=== PATIENT | male | born 1965 | race Caucasian/White ===

== ENCOUNTER 2016-07-07 14:28 | Emergency (ER) | payer OTHER ==
[~2016-07-07] VITALS: Ht 177.8 cm; Wt 70.3 kg
[~2016-07-07 14:28] MED LIST: ADVAIR 250-501 EACH INH; AMITRIPTYLINE H25 M2 PO; AMITRIPTYLINE H75 MG PO; AMITRIPTYLINE100 MG PO; BENTYL 10 MG CA10 MG PO; BENTYL10 M1 PO; CATAPRES 0.1MG0.1 MG PO; CIPRO 500MG (E500 MG PO; CIPRO500 M1 PO; DEPAKOTE ER500 MG PO; DEPAKOTE500 MG; DIVALPROEX SOD250 M2 PO; DIVALPROEX SOD250 M3 PO; DIVALPROEX SOD250 MG PO; DIVALPROEX SOD500 M2 PO; FENTANYL TR75 MCG/HR PO; FENTANYL TR75 MCG/HR TD; FLONASE120 SPRAY/ NASB; GABAPENTIN400 M2 PO; GABAPENTIN800 MG PO; KEPPRA750 M1 PO; LEVETIRACETAM500 MG PO; LEVSIN/SL0.125 MG PO; LEVSIN0.125 M1 PO; LOMOTIL 0.025 M1 TAB PO; MAGNESIUM OXID400 MG PO; MELATONIN3 M4 PO; METHOCARBAMOL750 MG PO; METRONIDAZOLE500 MG PO; MORPHINE SULFAT15 M4 PO; MORPHINE SULFAT15 MG PO; NAPROXEN500 MG PO; NICODERM C21 MG/24 H TOP; NICORETTE4 MG; OXYCODONE AND A1 TA2 PO; PANTOPRAZOLE SO40 M1 PO; PERCOCET 325 MG1 TA2 PO; POLYETHYLE17 GM/Dos2 PO; PRILOSEC20 MG PO; PROAIR HFA0.09 MG/Ac INH; RELISTOR 112 MG/0.6; RELISTOR12 MG/0.2 INJ; RELISTOR12 MG/0.6 SC; REMERON30 MG PO; TOPAMAX100 M1 PO; TYLENOL #31 TAB PO; UPCAL D 2500 MG1 POW PO; VITAMIN D31000 IU PO; ZITHROMAX250 MG PO; ZOFRAN 4 MG TABL4 MG PO; ZOFRAN ODT4 MG SL
--- NOTE | 2016-07-07 14:53 | ED PSYCHIATRIC COMPLAINT ---
History of Present Illness General Chief Complaint: ETOH/Drug Related Complaint Stated Complaint: PT HUNG OVER FROM DRINKING ALCOHOL LAST NIGHT Source: patient, old records, EMS Exam Limitations: no limitations Vital Signs & Intake/Output Vital Signs & Intake/Output Vital Signs Date Time Temp Pulse Resp B/P Pulse O2 O2 Flow FiO2 Ox Delivery Rate 07/07 1906 98.3 69 18 124/74 100 Room Air 07/07 1558 99 Room Air 07/07 1554 98.3 79 18 155/60 07/07 1518 99.0 90 20 155/78 96 Room Air ED Intake and Output 07/08 0000 07/07 1200 Intake Total 60 Output Total Balance 60 Intake, Oral 60 Patient 155 lb Weight Allergies Coded Allergies: Sulfa (Sulfonamide Antibiotics) (Intermediate, HIVES 12/10/15) acetaminophen (From VICODIN) (Intermediate, HIVES 12/10/15) hydrocodone (From VICODIN) (Intermediate, HIVES 12/10/15) tramadol (Intermediate, HIVES 12/10/15) aripiprazole (Intermediate, RASH PER PT. 12/10/15) Reconcile Medications Albuterol Sulfate (Ventolin Hfa) 90 MCG HFA.AER.AD 2 PUF INH Q4-6 PRN PRN COPD (Reported) Amitriptyline HCl 25 MG TABLET 1 TAB PO QPM psychiatric/sleep Divalproex Sodium 500 MG TABLET.DR 1 TAB PO TID SEIZURES (Reported) Divalproex Sodium (Divalproex Sodium ER) 250 MG TAB.ER.24H 1 TAB PO TID SEIZURES (Reported) Fluticasone/Salmeterol (Advair 250-50 Diskus) 1 EACH BLST.W.DEV 1 PUF INH BID ASTHMA (Reported) Gabapentin 400 MG CAPSULE 3 CAP PO TID SEIZURES (Reported) Levetiracetam (Keppra) 750 MG TABLET 1,500 MG PO BID SEIZURES (Reported) Melatonin 3 MG TABLET 2 TAB PO QHS SLEEP (Reported) Methylnaltrexone [place] (Relistor) 12 MG/0.6 ML VIAL 0.6 ML INJ AD PRN CONSTIPATION (Reported) Morphine Sulfate 15 MG TABLET 1 TAB PO BID PAIN (Reported) Pantoprazole Sodium 40 MG TABLET.DR 1 TAB PO DAILY GI (Reported) Tizanidine HCl 4 MG TABLET 1 TAB PO QPM MUSCLE RELAXER (Reported) Topiramate (Topamax) 100 MG TABLET 1 TAB PO BID SEIZURES (Reported) Varenicline Tartrate (Chantix) (Unknown Strength) TAB.DS.PK (Unknown Dose) PO AD SMOKING CESSATION (Reported) Triage Note: RECEIVED 50 YO MALE JOE FROM HOME WITH C/O HE DRANK ALOT OF ALCOHOL LAST NIGHT WITH A FRIEND AND TODAY HE FEELS LIKE HIS HEAD IS SPLITTING AND HE FEELS TERRIBLE. PT DENIES SI OR HI. PT REPORTS HE CAME TO ED BECAUSE HE FEELS VERY SICK SECONDARY TO DRINKING TO MUCH ALCOHOL LAST NIGHT. PT REPORTS HE DRANK SHOTS WITH A FRIEND. PT REPORTS POUNDING HEADACHE. Triage Nurses Notes Reviewed? yes Onset: Abrupt Duration: hour(s): (FEW) Timing: multiple episodes today Severity: mild Associated Symptoms: WORRIED HE MIGHT HAVE A SEIZURE HPI: 50 year old male with history of seizures on depakote and keppra who presents via EMS from home for chief complaint of feeling shaky with headache. Admits to drinking a lot of alcohol last night with his friend. Last drink at 9 pm. He does not drink on a daily basis. No substance abuse. He feels like he might have a seizure. He reports that he has been taking his medications as prescribed. Past History Travel History Traveled to [place] past 21 day No Medical History Any Pertinent Medical History? 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 No Review of Systems Review of Systems Constitutional: Denies: chills, fever. EENTM: Denies: blurred vision. Respiratory: Denies: short of breath. Cardiovascular: Denies: chest pain. GI: Denies: abdominal pain, nausea, vomiting. Genitourinary: Reports: no symptoms. Musculoskeletal: Denies: back pain. Skin: Reports: no symptoms. Neurological/Psychological: Reports: anxiety, tremors. Denies: confusion. Hematologic/Endocrine: Denies: bruising, bleeding, polyuria, polydipsia. Immunologic/Allergic: Denies: splenectomy. All Other Systems: Reviewed and Negative Physical Exam Physical Exam General Appearance: well developed/nourished, alert, awake, mild distress Head: atraumatic Eyes: Bilateral: PERRL, EOMI. Ears, Nose, Throat: normal pharynx, normal ENT inspection, hearing grossly normal Neck: normal inspection, supple Respiratory: normal breath sounds Cardiovascular: regular rate/rhythm Gastrointestinal: soft, non-tender Extremities: normal range of motion Neurological/Psychiatric: no motor/sensory deficits, awake, alert Appearance/Memory/Insight: disheveled Behavoir/Eye Contact/Speech: avoids eye contact, cooperative, normal speech Thoughts/Hallucinations: no apparent hallucination Skin: intact, normal color, warm/dry SAD PERSONS Done? patient not suicidal Progress Differential Diagnosis: ALCOHOL ABUSE, ALCOHOL WITHDRAWAL, SEIZURE DISORDER Plan of Care: Orders Procedure Date/time Status Regular Diet 07/07 D Active CIWA 07/07 1503 Active Add-on Test (ER Only) 07/07 1502 Active URINE DRUGS OF ABUSE 07/07 1454 Complete ETHANOL 07/07 1454 Complete COMPREHENSIVE METABOLIC PANEL 07/07 1454 Complete CBC WITHOUT DIFFERENTIAL 07/07 1454 Complete DEPAKOTE LEVEL 07/07 1452 Complete Laboratory Tests 07/07/16 1749: Urine Opiates Screen > 4000.00 H, Methadone Screen < 40, Barbiturate Screen < 60, Ur Phencyclidine Scrn < 6.00, Amphetamines Screen < 100, U Benzodiazepines Scrn < 85, Urine Cocaine Screen < 50, Urine Cannabis Screen < 5.00 07/07/16 1452: Anion Gap 11, Estimated GFR > 60, BUN/Creatinine Ratio 20.0, Glucose 81, Calcium 9.7, Total Bilirubin 0.5, AST 31, ALT 32, Alkaline Phosphatase 56, Total Protein 7.1, Albumin 3.9, Globulin 3.2, Albumin/Globulin Ratio 1.2, CBC w Diff NO MAN DIFF REQ, RBC 4.75, MCV 91.6, MCH 31.3 H, RDW 13.0, MPV 8.2, Gran % 65.2, Lymphocytes % 24.6, Monocytes % 9.7 H, Eosinophils % 0.2, Basophils % 0.3, Absolute Granulocytes 3.9, Absolute Lymphocytes 1.5, Absolute Monocytes 0.6, Absolute Eosinophils 0, Absolute Basophils 0, PUBS MCHC 34.2, Valproic Acid 47.4 L, Serum Alcohol < 10.0 LOW CIWA SCORE. PATIENT OBSERVED SEVERAL HOURS. NO EVIDENCE OF ACUTE WITHDRAWAL. FEELS BETTER AFTER EATING. (SRINIVAS CHAVEZ,ERIK) Departure Departure Time of Disposition: 1843 Disposition: HOME OR SELF CARE Condition: Stable Clinical Impression Primary Impression: Alcohol abuse Referrals: ERIC CASON APRN (PCP/Family) Additional Instructions: Take your regularly prescribed medications as directed. Please follow-up with doctor in the office. Avoid excessive alcohol intake. Departure Forms: Customer Survey General Discharge Information
[2016-07-07 15:03] LABS: ABSOLUTE BASOPHIL COUNT 0 /CUMM (0.0-0.2); ABSOLUTE EOSINOPHIL COUNT 0 /CUMM (0.0-0.7); ABSOLUTE GRANULOCYTE CT 3.9 /CUMM (1.4-6.5); ABSOLUTE LYMPH COUNT 1.5 /CUMM (1.2-3.4); ABSOLUTE MONOCYTE COUNT 0.6 /CUMM (0.10-0.60); BASOPHIL % 0.3 % (0.0-2.0); EOSINOPHIL % 0.2 % (0-5); HEMATOCRIT 43.6 % (42-52); MEAN CORPUSCULAR HGB 31.3 PG (27.0-31.0); MEAN CORPUSCULAR HGB CONC 34.2 G/DL (33.0-37.0); MEAN CORPUSCULAR VOLUME 91.6 FL (80.0-94.0); MEAN PLATELET VOLUME 8.2 FL (7.4-10.4); PLATELET COUNT 205 /CUMM (130-400); RED BLOOD CELL CT 4.75 /CUMM (4.70-6.10)
[2016-07-07 15:06] LABS: GRANULOCYTE % 65.2 % (42.2-75.2)
[2016-07-07] MEDS ORDERED: VENTOLIN HFA18 GM INH (15:27)
[2016-07-07] MEDS ORDERED: TIZANIDINE HCL4 M1 PO (15:33)
[2016-07-07] MEDS ORDERED: CHANTIX1 EACH PO (15:33)
[2016-07-07 19:06] VITALS: BP 124/74
== END 2016-07-07 19:23 ==
LOC: ERH 14:28
PROVIDERS: Emergency Medicine
DX: F10.10 Alcohol abuse, uncomplicated (principal)
CPT/HCPCS: 80307; G0480

== ENCOUNTER 2016-08-24 12:51 | Emergency (ER) | payer OTHER ==
[~2016-08-24] VITALS: Ht 182.9 cm; Wt 68.9 kg
[~2016-08-24 12:51] MED LIST changes: +CHANTIX1 EACH PO; +TIZANIDINE HCL4 M1 PO; +VENTOLIN HFA18 GM INH
[2016-08-24 13:17] LABS: ABSOLUTE BASOPHIL COUNT 0 /CUMM (0.0-0.2); ABSOLUTE EOSINOPHIL COUNT 0 /CUMM (0.0-0.7); ABSOLUTE GRANULOCYTE CT 3.3 /CUMM (1.4-6.5); ABSOLUTE LYMPH COUNT 2.8 /CUMM (1.2-3.4); ABSOLUTE MONOCYTE COUNT 0.6 /CUMM (0.10-0.60); BASOPHIL % 0.6 % (0.0-2.0); EOSINOPHIL % 0.7 % (0-5); GRANULOCYTE % 48.5 % (42.2-75.2); MEAN CORPUSCULAR HGB 30.4 PG (27.0-31.0); MEAN CORPUSCULAR HGB CONC 33.8 G/DL (33.0-37.0); MEAN CORPUSCULAR VOLUME 89.7 FL (80.0-94.0); MEAN PLATELET VOLUME 7.6 FL (7.4-10.4); PLATELET COUNT 148 /CUMM (130-400); RBC DISTRIBUTION WIDTH 12.9 % (11.5-14.5); RED BLOOD CELL CT 4.56 /CUMM (4.70-6.10); WHITE BLOOD CELL COUNT 6.8 /CUMM (4.8-10.8)
--- NOTE | 2016-08-24 13:34 | ED GENERAL ADULT ---
History of Present Illness General Chief Complaint: General Adult Stated Complaint: WEAKNESS,VOMITING,MULTI COMPLAINTS Source: patient, old records Exam Limitations: poor historian Vital Signs & Intake/Output Vital Signs & Intake/Output Vital Signs Date Time Temp Pulse Resp B/P B/P Pulse O2 O2 Flow FiO2 Mean Ox Delivery Rate 08/24 1435 98.0 70 16 118/70 100 Room Air 08/24 1315 97.8 66 18 110/90 94 Room Air 08/24 1258 97.1 56 18 109/73 94 Room Air Allergies Coded Allergies: Sulfa (Sulfonamide Antibiotics) (Intermediate, HIVES 12/10/15) acetaminophen (From VICODIN) (Intermediate, HIVES 12/10/15) hydrocodone (From VICODIN) (Intermediate, HIVES 12/10/15) tramadol (Intermediate, HIVES 12/10/15) aripiprazole (Intermediate, RASH PER PT. 12/10/15) Reconcile Medications Amitriptyline HCl 25 MG TABLET 1 TAB PO QPM psychiatric/sleep Divalproex Sodium 500 MG TABLET.DR 1 TAB PO TID SEIZURES (Reported) Divalproex Sodium (Divalproex Sodium ER) 250 MG TAB.ER.24H 1 TAB PO TID SEIZURES (Reported) Gabapentin 400 MG CAPSULE 3 CAP PO TID SEIZURES (Reported) Levetiracetam (Keppra) 750 MG TABLET 1,500 MG PO BID SEIZURES (Reported) Magnesium Oxide 400 MG TABLET 1 TAB PO BID SUPPLEMENT (Reported) Melatonin 3 MG TABLET 2 TAB PO QHS SLEEP (Reported) Morphine Sulfate 15 MG TABLET 1 TAB PO BID PAIN (Reported) Ondansetron (Zofran Odt) 4 MG TAB.RAPDIS 1 TAB SL TID PRN nausea Ondansetron (Zofran Odt) 4 MG TAB.RAPDIS 1 TAB SL TID PRN nausea Pantoprazole Sodium 40 MG TABLET.DR 1 TAB PO DAILY GI (Reported) Tizanidine HCl 4 MG TABLET 1 TAB PO QPM MUSCLE RELAXER (Reported) Topiramate (Topamax) 100 MG TABLET 1 TAB PO DAILY SEIZURES (Reported) Topiramate (Topamax) 100 MG TABLET 1.5 TAB PO QPM SEIZURES (Reported) Triage Note: PT COMPLAINS OF N/V/D SINCE WEDNESDAY. UNABLE TO KEEP ANYTHING DOWN Triage Nurses Notes Reviewed? yes HPI: Patient is a 50-year-old male presents with multiple complaints. Patient reports that he has been having 1 episode of vomiting for the past 2-3 days. For the past 4-5 days patient has been having decreased appetite and feels that food and beverages had a lack of taste. Patient also reports increased tremors in his upper extremities. Reports that these tremors up in chronic since childhood but have been worsening over the past couple of weeks. One week of midline back pain in an area that is different than his chronic back pain. Pain is an aching sensation. Patient reports that he is having difficulty standing up straight at home and it may be due to his chronic back pain. Patient called his primary doctor today and was referred to the emergency department for further evaluation. Patient denies fevers, chills, diarrhea, difficulty with urination, recent trauma, headache. (SON MICHELE) Past History Travel History Traveled to [place] past 21 day No Medical History Any Pertinent Medical History? 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 No (SON MICHELE) Review of Systems Review of Systems Constitutional: Reports: malaise, weakness. Denies: chills, fever. EENTM: Reports: no symptoms. Respiratory: Denies: cough, short of breath. Cardiovascular: Denies: chest pain, peripheral edema. GI: Reports: nausea, vomiting. Denies: abdominal pain, diarrhea. Genitourinary: Reports: no symptoms. Musculoskeletal: Reports: back pain. Skin: Reports: no symptoms. Neurological/Psychological: Reports: weakness, other (UPPER EXTREMITY TREMORS). Denies: headache, numbness, paresthesia. Hematologic/Endocrine: Denies: bruising, bleeding. Immunologic/Allergic: Denies: splenectomy. (NICK MICHELE Physical Exam Physical Exam General Appearance: alert, awake Head: atraumatic, normal appearance Eyes: Bilateral: normal appearance, PERRL, EOMI. Ears, Nose, Throat: hearing grossly normal Neck: normal inspection, supple, full range of motion, no midline tenderness Respiratory: normal breath sounds, chest non-tender, no respiratory distress, lungs clear Cardiovascular: regular rate/rhythm Gastrointestinal: normal bowel sounds, soft, non-tender Back: normal inspection, normal range of motion, no vertebral tenderness, NO PARASPINAL TENDERNESS Extremities: normal inspection, normal capillary refill, normal range of motion Neurologic/Psych: awake, alert, oriented x 3, normal gait, sketch artist II-XII nml as tested, flat affect. tremors bilatral upper extremities that appear to be more pronounced when patient is focusing on the tremors Skin: intact, normal color, warm/dry Lymphatic: no anterior cervical jones Core Measures ACS in differential dx? No CVA/TIA Diagnosis: No Severe Sepsis Present: No Septic Shock Present: No (SON MICHELE) Progress Differential Diagnoses I considered the following diagnoses in my evaluation of the patient: medication reaction, chronic pain, opiate withdrawal, electrolyte abnormality, uti Plan of Care: Orders Procedure Date/time Status Add-on Test (ER Only) 08/24 1334 Active Add-on Test (ER Only) 08/24 1332 Active URINE DRUG SCREEN FOR ER ONLY 08/24 1331 Complete MAGNESIUM 08/24 1310 Complete ETHANOL 08/24 1310 Complete DEPAKOTE LEVEL 08/24 1310 Complete URINALYSIS 08/24 1300 Complete COMPREHENSIVE METABOLIC PANEL 08/24 1300 Complete CBC WITHOUT DIFFERENTIAL 08/24 1300 Complete Laboratory Tests 08/24/16 1431: Urine Opiates Screen > 4000.00 H, Methadone Screen 62, Barbiturate Screen 71, Ur Phencyclidine Scrn < 6.00, Amphetamines Screen < 100, U Benzodiazepines Scrn < 85, Urine Cocaine Screen < 50, Urine Cannabis Screen < 5.00, Urine Color JAMES , Urine Clarity CLEAR, Urine pH 6.0, Ur Specific [place] 1.025, Urine Protein 30 H, Urine Ketones NEG, Urine Nitrite NEG, Urine Bilirubin NEG@ICTO, Urine Urobilinogen 2.0 H, Ur Leukocyte Esterase NEG, Ur Microscopic SEDIMENT EXAMINED , Urine RBC 5-10 H, Urine WBC 1-3 H, Ur Epithelial Cells FEW, Urine Mucus FEW, Urine Hemoglobin NEG, Urine Glucose NEG 08/24/16 1310: Anion Gap 9, Estimated GFR > 60, BUN/Creatinine Ratio 18.9, Glucose 87, Calcium 9.2, Magnesium 1.8, Total Bilirubin 0.7, AST 19, ALT 25, Alkaline Phosphatase 55 , Total Protein 7.1, Albumin 3.6, Globulin 3.5, Albumin/Globulin Ratio 1.0 L, CBC w Diff NO MAN DIFF REQ, RBC 4.56 L, MCV 89.7, MCH 30.4, RDW 12.9, MPV 7.6, Gran % 48.5, Lymphocytes % 40.7, Monocytes % 9.5 H, Eosinophils % 0.7, Basophils % 0.6, Absolute Granulocytes 3.3, Absolute Lymphocytes 2.8, Absolute Monocytes 0.6, Absolute Eosinophils 0, Absolute Basophils 0, PUBS MCHC 33.8, Valproic Acid 138.3 H, Serum Alcohol < 10.0 1530: Results of labs and x-ray discussed with patient. Patient appears stable for discharge with close outpatient follow-up. (BERNADINE AVILA,SON) Diagnostic Imaging: Viewed by Me: Radiology Read. Discussed w/RAD: Radiology Read. Radiology Impression: PATIENT: KARLA PATTON PRESENT AGE: 50 PATIENT ACCOUNT NO: [id number] : 67 LOCATION: [facility] ORDERING PHYSICIAN: SON AVILA SERVICE DATE: 08/24/16 EXAM TYPE: RAD - XRY-LUMBOSACRAL SPINE 4 VIEWS EXAMINATION: XR LUMBOSACRAL SPINE CLINICAL INFORMATION: Midline lumbar pain. Rule out compression fracture. COMPARISON: Portions of abdomen and pelvic CT of 11/15/2015. TECHNIQUE: LUMBAR SPINE 4 VIEWS: AP and lateral views of the lumbar spine and coned-down AP and lateral views of L5-S1 are acquired. FINDINGS: There are 5 lumbar-type nondependent vertebrae. There is minimal left convex curvature of the spine. The vertebral body heights and alignment are maintained. Posterior fusion hardware at L5-S1 is unchanged in configuration. Intervertebral disc spaces are well preserved. Minimal anterior endplate hypertrophic spurring is noted. Sacroiliac joints and visualized hip joints are unremarkable. A neurostimulator device is again noted the stimulator wire entering the spinal canal at approximately at the T12-L1 level and coursing more superiorly. Surgical clips are noted projecting over the right pelvis. IMPRESSION: No evidence of compression fracture in the lumbar spine. No significant interval change is noted compared to the previous CT of 11/15/2015. DICTATED BY: COTY VINCENT MD DATE/TIME DICTATED:08/24/161434 COUNTERINTELLIGENCE AGENT:ARIELLE DATE/TIME TRANSCRIBED:1434 CONFIDENTIAL, DO NOT COPY WITHOUT APPROPRIATE AUTHORIZATION. < Electronically signed in Other Vendor System> SIGNED BY: COTY VINCENT MD 12/03 1456 Initial ED EKG: none (SON MICHELE) Departure Departure Time of Disposition: 1527 Disposition: HOME OR SELF CARE Condition: Stable Clinical Impression Primary Impression: Exacerbation of chronic back pain Secondary Impressions: Has a tremor, Nausea Referrals: MARGARET CHAVEZ,ANA MARÍA Additional Instructions: Your Depakote level was mildly elevated. Do not take your night time dose then resume as previously directed. Call your doctor in the morning for repeat testing later this week and for appointment for further evaluation. Also follow up with your psychiatrist for further evaluation. Call this afternoon for appointment. Return to the ER if worsening of symptoms. Departure Forms: Customer Survey General Discharge Information Prescriptions: Current Visit Scripts Ondansetron (Zofran Odt) 1 TAB SL TID PRN nausea #10 TAB Ondansetron (Zofran Odt) 1 TAB SL TID PRN nausea #10 TAB (SON MICHELE) PA/LEHR TENDER Co-Sign Statement Statement: ED Attending supervision documentation- [] I saw and evaluated the patient. I have also reviewed all the pertinent lab results and diagnostic results. I agree with the findings and the plan of care as documented in the PA's/LEHR TENDER's documentation. [X] I have reviewed the ED Record and agree with the PA's/LEHR TENDER's documentation. [] Additions or exceptions (if any) to the PAs/LEHR TENDER's note and plan are summarized below: [] (SRINIVAS CHAVEZ,ERIK) Critical Care Note Critical Care Note Critical Care Time: non-applicable (SON MICHELE)
[2016-08-24 14:35] VITALS: BP 118/70
[2016-08-24] MEDS ORDERED: MAGNESIUM OXID400 M1 PO (14:52)
[2016-08-24] MEDS ORDERED: TOPAMAX100 M1 PO (14:53)
--- NOTE | 2016-08-24 14:56 | RADIOLOGY REPORT ---
EXAMINATION: XR LUMBOSACRAL SPINE CLINICAL INFORMATION: Midline lumbar pain. Rule out compression fracture. COMPARISON: Portions of abdomen and pelvic CT of 11/15/2015. TECHNIQUE: LUMBAR SPINE 4 VIEWS: AP and lateral views of the lumbar spine and coned-down AP and lateral views of L5-S1 are acquired. FINDINGS: There are 5 lumbar-type nondependent vertebrae. There is minimal left convex curvature of the spine. The vertebral body heights and alignment are maintained. Posterior fusion hardware at L5-S1 is unchanged in configuration. Intervertebral disc spaces are well preserved. Minimal anterior endplate hypertrophic spurring is noted. Sacroiliac joints and visualized hip joints are unremarkable. A neurostimulator device is again noted the stimulator wire entering the spinal canal at approximately at the T12-L1 level and coursing more superiorly. Surgical clips are noted projecting over the right pelvis. IMPRESSION: No evidence of compression fracture in the lumbar spine. No significant interval change is noted compared to the previous CT of 11/15/2015.
[2016-08-24] MEDS ORDERED: ZOFRAN ODT4 M1 SL ×2 (15:28→15:31)
== END 2016-08-24 15:38 ==
LOC: ERH 12:51
PROVIDERS: Emergency Medicine
DX: M54.9 Dorsalgia, unspecified (principal); R25.1 Tremor, unspecified; R11.2 Nausea with vomiting, unspecified
CPT/HCPCS: 72110; 80307; 81001; 96374; 96375; G0480; J1885; J2405

== ENCOUNTER 2016-09-11 14:58 | Observation (INO) | payer OTHER ==
[~2016-09-11] VITALS: Ht 182.9 cm; Wt 59.0 kg
[~2016-09-11 14:58] MED LIST changes: +MAGNESIUM OXID400 M1 PO; +ZOFRAN ODT4 M1 SL
--- NOTE | 2016-09-11 15:05 | NUR ---
51 Y/O MALE BIBA TO TRIAGE C/O DIFFUSE ABDOMINAL PAIN AND N/V/D X 1 WEEK; SYMPTOMS BEGAN WITH PT STARTING PRESCRIPTION OF HALDOL - CONCERNED SYMPTOMS ARE SIDE EFFECT OF MED.
--- NOTE | 2016-09-11 16:49 | ED GI/GU/ABDOMINAL COMPLAINT ---
History of Present Illness General Chief Complaint: Abdominal Pain/Flank Pain Stated Complaint: "PER EMS ABD PAIN, N+V+D FOR OAST WEEK" Source: patient Exam Limitations: no limitations Vital Signs & Intake/Output Vital Signs & Intake/Output Vital Signs Date Time Temp Pulse Resp B/P B/P Pulse O2 O2 Flow FiO2 Mean Ox Delivery Rate 09/12 1737 97.5 58 20 90/60 97 09/12 1200 54 106/68 09/12 0800 97.9 56 20 100/70 98 Room Air 09/12 0033 96.6 36 20 130/80 99 Room Air 09/11 2301 97.2 47 16 116/64 100 Room Air 09/11 2111 97.0 44 15 118/62 100 Room Air Room Air 09/11 2031 97.9 39 15 110/60 100 Room Air Room Air ED Intake and Output 09/12 0000 09/11 1200 Intake Total 1000 Output Total Balance 1000 Intake, IV 1000 Intake, Oral 0 Patient 130 lb Weight Weight Reported by Patient Measurement Method Allergies Coded Allergies: Sulfa (Sulfonamide Antibiotics) (Intermediate, HIVES 12/10/15) acetaminophen (From VICODIN) (Intermediate, HIVES 12/10/15) hydrocodone (From VICODIN) (Intermediate, HIVES 12/10/15) tramadol (Intermediate, HIVES 12/10/15) aripiprazole (Intermediate, RASH PER PT. 12/10/15) Triage Note: 51 Y/O MALE BIBA TO TRIAGE C/O DIFFUSE ABDOMINAL PAIN AND N/V/D X 1 WEEK; SYMPTOMS BEGAN WITH PT STARTING PRESCRIPTION OF HALDOL - CONCERNED SYMPTOMS ARE SIDE EFFECT OF MED. Triage Nurses Notes Reviewed? yes Onset: Gradual Duration: constant Timing: recent history Severity Numbers: 6 Location: generalized abdomen Radiation: no radiation Activities at Onset: none HPI: Patient is a 51-year-old male who presents emergency room brought in by ambulance for concerns of a one-week history of nausea vomiting diarrhea and generalized moderate nonradiating abdominal pain. Patient is stating that he recently went on Haldol prior to the onset of symptoms and is stating that the medication is making him have the symptoms. It is noted through old records the patient has presented the emergency room on multiple occasions to [place] emergency room for similar complaints as stated above. Patient states that 3 days ago he did have an episode of vomiting however this is after ingesting potato chips in which she states that he believes that the potato chips "got stuck" in his throat. Patient also has been complaining of multiple last dose of loose watery diarrhea production with no melena no bright red blood noted. Patient denies any recent antibiotic use. Denies any fever chills chest pain shortness of breath cough back pain. Patient does state that today he did eat a sandwich with no change in symptoms and was able tolerate. (SHON AVILA,PERCY) Reconcile Medications Amitriptyline HCl 25 MG TABLET 1 TAB PO QPM psychiatric/sleep Dicyclomine Hydrochloride (Bentyl) 10 MG CAPSULE 1 CAP PO TID ABDOMINAL DISCOMFORT Divalproex Sodium (Divalproex Sodium ER) 250 MG TAB.ER.24H 1 TAB PO TID SEIZURES (Reported) Gabapentin 400 MG CAPSULE 3 CAP PO TID SEIZURES (Reported) Haloperidol (Unknown Strength) TABLET (Unknown Dose) UNKNOWN (Reported) Levetiracetam (Keppra) 750 MG TABLET 1,500 MG PO BID SEIZURES (Reported) Loperamide HCl (Imodium A-D) 2 MG CAPSULE 1 TAB PO BID PRN DIARRHEA Magnesium Oxide 400 MG TABLET 1 TAB PO BID SUPPLEMENT (Reported) Melatonin 3 MG TABLET 2 TAB PO QHS SLEEP (Reported) Morphine Sulfate 15 MG TABLET 1 TAB PO BID PRN PAIN (Reported) Pantoprazole Sodium 40 MG TABLET.DR 1 TAB PO DAILY GI (Reported) Tizanidine HCl 4 MG TABLET 1 TAB PO QPM MUSCLE RELAXER (Reported) Topiramate (Topamax) 100 MG TABLET 0.5 TAB PO QPM SEIZURES (Reported) Topiramate (Topamax) 100 MG TABLET 2 TAB PO QPM SEIZURES (Reported) (LAKSHMI CHAVEZ,ALEXX Bill) Past History Travel History Traveled to [place] past 21 day No Medical History Any Pertinent Medical History? 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 No (PERCY LARSON) Review of Systems Review of Systems Constitutional: Reports: no symptoms. EENTM: Reports: no symptoms. Respiratory: Reports: no symptoms. Cardiovascular: Reports: no symptoms. GI: Reports: see HPI, abdominal pain, nausea, vomiting. Genitourinary: Reports: no symptoms. Musculoskeletal: Reports: no symptoms. Skin: Reports: no symptoms. Neurological/Psychological: Reports: no symptoms. Hematologic/Endocrine: Reports: no symptoms. Immunologic/Allergic: Reports: no symptoms. All Other Systems: Reviewed and Negative (PERCY LARSON) Physical Exam Physical Exam General Appearance: cachetic Gastrointestinal: normal bowel sounds, soft, MILD GENERALIZED POINT TENDERNESS NOTED Comments: HEENT: Normal EENT exam, Neck: Supple, no lymphadenopathy, normal range of motion without pain or tenderness Back: Nontender, no CVA tenderness. Cardiovascular: Regular rate and rhythms no murmurs rubs or gallops, normal JVP Respiratory: Chest nontender. No respiratory distress.breath sounds clear to auscultation bilaterally Extremity: No edema, no calf tenderness to palpation, normal and equal pulses. Neuro: Alert oriented x3, motor sensory normal, Skin: No appreciable rash on exposed skin, skin is warm and dry. Psych: Mood and affect is normal, memory and judgment is normal. Core Measures ACS in differential dx? No Severe Sepsis Present: No Septic Shock Present: No (PERCY LARSON) Progress Differential Diagnosis: AAA, AMI, appendicitis, biliary colic, bowel obstruction , colon cancer, cholecystitis, diverticulitis, epididymitis, esophageal varices, gastritis, hepatitis, hernia, hemorrhoids, ischemic bowel, inflamm bowel dis, Shani-Kelsi tear, orchitis, pancreatitis, prostatitis, peptic ulcer, PUD/GERD, perforated viscous, pyelonephritis, SBO, testicular torsion, ureterolithiasis, urinary retention, urethritis, UTI/pyelo Plan of Care: Orders Procedure Date/time Status Regular Diet 09/12 B Active TROPONIN LEVEL 09/12 30 Complete EKG 09/12 30 Active Vital Signs 09/12 24 Active Teach/Educate 09/12 24 Active Pain Treatment and Response 09/12 24 Active Nutritional Intake, Monitor 09/12 24 Active Isolation 09/12 24 Active Intake & Output 05/27 0025 Active Patient Care Conference 09/12 0025 Active Activity/Ambulation 09/12 0025 Active Pathway - chart 09/12 0022 Active OVA AND PARASITE ANTIGENS 09/12 0011 Active PT Evaluate & Treat 09/12 UNK Active Lab Add-on Test 09/12 UNK Active Precautions 09/12 UNK Complete Precautions 09/12 UNK Active Hemoccult 09/12 UNK Active Heat/Cold Therapy 09/12 UNK Active Seizure Precautions 09/11 2332 Active Pathway - chart 09/11 2251 Active House Staff 09/11 2251 Active Saline Lock 09/[address] in observation 09/11 2222 Active Misc Message 09/11 2222 Active ED Holding Orders 09/11 2222 Active Vital Signs 09/11 2222 Complete Code Status 09/11 2222 Active Patient Data 09/11 2218 Active Add-on Test (ER Only) 09/12 2103 Active Add-on Test (ER Only) 09/11 203 Active Intake & Output 09/11 1743 Complete THYROID STIMULATING HORMONE 09/11 1705 Complete THYROXINE 09/11 1705 Complete LYME TITRE 09/11 1705 Active Lab Add-on Test 09/11 UNK Active VTE Mechanical Prophylaxis 09/11 UNK Active Vital Signs 09/11 UNK Active Intake & Output 09/11 UNK Active Current Medications Sig/Onur Start time Last Medication Dose Stop Time Status Admin Topiramate 50 MG QPM 09/12 2200 AC (Topamax) Dicyclomine HCl 10 MG TID 09/12 1000 AC 09/12 (Bentyl) 1652 Gabapentin 1,200 MG TID 09/12 1000 AC 09/12 (Neurontin) 1652 Levetiracetam 1,500 MG BID 09/12 1000 AC 09/12 (Keppra) 1029 Heparin Sodium 5,000 UNIT Q8 09/12 0045 AC 09/12 (Porcine) 1419 Lidocaine 1 PAT Q24H PRN 09/12 0030 AC 09/12 (Lidoderm) 1056 Morphine Sulfate 0.5 MG Q4-6 PRN PRN 09/12 0030 AC (Morphine) Morphine Sulfate 7.5 MG DAILY PRN 09/12 0030 AC 09/12 (Ms Contin) 1754 Magnesium Oxide 400 MG BID 09/11 235 AC 09/12 (Mag-Ox) 1029 Omeprazole 40 MG DAILY AC 09/11 2358 09/12 (Prilosec) 0625 Topiramate 200 MG BID 09/11 2358 09/12 (Topamax) 1029 Divalproex Sodium 250 MG TID 09/11 2349 09/12 (Depakote) 1652 Laboratory Tests 09/12/16 0910: Ref Lab Test Result Pending, Levetiracetam Pending 09/12/16 0105: Troponin I < 0.01 Microbiology 09/12 001 STOOL: Cryptosporidium Antigen - COLB 09/12 001 STOOL: Giardia Antigen (PAYAL) - COLB Patient currently is resting comfortably at bedside no apparent distress afebrile nontoxic appearing It is noted that my suspicion of that Haldol induced symptoms presented today by patient is low in which there is no significant concern from pharmacy reconciliation that HALDOL has significant concerns of GI issues Prior to discharge patient was noted to have s concerns of bradycardia in the 30s where EKG did confirm. Patient has been on ekg monitor noted to be 30s to 40s beats per minute bradycardia. Patient is resting comfortably in no apparent distress. There is concern of opiate use in which patient was recently prescribed medications of narcotics and patient's urine drug screen does prove of significant opiate use. Patient was evaluated upon ambulation and noted to be normal gait denies any symptoms of lightheaded dizziness and was asymptomatic upon ambulation. Bradycardia still persists Narcan will be administereD Patient had no change of bradycardia after Narcan was administered. Discussed admission with Dr. Higgins who advised patient to be admitted to telemetry observation patient will require further evaluation, medication reconciliation for possible causation of patient's bradycardia, echocardiogram, telemetry monitoring and cardiology consultation (PERCY LARSON) Initial ED EKG: sINUS RHYTHM 32 BPM (PERCY LARSON) Departure Departure Disposition: STILL A PATIENT Condition: Stable Clinical Impression Primary Impression: Bradycardia Secondary Impressions: Abdominal pain, Diarrhea, Nausea & vomiting, Opiate abuse , continuous Referrals: ANA MARÍA ROBLES MD (PCP/Family) Departure Forms: Customer Survey General Discharge Information Prescriptions: Current Visit Scripts Loperamide HCl (Imodium A-D) 1 TAB PO BID PRN DIARRHEA #6 TAB Dicyclomine Hydrochloride (Bentyl) 1 CAP PO TID #9 CAP Observation Note Spoke With: Roxann HIGGINS MD Physician Advisor Notified: CHEPE SANTOS MD Patient In: Non-ED OBS Care Area Rationale for Observation: My rational for observation is as follows [patient requires telemetry observation for concern of significant bradycardia persistently in the emergency room. Patient requires cardiology consultation, repeat labs, ekg monitor echocardiogram and medication reconciliation for possible causation of patient's etiology of bradycardia.]. (PERCY LARSON) PA/FEED BLENDER Co-Sign Statement Statement: ED Attending supervision documentation- [] I saw and evaluated the patient. I have also reviewed all the pertinent lab results and diagnostic results. I agree with the findings and the plan of care as documented in the PA's/FEED BLENDER's documentation. [x] I have reviewed the ED Record and agree with the PA's/FEED BLENDER's documentation. [] Additions or exceptions (if any) to the PAs/FEED BLENDER's note and plan are summarized below: [] (LAKSHMI CHAVEZ,ALEXX Bill) PA/FEED BLENDER Co-Sign Statement Statement: ED Attending supervision documentation- [] I saw and evaluated the patient. I have also reviewed all the pertinent lab results and diagnostic results. I agree with the findings and the plan of care as documented in the PA's/FEED BLENDER's documentation. [] I have reviewed the ED Record and agree with the PA's/FEED BLENDER's documentation. [] Additions or exceptions (if any) to the PAs/FEED BLENDER's note and plan are summarized below: [] (ASHLEY NARANJO DO) Observation Note Spoke With: Roxann HIGGINS MD Physician Advisor Notified: CHEPE SANTOS MD Patient In: Non-ED OBS Care Area Rationale for Observation: My rational for observation is as follows [patient requires telemetry observation for concern of significant bradycardia persistently in the emergency room. Patient requires cardiology consultation, repeat labs, ekg monitor echocardiogram and medication reconciliation for possible causation of patient's etiology of bradycardia.]. (PERCY LARSON) PA/FEED BLENDER Co-Sign Statement Statement: ED Attending supervision documentation- [] I saw and evaluated the patient. I have also reviewed all the pertinent lab results and diagnostic results. I agree with the findings and the plan of care as documented in the PA's/FEED BLENDER's documentation. [x] I have reviewed the ED Record and agree with the PA's/FEED BLENDER's documentation. [] Additions or exceptions (if any) to the PAs/FEED BLENDER's note and plan are summarized below: [] (LAKSHMI CHAVEZ,ALEXX Bill)
[2016-09-11 17:12] LABS: HEMATOCRIT 34.2 % (42-52); MEAN CORPUSCULAR HGB 30.8 PG (27.0-31.0); MEAN CORPUSCULAR HGB CONC 33.7 G/DL (33.0-37.0); MEAN CORPUSCULAR VOLUME 91.4 FL (80.0-94.0); MEAN PLATELET VOLUME 8.3 FL (7.4-10.4); PLATELET COUNT 139 /CUMM (130-400); RBC DISTRIBUTION WIDTH 13.6 % (11.5-14.5); WHITE BLOOD CELL COUNT 7.2 /CUMM (4.8-10.8)
[2016-09-11 17:25] LABS: RED BLOOD CELL CT 3.7 /CUMM (4.70-6.10)
--- NOTE | 2016-09-11 17:41 | NUR ---
PT MEDICATED WITH BENTYL AND TYLENOL. PT REPORTS HE IS ALLERGIC TO VICODIN, BUT HAS TAKEN ACETOMINEPHEN IN THE PAST WITHOUT COMPLICATIONS.
--- NOTE | 2016-09-11 17:47 | NUR ---
PT NOTED TO BE BRADYCARDIC, 33 ON NIGHT WAREHOUSE MANAGER. EKG DONE STAT AND SHOWN TO DR. ESPINO, PT IS ASYMPTOMATIC AND BP IS STABLE. NO SOB, O2 SAT 100% ON RA.
[2016-09-11] MEDS ORDERED: IMODIUM A-D2 M2 PO (17:49)
[2016-09-11] MEDS ORDERED: BENTYL10 M1 PO (17:49)
[2016-09-11] MEDS ORDERED: HALOPERIDOL0.5 M1 (17:50)
--- NOTE | 2016-09-11 18:14 | NUR ---
SECOND LITER OF NS BOLUS INFUSING NOW. PT GIVEN URINAL TO PROVIDE URINE SAMPLE.
--- NOTE | 2016-09-11 18:22 | NUR ---
URINE TRIO SENT TO LAB NOW.
--- NOTE | 2016-09-11 18:44 | NUR ---
REGULAR FOOD TRAY ORDERED FOR PT
--- NOTE | 2016-09-11 18:56 | NUR ---
PT CONTINUES TO BE BRADYCARDIC, 31-35. PT ASYMPTOMATIC, BLOOD PRESSURE STABLE, PT CONVERSING.
--- NOTE | 2016-09-11 19:45 | NUR ---
PT AMBULATED IN HALLWAY. PTs HEART RATE 42 ON PALPATION BEFORE AND DURRING AMBULATION.
--- NOTE | 2016-09-11 20:41 | NUR ---
PT MEDICATED WITH NARCAN PER EMAR.
--- NOTE | 2016-09-11 21:12 | NUR ---
PT CONTINUES TO BE ASYMPTOMATIC, BUT STILL BRADYCARDIC 30'S-40. BP STABLE. WILL CONTINUE TO MONITOR.
--- NOTE | 2016-09-11 21:55 | NUR ---
PT RESTING COMFORTABLY ON STRETCHER. OFFERS NO COMPLAINTS AT THIS TIME. SINUS GUILLERMO ON MONITOR.
--- NOTE | 2016-09-11 22:31 | NUR ---
HOUSE STAFF AT BEDSIDE
--- NOTE | 2016-09-11 22:44 | NUR ---
PT BED ASSIGNMENT [id number]
--- NOTE | 2016-09-11 22:50 | History & Physical ---
See Addendum AFSHIN CHAVEZ,AISHACourt 09/11/16 3009: General Information and HPI MD Statement: I have seen and personally examined KARLA PATTON and documented this H&P. The patient is a 51 year old M who presented with a patient stated chief complaint of [nausea, vomiting, diarrhea]. Source of Information: patient, old records Exam Limitations: unable to give history, poor historian History of Present Illness: This is a 51-year-old male with past medical history significant for Neurostimulator in lumbar spine, seizure disorder GERD, COPD comes in for chief complaint of nausea, vomiting, diarrhea for the past 1 week. Patient is a frequent user of emergency department services. Seen on 07/07/2016 for EtOH related complaint, 08/19 for nausea/ vomiting/ diarrhea. Prior to those visitis, in 2016 pt was often seen in ED post seizure or with abdominal pain/flank pain. Normally he is workup and discharged home. However, today, for the first time, patient was noted to have bradycardia in the 30s in addition to his nausea, vomiting and diarrhea. Patient is a poor historian but is alert and oriented 3. He states that, on average, for the past week he has been having 4-5 watery bowel movements a day. These have been happening since he was started on Haldol and he was concerned it was a side effect. Apparently, the medication was stopped today. It is currently unclear why he was started this medication. Denies any attempt of overdose, denies any new medications other than Haldol. He states that he infrequently drinks alcohol. Denies any IV drugs. Denies any recent travel or tick bite. States he is compliant with medication regimen. He lives alone at home. There is a nurse contact on his medication list; we attempted to call but no answer. Allergies/Medications Allergies: Coded Allergies: Sulfa (Sulfonamide Antibiotics) (Intermediate, HIVES 12/10/15) acetaminophen (From VICODIN) (Intermediate, HIVES 12/10/15) hydrocodone (From VICODIN) (Intermediate, HIVES 12/10/15) tramadol (Intermediate, HIVES 12/10/15) aripiprazole (Intermediate, RASH PER PT. 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 Ambulation: independent IADLs Independent: shopping, housework, finances, food prep, telephone, transportation , medication admin. Employment History Employment Disability Review of Systems Review of Systems Constitutional: Denies: chills, diaphoresis, fever, malaise, weakness. EENTM: Denies: blurred vision, double vision. Cardiovascular: Denies: chest pain, edema, palpitations, syncope. Respiratory: Denies: cough, hemoptysis, orthopnea, short of breath, sputum production. GI: Reports: abdominal pain, diarrhea, vomiting. Genitourinary: Reports: no symptoms. Musculoskeletal: Reports: back pain. Skin: Reports: no symptoms. Exam & Diagnostic Data Last 24 Hrs of Vital Signs/I&O Vital Signs Date Time Temp Pulse Resp B/P B/P Pulse O2 O2 Flow FiO2 Mean Ox Delivery Rate 09/12 0033 96.6 36 20 130/80 99 Room Air 09/11 2301 97.2 47 16 116/64 100 Room Air 09/11 2111 97.0 44 15 118/62 100 Room Air Room Air 09/11 2031 97.9 39 15 110/60 100 Room Air Room Air 09/11 1914 98.1 34 15 118/62 99 Room Air Room Air 09/11 1838 35 15 110/70 99 Room Air Room Air 09/11 1804 44 15 104/62 100 Room Air Room Air 09/11 1747 97.4 36 15 102/64 100 Room Air Room Air 09/11 1743 Room Air Room Air 09/11 1741 97.7 09/11 1504 97.7 54 18 97/57 100 Room Air Intake & Output 09/12 0800 09/12 0000 09/11 1600 Intake Total 1000 Output Total Balance 1000 Intake, IV 1000 Intake, Oral 0 Patient 58.967 kg 58.967 kg Weight Weight Reported by Patient Measurement Method Physical Exam General Appearance Oriented X3, Cooperative, No Acute Distress Skin No Significant Lesion HEENT Atraumatic, EOMI Neck Supple Cardiovascular bradycardia. No nurmurs, rubs or gallops Lungs Normal Air Movement Abdomen tenderness to palpation in lower quadrants. There is 2 cm incision under umbilicus. -ve [place] sign. No rebound, or rigidity. Neurological speech slow Extremities No Edema, Normal Pulses, patient has a scar in lower back for stimulator Last 24 Hrs of Labs/Michael: Laboratory Tests 09/12/16 0105: Troponin I Pending 09/11/16 1820: Urine Opiates Screen > 4000.00 H, Methadone Screen 43, Barbiturate Screen 66, Ur Phencyclidine Scrn < 6.00, Amphetamines Screen < 100, U Benzodiazepines Scrn < 85, Urine Cocaine Screen < 50, Urine Cannabis Screen < 5.00, Urine Color YEL, Urine Clarity CLEAR, Urine pH 6.0, Ur Specific [place] 1.020, Urine Protein NEG, Urine Ketones TRACE H, Urine Nitrite NEG, Urine Bilirubin NEG, Urine Urobilinogen 1.0, Ur Leukocyte Esterase NEG, Ur Microscopic EXAM NOT REQUIRED, Urine Hemoglobin NEG, Urine Glucose NEG 09/11/16 1705: Anion Gap 8, Estimated GFR > 60, BUN/Creatinine Ratio 24.3, Glucose 81, Calcium 8.7, Total Bilirubin 0.4, AST 18, ALT 27, Alkaline Phosphatase 54, Troponin I < 0.01, Total Protein 6.3, Albumin 3.1 L, Globulin 3.2, Albumin/Globulin Ratio 1.0 L, Amylase 104, Lipase 150, TSH 1.530, Thyroxine (T4) 6.1, CBC w Diff MAN DIFF ORDERED, RBC 3.7 L, MCV 91.4, MCH 30.8, RDW 13.6, MPV 8.3, Segmented Neutrophils 28 L, Band Neutrophils 1, Lymphocytes 63 H, Monocytes 4, Eosinophils 4, Platelet Estimate ADEQUATE, Normocytic RBCs VERIFIED, Normochromic RBCs VERIFIED, PUBS MCHC 33.7, Lyme Disease Antibody Pending, Valproic Acid 85.3 Microbiology 09/12 10 STOOL: Cryptosporidium Antigen - ORD 09/12 10 STOOL: Giardia Antigen (MICHAEL) - ORD Assessment/Plan Assessment: This is a 51-year-old male past medical history significant for COPD, GERD, seizure disorder, who comes in for chief complaint of nausea vomiting and diarrhea. He is found to have heart rate in the 30s. Given new evidence of bradycardia patient is coming in for observation in telemetry unit. ED workup shows: Vitals: 97.5, 54, 18, 97/57, 100. The next set of vitals showed 97.4, 36, 15, 102/64, 100. In ED was repeatedly in mid 30s to 40s for heart rate. UA with trace ketones. Greater than 4000 and urine opiate screen. CBC: White count 7.2, hemoglobin 11.5, hematocrit 34.2 BEP: Within normal limits Albumin 3.1 Negative amylase, negative lipase, normal TSH, normal T4. Therapeutic valproic acid level EKG: Normal sinus rhythm with rate of 37 PLAN Bradycardia: Etiology of bradycardia is currently unclear. Patient has never had heart rate in the 30s it is numerous ED visits. He was noted to be in the 40s and 50s however. At this time patient is entirely asymptomatic. No evidence of any heart block on EKG. Note the patient does take multiple medications for seizure prophylaxis, depression, and pain. He denies overdosing on meds but Tizandine and amitriptyline have potential side effects of bradycardia. The only new medication that patient is on is Haldol which was started about a week ago per patient. He also has significant prescription for opiates and his tox screen is accordintly positive. He received a dose of Narcan in ED with no change in HR. Haldol has anticholinergic effects which would be the opposite patient's current presentation of bradycardia. * Depakote level * Keppra level * TCA level * TFTs * Lyme titer * Temporary pacer at bedside with pacer pads on * Cardiology consult in a.m. * We will give atropine if necessary Diarrhea, vomiting, and abdominal pain: There is no evidence of vomiting in ED. Patient denies any nausea. He states that he has 4-5 watery bowel movements a day. None in ED. He does have some tenderness to palpation in his lower quadrants. * Ova and parasites * Monitor fluids, replete electrolytes * Regular diet * Bentyl 10 mg by mouth 3 times a day * PPI Seizure disorder: The medication list the patient provided is in conflict with the medication list we looked up in [place]. We will need to verify his current antiseizure regimen with the pharmacy in a.m. Patient denies any recent seizures. Currently we have started him on the following below. * Topamax 200 mg by mouth twice a day * Topamax 50 mg by mouth every afternoon * Keppra 1500 mg by mouth twice a day * Gabapentin 1200 mg by mouth 3 times a day * Depakote 250 mg by mouth 3 times a day * Con't seizure precautions Full code Chemical DVT prophylaxis Regular diet As Ranked By This Provider Problem List: 1. Abdominal pain 2. Seizure 3. Diarrhea 4. Bradycardia Core Measures/Miscellaneous Acute Coronary Syndrome ACS Diagnosis: No Cerebrovascular Accident CVA/TIA Diagnosis: No Congestive Heart Failure CHF Diagnosis: No Venous Thromboembolism VTE Risk Factors: Age > 40 [facility] prophylaxis d/t: No contraindications No VTE Pharm Prophylaxis d/t: No contraindications VTE Diagnosis: No VTE Type: NONE VTE Confirmed by (Test): NONE Severe Sepsis Severe Sepsis Present: No Septic Shock Septic Shock Present: No Miscellaneous Documentation Attending Case Discussed With: Roxann HIGGINS MD Primary Care Physician: ANA MARÍA ROBLES MD Patient sees these Specialists unknown Level of Patient Care: Telemetry Consults Needed: Consulting Specialty: Cardiology GARETH STYLES MD,ANGELA 09/11/16 2302: Resident Review Statement Resident Statement: examined this patient, discussed with internal medicine specialist, reviewed EMR data (avail) Other Findings: 51-year-old man with past medical history significant for epilepsy, cachexia, depression, chronic back pain, and smoking came to emergency department with chief complaint of a nausea vomiting, watery diarrhea and not feeling good for the last 1 week. According to him he had 4-5 watery bowel movements and his stomach was hurting. Vitals in emergency department, patient afebrile, bradycardia, systolic blood pressure 110-116 and diastolic 62-64, oxygen saturation of 100% on room air. On examination patient was sleeping and drowsy alert and oriented to time person and place. Mild abdominal tenderness on examination, audible bowel sounds, overall clear lungs, S1 and S2 audible without any murmurs, no bilateral lower extremity edema. Grossly intact neurological examination. Healed scar in the lower back. Significant labs include anemia, tox screen positive for opioids. She was admitted on telemetry so for the management of following problems Bradycardia Causes of bradycardia is unclear. Patient does not have any block on EKG. CT is 156 and sinus bradycardia on EKG. QTC of 377. Patient takes multiple medications for epilepsy and depression. 2 medications that can be possible culprits for bradycardia are tizanidine and amitriptyline. We will hold these 2 medications for now. We will also get Depakote, Keppra and TCA levels in order to check patient's complaints or overdose. Patient actively denies any suicidal or homicidal ideations for now. Patient is hemodynamically stable for now. Currently asymptomatic. We will rule out any acute cardiac event. We will also rule out the possibility of thyroid abnormalities or any infectious disease. If required will give 0.5 mg of atropine. Temporary pacemaker at bedside. Cardiology consult. Diarrhea Patient is afebrile and no evidence of recent fever. Patient did have some mild tenderness in the abdomen and complained of recent watery stools. Possibility of opioid withdrawl should be kept in mind. We will get stool ova and parasites to rule out infection. We will replete electrolytes and fluid as needed. Patient is on subcutaneous heparin for DVT prophylaxis Patient is full code Patient is on regular diet Patient is a pain pathway Patient is here as an observation RONALDO CHAVEZ,DWAINE Hess 09/12/16 1344: General Information and HPI Allergies/Medications Home Med list Amitriptyline HCl 25 MG TABLET 1 TAB PO QPM psychiatric/sleep Dicyclomine Hydrochloride (Bentyl) 10 MG CAPSULE 1 CAP PO TID ABDOMINAL DISCOMFORT Divalproex Sodium (Divalproex Sodium ER) 250 MG TAB.ER.24H 1 TAB PO TID SEIZURES (Reported) Gabapentin 400 MG CAPSULE 3 CAP PO TID SEIZURES (Reported) Levetiracetam (Keppra) 750 MG TABLET 1,500 MG PO BID SEIZURES (Reported) Loperamide HCl (Imodium A-D) 2 MG CAPSULE 1 TAB PO BID PRN DIARRHEA Magnesium Oxide 400 MG TABLET 1 TAB PO BID SUPPLEMENT (Reported) Melatonin 3 MG TABLET 2 TAB PO QHS SLEEP (Reported) Morphine Sulfate 15 MG TABLET 1 TAB PO BID PRN PAIN (Reported) Pantoprazole Sodium 40 MG TABLET.DR 1 TAB PO DAILY GI (Reported) Tizanidine HCl 4 MG TABLET 1 TAB PO QPM MUSCLE RELAXER (Reported) Topiramate (Topamax) 100 MG TABLET 0.5 TAB PO QPM SEIZURES (Reported) Topiramate (Topamax) 100 MG TABLET 2 TAB PO QPM SEIZURES (Reported) Attending MD Review Statement Attending Statement Attending MD Statement: examined this patient, discuss w/resident/PA/SANDWICH COUNTER ATTENDANT, agreed w/resident/PA/SANDWICH COUNTER ATTENDANT, discussed with family, reviewed EMR data (avail), discussed with nursing, discussed with case mgmt, reviewed images, amended to note Attending Assessment/Plan: Addendum: I have seen and examined this patient and agree with the plan as outlined above. Plan: - Keep on telemetry for now to monitor rate and rhythm - Await all blood work including Lyme titre - Echocardiogram pending. - Further plans after the above.
--- NOTE | 2016-09-11 23:06 | NUR ---
REPORT GIVEN TO SHANTELL MCGRATH
[2016-09-12 00:33] VITALS: BP 130/80
--- NOTE | 2016-09-12 05:21 | PN- Housestaff ---
Subjective Follow-up For: Bradycardia Complaints: no complaints Tele-Events Since Last Visit: Sinus Bradycardia HR 28-50, Asymptomatic Subjective: Patient hd no complains over night and slept well. Review of Systems Constitutional: Denies: chills, fever. EENTM: Denies: visual changes. Cardiovascular: Denies: chest pain, palpitations. Respiratory: Denies: cough, short of breath. Gastrointestinal: Denies: abdominal pain, nausea, vomiting. Genitourinary: Denies: dysuria. Musculoskeletal: Denies: back pain. Objective Last 24 Hrs of Vital Signs/I&O Vital Signs Date Time Temp Pulse Resp B/P B/P Pulse O2 O2 Flow FiO2 Mean Ox Delivery Rate 09/12 0033 96.6 36 20 130/80 99 Room Air 09/11 2301 97.2 47 16 116/64 100 Room Air 09/11 2111 97.0 44 15 118/62 100 Room Air Room Air 09/11 2031 97.9 39 15 110/60 100 Room Air Room Air 09/11 1914 98.1 34 15 118/62 99 Room Air Room Air 09/11 1838 35 15 110/70 99 Room Air Room Air 09/11 1804 44 15 104/62 100 Room Air Room Air 09/11 1747 97.4 36 15 102/64 100 Room Air Room Air 09/11 1743 Room Air Room Air 09/11 1741 97.7 09/11 1504 97.7 54 18 97/57 100 Room Air Intake & Output 09/12 0800 09/12 0000 09/11 1600 Intake Total 1000 Output Total Balance 1000 Intake, IV 1000 Intake, Oral 0 Patient 130 lb 130 lb Weight Weight Reported by Patient Measurement Method Physical Exam General Appearance: Alert, Oriented X3, Cooperative, No Acute Distress HEENT: Atraumatic Neck: No JVD Cardiovascular: Regular Rate, Normal S1, Normal S2 Lungs: Clear to Auscultation Abdomen: Normal Bowel Sounds, Soft Neurological: Normal Speech, Normal Tone Extremities: No Edema Current Medications: Current Medications Sig/Onur Start time Last Medication Dose Route Stop Time Status Admin Acetaminophen 0 .STK-MED ONE 09/11 1741 DC PO Acetaminophen 650 MG ONCE ONE 09/11 1714 DC 09/11 PO 09/12 1715 174 Dicyclomine HCl 10 MG TID 09/12 1000 AC PO Dicyclomine HCl 20 MG ONCE ONE 09/11 1715 DC 09/11 PO 09/11 1716 1741 Divalproex Sodium 250 MG TID 09/11 235 09/12 PO 0051 Gabapentin 1,200 MG TID 09/12 1000 AC PO Heparin Sodium 5,000 UNIT Q8 09/12 0045 09/12 (Porcine) SC 0051 Levetiracetam 1,500 MG BID 09/12 1000 AC PO Lidocaine 1 PAT Q24H PRN 09/12 0030 AC EXT Magnesium Oxide 400 MG BID 09/11 2358 09/12 PO 0051 Morphine Sulfate 0.5 MG Q4-6 PRN PRN 09/12 0030 AC IV Morphine Sulfate 7.5 MG DAILY PRN 09/12 0030 AC PO Naloxone HCl 0.4 MG ONCE ONE 09/11 2044 DC 09/11 IV 09/11 Naloxone HCl 0 .STK-MED ONE 09/12 2043 DC .ROUTE Omeprazole 40 MG DAILY AC 09/11 2358 09/12 PO 0051 Sodium Chloride 1,000 ML BOLUS ONE 09/11 1830 IA 09/11 IV 09/11 1929 1829 Sodium Chloride 1,000 ML BOLUS ONE 09/11 1700 IA 09/11 IV 09/11 1759 1722 Topiramate 50 MG QPM 09/12 2200 AC PO Topiramate 200 MG BID 09/11 2358 09/12 PO 0051 Last 24 Hrs of Lab/Michael Results Last 24 Hrs of Labs/Mics: Laboratory Tests 09/12/16 0105: Troponin I < 0.01 09/11/16 1820: Urine Opiates Screen > 4000.00 H, Methadone Screen 43, Barbiturate Screen 66, Ur Phencyclidine Scrn < 6.00, Amphetamines Screen < 100, U Benzodiazepines Scrn < 85, Urine Cocaine Screen < 50, Urine Cannabis Screen < 5.00, Urine Color YEL, Urine Clarity CLEAR, Urine pH 6.0, Ur Specific [place] 1.020, Urine Protein NEG, Urine Ketones TRACE H, Urine Nitrite NEG, Urine Bilirubin NEG, Urine Urobilinogen 1.0, Ur Leukocyte Esterase NEG, Ur Microscopic EXAM NOT REQUIRED, Urine Hemoglobin NEG, Urine Glucose NEG 09/11/16 1705: Anion Gap 8, Estimated GFR > 60, BUN/Creatinine Ratio 24.3, Glucose 81, Calcium 8.7, Total Bilirubin 0.4, AST 18, ALT 27, Alkaline Phosphatase 54, Troponin I < 0.01, Total Protein 6.3, Albumin 3.1 L, Globulin 3.2, Albumin/Globulin Ratio 1.0 L, Amylase 104, Lipase 150, TSH 1.530, Thyroxine (T4) 6.1, CBC w Diff MAN DIFF ORDERED, RBC 3.7 L, MCV 91.4, MCH 30.8, RDW 13.6, MPV 8.3, Segmented Neutrophils 28 L, Band Neutrophils 1, Lymphocytes 63 H, Monocytes 4, Eosinophils 4, Platelet Estimate ADEQUATE, Normocytic RBCs VERIFIED, Normochromic RBCs VERIFIED, PUBS MCHC 33.7, Lyme Disease Antibody Pending, Valproic Acid 85.3 Microbiology 09/12 10 STOOL: Cryptosporidium Antigen - COLB 09/12 10 STOOL: Giardia Antigen (MICHAEL) - COLB Lines/Diet/Fluids Fluids/Infusions: none Lines: peripheral lines Restraints: none Assessment/Plan Assessment: 51-year-old man with past medical history significant for epilepsy, cachexia, depression, chronic back pain, and smoking came to emergency department with chief complaint of a nausea vomiting, watery diarrhea and not feeling good for the last 1 week. According to him he had 4-5 watery bowel movements and his stomach was hurting. Bradycardia Causes of bradycardia is unclear Patient takes multiple medications for epilepsy and depression. 2 medications that can be possible culprits for bradycardia are tizanidine and amitriptyline. We will hold these 2 medications for now. Currently asymptomatic. Ruled out any acute cardiac event Temporary pacemaker at bedside Cardiology consult. Seizure/Epilepsy We will also get Depakote, Keppra and TCA levels in order to check patient's complaints or overdose. Patient actively denies any suicidal or homicidal ideations for now. Confirm medications as dosage on patiet's list might not be updated and there is a different strength on recently reconciled medications. Diarrhea Patient is afebrile and no evidence of recent fever Patient did have some mild tenderness in the abdomen and complained of recent watery stools Possibility of opioid withdrawl should be kept in mind We will get stool ova and parasites to rule out infection Patient is on subcutaneous heparin for DVT prophylaxis Patient is full code Patient is on regular diet Patient is a pain pathway Patient is here as an observation Problem List: 1. Seizure 2. Bradycardia Pain Ratin Pain Location: legs Pain Goal: Pain 4 or less Pain Plan: Pain management Tomorrow's Labs & Rationales: None DVT/Prophylaxis: pharmacological Consulting Request: Consulting Specialty: Cardiology
[2016-09-12 08:00] VITALS: BP 100/70
--- NOTE | 2016-09-12 09:41 | NUR ---
Physical therapy: Per nursing staff, patient is independently ambulating without device. No skilled PT needs at this time. PT will not be following patient. Please re-consult if mobility status declines. Thank you.
[2016-09-12 12:00] VITALS: BP 106/68
[2016-09-12 17:37] VITALS: BP 90/60
[2016-09-13 01:05] VITALS: BP 96/72
[2016-09-13 08:05] VITALS: BP 106/67
--- NOTE | 2016-09-13 09:26 | PN- Housestaff ---
YASH CHAVEZ,DANIAL 09/13/16 0926: Subjective Follow-up For: Bradycardia Tele-Events Since Last Visit: NSR Subjective: Patient seen and examined. Resting comfortably in bed with no complaints. Denies any headache, chest discomfort, palpitations, dypsnea, lightheadedness, dizziness, abdominal pain, n/v/c/d.No events reported overnight. Review of Systems Constitutional: Reports: see HPI. Objective Last 24 Hrs of Vital Signs/I&O Vital Signs Date Time Temp Pulse Resp B/P B/P Pulse O2 O2 Flow FiO2 Mean Ox Delivery Rate 09/13 0805 99.0 48 16 106/67 98 Room Air 09/13 0105 97.9 58 20 96/72 98 Room Air 09/12 1737 97.5 58 20 90/60 97 Physical Exam General Appearance: Alert, Oriented X3, Cooperative, No Acute Distress Current Medications: Current Medications Sig/Onur Start time Last Medication Dose Route Stop Time Status Admin Dicyclomine HCl 10 MG TID 09/12 1000 AC 09/13 PO 0940 Divalproex Sodium 250 MG TID 09/11 2350 AC 09/13 PO 0939 Gabapentin 1,200 MG TID 09/12 1000 AC 09/13 PO 0941 Heparin Sodium 5,000 UNIT Q8 09/12 0045 09/13 (Porcine) SC 0631 Levetiracetam 1,500 MG BID 09/12 1000 AC 09/13 PO 0943 Lidocaine 1 PAT Q24H PRN 09/12 0030 AC 09/12 EXT 1056 Magnesium Oxide 400 MG BID 09/11 2359 AC 09/13 PO 0942 Morphine Sulfate 0.5 MG Q4-6 PRN PRN 09/12 0030 AC IV Morphine Sulfate 7.5 MG DAILY PRN 09/12 0030 AC 09/12 PO 1754 Omeprazole 40 MG DAILY AC 09/11 2359 AC 09/13 PO 0630 Topiramate 50 MG QPM 09/12 2200 AC PO Topiramate 200 MG BID 09/11 2359 AC 09/13 PO 0942 Last 24 Hrs of Lab/Michael Results Last 24 Hrs of Labs/Mics: Laboratory Tests 09/13/16 1213: Lyme Disease Antibody Pending Assessment/Plan Assessment: 51-year-old man with past medical history significant for epilepsy, cachexia, depression, chronic back pain, and smoking came to emergency department with chief complaint of a nausea vomiting, watery diarrhea and not feeling good for the last 1 week. According to him he had 4-5 watery bowel movements and his stomach was hurting. Bradycardia Causes of bradycardia is unclear. Patient takes multiple medications for epilepsy and depression. 2 medications that can be possible culprits for bradycardia are tizanidine and amitriptyline. We will hold these 2 medications for now. Of note, per the home nurse, patient has recently started taking Haldol which had to be discontinued due to adverse reactions including delirium. Patient is currently asymptomatic with HR normalized to an acceptable range. * Echocardiogram - to be followed outpatient * Temporary pacemaker at bedside * Appreciate cardio recs * Patient may be discharged after echo per Dr. Higgins * Follow Lyme titers outpatient Seizure/Epilepsy Patient actively denies any suicidal or homicidal ideations for now. * Cont home meds Diarrhea Patient is afebrile and no evidence of recent fever Patient did have some mild tenderness in the abdomen and complained of recent watery stools Possibility of opioid withdrawl should be kept in mind * Follow stool ova and parasites to rule out infection Patient is on subcutaneous heparin for DVT prophylaxis Patient is full code Patient is on regular diet Patient is a pain pathway Patient is here as an observation Problem List: 1. Bradycardia Pain Ratin Pain Location: 0 Pain Goal: Remain pain free Pain Plan: Mild pathway Tomorrow's Labs & Rationales: None Consulting Request: Consulting Specialty: Cardiology DWAINE HIGGINS MD 09/13/16 1332: Attending MD Review Statement Attending Statement Attending MD Statement: examined this patient, discuss w/resident/PA/BLOCK PILER, agreed w/resident/PA/BLOCK PILER, discussed with family, reviewed EMR data (avail), discussed with nursing, discussed with case mgmt, reviewed images, amended to note Attending Assessment/Plan: Attending addendum: -The patient was seen and examined by me. I agree with the plan as outlined above. The patient has remained entirely syndromatic since admission. In addition, over the last 24 hours, the sinus bradycardia has returned to baseline. At the present time the patient remains in sinus rhythm with a heart rate of 55-65/m. I suspect, at the present time, that these episodes of bradycardia were somehow related to the patient's medications, pain medications, Haldol, etc. The plan at the present time is to obtain an echo cardiac gram today. If the echo cardiac exam is normal, the patient will be discharged home on his current medications. The patient also has a Lyme titer pending. This will be reviewed and the patient will follow-up with me as an outpatient. At some point, the patient will have a 24-hour Holter monitor performed as an outpatient as well to rule out the possibility of intermittent bradycardia arrhythmias.
--- NOTE | 2016-09-13 12:06 | Patient Discharge Instructions ---
Discharge Instructions General Discharge Information You were seen/treated for: Bradycardia Special Instructions: Please follow up with rib matcher and fitter Dr. Espinosa within 1 week of discharge. You may be able to review echocardiogram and lab results at that time. Diet Continue normal diet: Yes Activity Full Activity/No Limits: Yes (as tolerated) Acute Coronary Syndrome Inclusion Criteria At DC or during hospital stay patient has or had the following: ACS DIAGNOSIS No Discharge Core Measures Meds if any: Prescribed or Continued at Discharge Meds if any: NOT Prescribed or Continued at Discharge Congestive Heart Failure Inclusion Criteria At DC or during hospital stay patient has or had the following: CHF DIAGNOSIS No Discharge Core Measures Meds if any: Prescribed or Continued at Discharge Meds if any: NOT Prescribed or Continued at Discharge Cerebrovascular accident Inclusion Criteria At DC or during hospital stay patient has or had the following: CVA/TIA Diagnosis No Discharge Core Measures Meds if any: Prescribed or Continued at Discharge Meds if any: NOT Prescribed or Continued at Discharge Venous thromboembolism Inclusion Criteria VTE Diagnosis No VTE Type NONE VTE Confirmed by (Test) NONE Discharge Core Measures - Per Current guidelines, there needs to be overlap - treatment for the first 5 days of Warfarin therapy. - If discharged on Warfarin prior to 5 days of - overlap therapy, the patient will need to be - assessed for post discharge needs including - *Post discharge parental anticoagulation - *Warfarin and/or parental anticoagulation education - *Follow up date to check INR post discharge At least 5 days overlap therapy as Inpatient No Meds if any: Prescribed or Continued at Discharge Note: Overlap Therapy is Warfarin and Anticoagulant Meds if any: NOT Prescribed or Continued at Discharge
[2016-09-13 15:48] VITALS: BP 108/70
--- NOTE | 2016-09-13 16:04 | NUR ---
PT DISCHARGE ORDER IN PLACE. THIS RN NOTICED RESULTS FOR LYME TITRE AND ECHOCARDIOGRAM ARE STILL PENDING AND QUESTIONED WHITE SHOE EXAMINER DANIAL BERRIOS. WHITE SHOE EXAMINER YASH INFORMED THIS RN THAT DR HIGGINS VERBALLY TOLD HIM THAT THE PATIENT CAN BE DISCHARGED AT THIS TIME.
--- NOTE | 2016-09-13 17:01 | ECHOCARDIOGRAM REPORT ---
KARLA PATTON Age: 51 : 1965 Gender: M Exam Date: 09/13/2016 13:23 Exam Location: [place] Ht (in): 72 Wt (lb): 130 BSA: 1.71 BP: 106 / 67 Ordering Physician: ALPA DE LA ROSA MD Referring Physician: Tal Espinosa MD Technologist: Yadira Carrillo [facility] Room Number: 172 Indications: ARRHYTHMIAS Rhythm: Sinus Technical Quality: Good FINDINGS Left Ventricle Normal global left ventricular size, wall thickness, systolic function with no obvious regional wall motion abnormalities. Normal left ventricular ejection fraction estimated at 55-60%. Right Ventricle Normal right ventricular size and function. Right Atrium Normal right atrial size. Left Atrium Normal left atrial size. Mitral Valve Structurally normal mitral valve. Trace mitral regurgitation. Aortic Valve Trileaflet aortic valve. Focal thickening of the aortic valve cusps. No aortic stenosis. No aortic regurgitation. Tricuspid Valve Tricuspid valve not well visualized, grossly normal. Trace tricuspid regurgitation. Pulmonic Valve Pulmonic valve not well visualized, grossly normal. Pericardium No pericardial effusion. Great Vessels Normal size aortic root and proximal ascending aorta. CONCLUSIONS 1. Minimal aortic sclerosis is present with no valvular stenosis or insufficiency. 2. The mitral valve is anatomically normal. Minimal mitral insufficiency is present. 3. There is no pericardial fluid present. 4. The left ventricular chamber size and systolic function appear normal with no resting wall motion abnormalities. 5. Minimal tricuspid insufficiency is present with no evidence of pulmonary hypertension. Tal Espinosa M.D. (Electronically Signed) Final Date: 13 Sep 2016 17:00 MEASUREMENTS (Male / Female) Normal Values 2D ECHO LV Diastolic Diameter PLAX 4.0 cm 4.2 - 5.9 / 3.9 - 5.3 cm LV Systolic Diameter PLAX 2.5 cm 2.1 - 4.0 cm LV Fractional Shortening PLAX 37.5 % 25 - 46 % LV Ejection Fraction 2D Teich 68.1 % IVS Diastolic Thickness 0.9 cm LVPW Diastolic Thickness 0.9 cm LV Relative Wall Thickness 0.5 RV Internal Dim ED PLAX 3.1 cm 1.9 - 3.8 cm LVOT Diameter 2.2 cm Aortic Root Diameter 3.4 cm LA Systolic Diameter LX 2.8 cm 3.0 - 4.0 / 2.7 - 3.8 cm LA Volume 25.0 cm 18 - 58 / 22 - 52 cm DOPPLER AV Peak Velocity 92.3 cm/s AV Peak Gradient 3.4 mmHg AV Mean Velocity 64.6 cm/s AV Mean Gradient 2.0 mmHg AV Velocity Time Integral 15.3 cm LVOT Peak Velocity 76.8 cm/s LVOT Peak Gradient 2.4 mmHg LVOT Mean Velocity 50.4 cm/s LVOT Mean Gradient 1.0 mmHg LVOT Velocity Time Integral 15.3 cm LVOT Stroke Volume 58.2 cm AV Area Cont Eq vti 3.8 cm AV Area Cont Eq pk 3.2 cm MV Peak Velocity 57.4 cm/s MV Peak Gradient 1.3 mmHg MV Mean Velocity 38.8 cm/s MV Mean Gradient 1.0 mmHg Mitral E Point Velocity 44.2 cm/s Mitral A Point Velocity 45.2 cm/s Mitral E to A Ratio 1.0 MV PHT Velocity 57.4 cm/s MV Deceleration [place] 235.0 cm/s MV Pressure Half Time 73.3 ms MV Area PHT 3.0 cm MV Deceleration Time 412.0 ms TR Peak Velocity 185.0 cm/s TR Peak Gradient 13.7 mmHg Right Atrial Pressure 5.0 mmHg Pulmonary Artery Systolic Pressu 18.7 mmHg Right Ventricular Systolic Press 18.7 mmHg PV Peak Velocity 96.5 cm/s PV Peak Gradient 3.7 mmHg PV Mean Velocity 62.9 cm/s PV Mean Gradient 2.0 mmHg PV Velocity Time Integral 16.5 cm LV E' Lateral Velocity 5.6 cm/s Mitral E to LV E' Lateral Ratio 7.9 LV E' Septal Velocity 5.3 cm/s Mitral E to LV E' Septal Ratio 8.4
--- NOTE | 2016-09-13 17:09 | NUR ---
UPON DISCHARGE PT EDUCATED ON NECESSITY OF DRINKING WATER IN LEIU OF DRINKING SOLELY CLAUDIA DONUTS COFFEE AND COKE OR PEPSI THROUGHOUT THE DAY TO EASE SOME OF HIS ABDOMINAL PAIN.
== END 2016-09-13 18:25 ==
LOC: ERH 14:58 → ERHI 22:23 → ENRESERV 22:37 → 1NO 09-12 00:09 → ENPENDDIS 09-13 14:55 → 1NO 09-13 18:25
PROVIDERS: Physician Assistant; ADMIT Specialist
DX: R00.1 Bradycardia, unspecified (principal); R19.7 Diarrhea, unspecified; F17.200 Nicotine dependence, unspecified, uncomplicated; K21.9 Gastro-esophageal reflux disease without esophagitis; F41.9 Anxiety disorder, unspecified; G40.909 Epilepsy, unspecified, not intractable, without status epilepticus; R10.9 Unspecified abdominal pain; F32.9 Major depressive disorder, single episode, unspecified; M54.9 Dorsalgia, unspecified
CPT/HCPCS: 80152; 80160; 80166; 80174; 80182; 80324; 86618; 80307; 80338; 81003; 87328; 87329; 93005; 93010; 93306; 96361; 96372; 96374; G0378; G0480; J0461; J1644; J2310; J3490

== ENCOUNTER 2017-06-09 15:00 | Inpatient (IN) | payer OTHER ==
[~2017-06-09] VITALS: Ht 172.7 cm; Wt 64.0 kg
[~2017-06-09 15:00] MED LIST changes: +HALOPERIDOL0.5 M1; +IMODIUM A-D2 M2 PO
--- NOTE | 2017-06-09 15:09 | ED CARDIAC/CP/PALPITATIONS ---
History of Present Illness General Chief Complaint: Chest Pain Stated Complaint: BIBA CP Source: patient, EMS Exam Limitations: clinical condition Vital Signs & Intake/Output Vital Signs & Intake/Output Vital Signs Date Time Temp Pulse Resp B/P B/P Pulse O2 O2 Flow FiO2 Mean Ox Delivery Rate 06/13 1447 98.0 54 16 100/66 98 Room Air 06/13 0800 Room Air 06/13 0643 98.2 42 12 110/64 96 Room Air 06/12 2147 97.6 41 16 110/70 98 ED Intake and Output 06/13 0000 06/12 1200 Intake Total 1320 220 Output Total 1825 750 Balance -505 -530 Intake, IV 240 220 Intake, Oral 1080 Number 3 2 Bowel Movements Output, Urine 1825 750 Allergies Coded Allergies: Sulfa (Sulfonamide Antibiotics) (Intermediate, HIVES 06/09/17) acetaminophen (From VICODIN) (Intermediate, HIVES 06/09/17) hydrocodone (From VICODIN) (Intermediate, HIVES 06/09/17) tramadol (Intermediate, HIVES 06/09/17) aripiprazole (Intermediate, RASH PER PT. 06/09/17) Triage Nurses Notes Reviewed? yes Onset: Abrupt Duration: day(s): (1), constant Timing: recent history Quality/Severity: moderate, severe Location: [facility] Radiation: no radiation Activities at Onset: none Prior Chest Pain/Card Workup: no prior chest pain Associated Symptoms: DENIES HPI: 51 Year old male past medical history significant for Neurostimulator in lumbar spine, seizure disorder GERD, COPD presents brought in by ambulance after he states he woke from a nap just prior to arrival complaining of left upper quadrant abdominal pain. On arrival patient is febrile. He denies nausea vomiting. EMS reports patient complained of left-sided chest wall pain which she denies to myself. No headache cough congestion. He is not taken anything for his symptoms. He states he was in his normal state of health this morning. He is been compliant with taking all his medications including Depakote for seizures (Reece Diaz) Reconcile Medications Amitriptyline HCl 25 MG TABLET 1 TAB PO QPM psychiatric/sleep Divalproex Sodium (Divalproex Sodium ER) 250 MG TAB.ER.24H 3 TAB PO TID seizures (Reported) Gabapentin 400 MG CAPSULE 3 CAP PO TID SEIZURES (Reported) Levetiracetam (Keppra) 750 MG TABLET 1,500 MG PO BID SEIZURES (Reported) Magnesium Oxide 400 MG TABLET 1 TAB PO BID SUPPLEMENT (Reported) Melatonin 3 MG TABLET 2 TAB PO QHS SLEEP (Reported) Morphine Sulfate 15 MG TABLET 1 TAB PO BID PRN PAIN (Reported) Pantoprazole Sodium 40 MG TABLET.DR 1 TAB PO DAILY GI (Reported) Topiramate (Topamax) 50 MG TABLET 2 TAB PO QAM seizure (Reported) Topiramate (Topamax) 50 MG TABLET 3 TAB PO QPM seizure (Reported) (John CHAVEZ,Levy White) Past History Travel History Traveled to [place] past 21 day No Medical History Any Pertinent Medical History? see below for history Neurological: seizure EENT: NONE Cardiovascular: NONE Respiratory: COPD Gastrointestinal: GERD, PANCREATIT, HERNIA Hepatic: NONE Renal: NONE Musculoskeletal: chronic back pain, osteoarthritis, BACK PAIN STIMULATOR Psychiatric: anxiety, depression Endocrine: NONE Blood Disorders: NONE Cancer(s): NONE CUSTOMER RELATIONS CONSULTANT/Reproductive: NONE History of MRSA: No History of VRE: No History of CDIFF: No Surgical History Surgical History: hernia repair-inguinal (2013) Psychosocial History Who do you live with Patient/Self What is your primary language Singaporean Tobacco Use: Current Daily Use Daily Tobacco Use Amount/Type: => 5 Cigarettes daily ETOH Use: denies use Illicit Drug Use: denies illicit drug use Family History Hx Contributory? No (Reece Diaz) Review of Systems Review of Systems Constitutional: Reports: see HPI. Comments ros limited unable to assess secnodary to pt condition (Reece Diaz) Physical Exam Physical Exam General Appearance: lethargic Cardiovascular: tachycardic Comments: Well-developed well-nourished person in no acute distress HEENT: Normal EENT exam; PERRL, EOMI. HEAD is atraumatic. moist mucous membranes. Neck: Supple, no nuchal rigidity normal range of motion Back:. Full range of motion Cardiovascular: Tachycardic, regular rhythm no murmurs rub Respiratory: Chest nontender.There were no bony deformities, no asymmetry. No respiratory distress. Patient speaking in full complete sentences. Breath sounds clear to auscultation bilaterally: NO W/R/R Abdomen: Soft, nontender nondistended, no appreciable organomegaly. Normal bowel sounds. No rebound/guarding, No ascites. Extremity: No edema, full range of motion of extremities, normal and equal pulses bilaterally, 5 out of 5 strength noted to bilateral upper and lower extremities Neuro: LETHARGIC, AROUSABLE, oriented x3, motor sensory normal, cranial nerves II through XII grossly intact. There were no obvious focal neurologic abnormalities. Skin: No appreciable rash on exposed skin, skin is warm and dry. Psych: Mood and affect is normal, memory and judgment is normal. Core Measures ACS in differential dx? Yes CVA/TIA Diagnosis No Sepsis Present: Yes Sepsis Focused Exam Completed? Yes (Sudhakar AVILA,Reece) Progress Differential Diagnosis: AMI, aortic dissection, atrial fibrillation, CHF/pulm edema, intracranial hemorrhage, myocarditis, pancreatitis, pericarditis, pneumonia, sepsis, unstable angina, V-fib/V-Tach, meningitis, dt.s etoh withdrawal, intoxicatino, encephalitis Plan of Care: Orders Procedure Date/time Status MAGNESIUM 06/14 0600 Active CBC WITHOUT DIFFERENTIAL 06/14 0600 Active BASIC ELECTROLYTES PLUS BUN&CR 06/14 0600 Active C.DIFFICILE 06/13 1147 Active Turn and Reposition 06/13 1026 Active Skin Integrity Protocol 06/13 1026 Active MISSING MEDICATION FORM 06/13 UNK Active Current Medications Sig/Onur Start time Last Medication Dose Stop Time Status Admin Potassium Chloride 40 MEQ ONCE ONE 06/13 2000 UNVr (K-Dur) 06/13 2000 Potassium Chloride 40 MEQ ONCE ONE 06/13 1145 CAN (Klor) 06/13 1146 Chlorhexidine 15 ML DAILY 06/12 1400 AC 06/13 Gluconate 0854 (Peridex 0.12% Oral Rinse) Vitamin A/Vitamin D 1 SARWAT BID 06/12 1356 AC 06/13 (A+D Original) 0900 Zinc Oxide 1 SARWAT BID 06/12 1356 AC 06/13 (Desitin) 0906 Divalproex Sodium 750 MG BID 06/11 1000 AC 06/13 (Depakote ER) 0851 Topiramate 100 MG QAM 06/11 1000 AC 06/13 (Topamax) 0852 Levetiracetam 1,500 MG BID 06/10 2200 AC 06/13 (Keppra) 0852 Topiramate 150 MG QPM 06/10 2200 AC 06/12 (Topamax) 2126 Gabapentin 800 MG TID 06/10 1600 AC 06/13 (Neurontin) 1608 Guaifenesin 10 ML Q6P PRN 06/095 AC 06/13 (Robitussin) 0852 Pantoprazole Sodium 40 MG DAILY 06/09 1933 AC 06/13 (Protonix) 0852 Acetaminophen 650 MG Q6P PRN 06/09 1929 AC 06/12 (Tylenol) 2130 Acetaminophen 1,000 MG Q6P PRN 06/09 1929 AC 06/13 (Ofirmev) 172 Nicotine 21 MG DAILY 06/09 1929 AC 06/13 (Nicoderm) 0853 Laboratory Tests 06/13/17 0638: Anion Gap 12, Estimated GFR > 60, BUN/Creatinine Ratio 15.0, Phosphorus 3.5, Magnesium 1.7, CBC w Diff NO MAN DIFF REQ, RBC 4.23 L, MCV 90.1, MCH 30.5, MCHC 33.8, RDW 13.8, MPV 8.6, Gran % 58.9, Lymphocytes % 30.7, Monocytes % 9.2, Eosinophils % 0.9, Basophils % 0.3, Absolute Granulocytes 5.4, Absolute Lymphocytes 2.8, Absolute Monocytes 0.9 H, Absolute Eosinophils 0.1, Absolute Basophils 0 Microbiology 06/13 1500 STOOL: Clostridium difficile Toxin A & B - RECD Patient is lethargic, arousable to verbal stimuli Dr. Lopez at bedside Ativan 2 mg IV ordered CAT scans ordered Valdez catheter placed as patient became more lethargic after being medicated with Ativan. 0 patient given Narcan became more arousable, we will hold on the lumbar puncture as patient is more awake altered mental status secondary most likely to opiate intoxication Rocephin and azithromycin ordered for CAT scan findings of pneumonia fluids running Dr. Lopez is aware and agrees with plan- Diagnostic Imaging: Viewed by Me: Radiology Read, CT Scan. Discussed w/RAD: Radiology Read, CT Scan. Radiology Impression: PATIENT: KARLA PATTON PRESENT AGE: 51 PATIENT ACCOUNT NO: [id number] : 67 LOCATION: [facility] ORDERING PHYSICIAN: Reece AVILA SERVICE DATE: 06/09/176798 EXAM TYPE: CAT - CT HEAD WO IV CONTRAST EXAMINATION: CT HEAD WITHOUT CONTRAST CLINICAL INFORMATION: Altered mental status. COMPARISON: CT head 08/27/2016 TECHNIQUE: Contiguous axial imaging was performed from the skull base to vertex without intravenous administration of contrast. DLP: 691.68 mGy-cm FINDINGS: There is no evidence of acute intracranial hemorrhage or territorial infarction. No abnormal mass effect or midline shift is seen. Coon to white matter differentiation is well preserved. No extra-axial fluid collections are identified. The ventricles are normal in size. There is no abnormal attenuation within the brain parenchyma. The osseous structures and soft tissues are normal. The mastoid air cells and visualized portions of the paranasal sinuses are well aerated. IMPRESSION: No acute intracranial pathology. DICTATED BY: Jon Villarreal MD DATE/ TIME DICTATED:06/09/171620 LEAD MEDICAL TECHNOLOGIST:ARIELLE DATE/TIME TRANSCRIBED: 06/09/171620 CONFIDENTIAL, DO NOT COPY WITHOUT APPROPRIATE AUTHORIZATION. < Electronically signed in Other Vendor System> SIGNED BY: Jon Villarreal MD [id number], PATIENT: KARLA PATTON PRESENT AGE: 51 PATIENT ACCOUNT NO: [id number] : 67 LOCATION: [facility] ORDERING PHYSICIAN: Reece AVILA SERVICE DATE: 06/09/17 EXAM TYPE: CAT - CT ABD & PELVIS W/O IV CONTRAS; CT CHEST WO IV CONTRAST EXAMINATION: CT CHEST, ABDOMEN AND PELVIS WITHOUT CONTRAST CLINICAL INFORMATION: Left upper quadrant abdominal pain. Fever. Altered mental status. COMPARISON: CT abdomen pelvis 11/15/2015. Chest x-ray 02/03/2010. TECHNIQUE: Multidetector volumetric CT imaging of the chest, abdomen and pelvis was obtained without intravenous or oral contrast. Coronal and sagittal reformatted images are performed at the CT scanner. DLP: 459.35 mGy-cm. FINDINGS: Patient was imaged with arms at the side and hands crossed over the upper abdomen. This causes artifact. CT CHEST: Lungs: There is a small patchy airspace opacity at the dependent right lung. There is a larger infiltrate at the left lower lobe involving the anterior segment of left lower lobe. Mediastinum: The mediastinum is normal. Pleura: There is no pleural effusion. No pleural mass or thickening. Axilla: No lymphadenopathy. CT ABDOMEN AND PELVIS: Liver, Gallbladder, and Biliary Tree: Focal rounded hypodensity in the right lobe of liver segment 8 measuring 2 cm, axial image 51 (2). This was a hemangioma on the CAT scan of 11/15/2015 and is unchanged. The low-attenuating lesion in the left lobe of liver seen on the prior CT scan not apparent on today 's study due to lack of IV contrast and the artifact. No new lesions. No intrahepatic bile duct dilatation. The gallbladder is unremarkable with no evidence of radiopaque gallstones, gallbladder wall thickening, or obvious pericholecystic inflammatory changes. Pancreas: No acute change of the pancreas. No mass. No pancreatic duct dilatation. Spleen: Spleen normal in size and contour. No focal lesion. Adrenal Glands: Adrenal glands are normal in size. No focal mass. Kidneys and Ureters: The kidneys are normal in size, shape, and attenuation. No hydronephrosis, hydroureter, or calculi seen. No perinephric stranding. Bladder: Unremarkable. Gastrointestinal Tract: Large volume of stool throughout the colon. No acute change of the bowel. No bowel obstruction. No bowel wall thickening or edema. The appendix is normal. The small bowel loops are normal. Mesentery: No focal inflammation. No free fluid. No free air. Abdominal Wall: No significant hernia is appreciated. Lymph Nodes: Normal. Vascular: Scattered atherosclerotic vascular wall calcifications of the aorta and iliac vessels. No aneurysm. Pelvic Viscera: Unremarkable. Osseous Structures : No acute abnormality. Degenerative spondylosis of the spine with endplate spurring and facet joint arthrosis, most pronounced at lower lumbar spine. Neural stimulator probe in the central spinal canal; the catheter at the lower thoracic spine. The generator is over the right hip posteriorly in the subcutaneous tissue. IMPRESSION: 1. Left lower lobe infiltrate. Small infiltrate /atelectasis at the dependent right lung. No pleural effusion. 2. No acute abnormality CT scan abdomen and pelvis. DICTATED BY: Jon Villarreal MD DATE/TIME DICTATED:06/09/171622 LEAD MEDICAL TECHNOLOGIST:ARIELLE DATE/TIME TRANSCRIBED:1622 CONFIDENTIAL, DO NOT COPY WITHOUT APPROPRIATE AUTHORIZATION. < Electronically signed in Other Vendor System> SIGNED BY: Jon Villarreal MD 1646 Initial ED EKG: limited secondary to artifact from stimulator, stach at 100, no acut st seg changes Rhythm Strip: normal sinus rhythm (Reece Diaz) Departure Departure Time of Disposition: 1734 Disposition: STILL A PATIENT Condition: Stable Clinical Impression Primary Impression: Pneumonia Qualifiers: Pneumonia type: due to unspecified organism Laterality: left Lung location: unspecified part of lung Qualified Code: J18.9 - Pneumonia, unspecified organism Secondary Impressions: Cannabis abuse, Opiate abuse, continuous Referrals: Jaron Salmeron MD (PCP/Family) Departure Forms: Customer Survey General Discharge Information Admission Note Spoke With: Rubi CHAVEZ,Dafne Documentation of Exam: Documentation of any treatments & extenuating circumstances including Concerns Regarding Discharge (functional status, medication knowledge or non-compliance, living conditions, etc.) that warrant an admission rather than observation: IV FLUIDS, IV ABX, TREND LABS, PREMATURE DISCHARGE WOUDL BE MEDICALLY HARMFU. (Reece Diaz) PA/FUR SEWER Co-Sign Statement Statement: ED Attending supervision documentation- [X] I saw and evaluated the patient. I have also reviewed all the pertinent lab results and diagnostic results. I agree with the findings and the plan of care as documented in the PA's/FUR SEWER's documentation. [X] I have reviewed the ED Record and agree with the PA's/FUR SEWER's documentation. [] Additions or exceptions (if any) to the PAs/FUR SEWER's note and plan are summarized below: [Patient to be admitted for aspiration pneumonia. Patient will require IV antibiotics. Patient came in acutely confused however he did wake up after IV Narcan. Patient used toxin is positive for opiates.] (Levy Lopez MD) Critical Care Note Critical Care Note Critical Care Time: 30-74 min (Reece Diaz) ED Sepsis Exam Date of Focused Sepsis Exam: 06/09/17 Time of Focused Sepsis Exam: 1730 Sepsis Cardiac Exam: Tachycardia Sepsis Resp Exam: CTA Sepsis Cap Refill Exam: <2 Sec Sepsis Peripheral Pulse Exam: Normal Sepsis Peripheral Pulse Location: Radial Sepsis Skin Color Exam: Normal for Ethnicity Skin Temp/Moisture Exam: Warm/Dry (Reece Diaz) [] Additions or exceptions (if any) to the PAs/FUR SEWER's note and plan are summarized below: [Patient to be admitted for aspiration pneumonia. Patient will require IV antibiotics. Patient came in acutely confused however he did wake up after IV Narcan. Patient used toxin is positive for opiates.] (Levy Lopez MD) Critical Care Note Critical Care Note Critical Care Time: 30-74 min (Reece Diaz) ED Sepsis Exam Date of Focused Sepsis Exam: 06/09/17 Time of Focused Sepsis Exam: 1730 Sepsis Cardiac Exam: Tachycardia Sepsis Resp Exam: CTA Sepsis Cap Refill Exam: <2 Sec Sepsis Peripheral Pulse Exam: Normal Sepsis Peripheral Pulse Location: Radial Sepsis Skin Color Exam: Normal for Ethnicity Skin Temp/Moisture Exam: Warm/Dry (Reece Diaz)
[2017-06-09 15:44] LABS: ABSOLUTE BASOPHIL COUNT 0 /CUMM (0.0-0.2); ABSOLUTE EOSINOPHIL COUNT 0.1 /CUMM (0.0-0.7); ABSOLUTE GRANULOCYTE CT 11.5 /CUMM (1.4-6.5); ABSOLUTE LYMPH COUNT 1.5 /CUMM (1.2-3.4); ABSOLUTE MONOCYTE COUNT 0.6 /CUMM (0.10-0.60); BASOPHIL % 0.1 % (0.0-2.0); EOSINOPHIL % 0.5 % (0-5); GRANULOCYTE % 84.3 % (42.2-75.2); HEMATOCRIT 42.2 % (42-52); MEAN CORPUSCULAR VOLUME 91.1 FL (80.0-94.0); MEAN PLATELET VOLUME 7.6 FL (7.4-10.4); PLATELET COUNT 176 /CUMM (130-400); RBC DISTRIBUTION WIDTH 13.6 % (11.5-14.5); RED BLOOD CELL CT 4.63 /CUMM (4.70-6.10); WHITE BLOOD CELL COUNT 13.6 /CUMM (4.8-10.8)
--- NOTE | 2017-06-09 16:26 | CT SCAN REPORT ---
EXAMINATION: CT HEAD WITHOUT CONTRAST CLINICAL INFORMATION: Altered mental status. COMPARISON: CT head 08/27/2016 TECHNIQUE: Contiguous axial imaging was performed from the skull base to vertex without intravenous administration of contrast. DLP: 691.68 mGy-cm FINDINGS: There is no evidence of acute intracranial hemorrhage or territorial infarction. No abnormal mass effect or midline shift is seen. Coon to white matter differentiation is well preserved. No extra-axial fluid collections are identified. The ventricles are normal in size. There is no abnormal attenuation within the brain parenchyma. The osseous structures and soft tissues are normal. The mastoid air cells and visualized portions of the paranasal sinuses are well aerated. IMPRESSION: No acute intracranial pathology.
--- NOTE | 2017-06-09 16:46 | CT SCAN REPORT ---
EXAMINATION: CT CHEST, ABDOMEN AND PELVIS WITHOUT CONTRAST CLINICAL INFORMATION: Left upper quadrant abdominal pain. Fever. Altered mental status. COMPARISON: CT abdomen pelvis 11/15/2015. Chest x-ray 02/03/2010. TECHNIQUE: Multidetector volumetric CT imaging of the chest, abdomen and pelvis was obtained without intravenous or oral contrast. Coronal and sagittal reformatted images are performed at the CT scanner. DLP: 459.35 mGy-cm. FINDINGS: Patient was imaged with arms at the side and hands crossed over the upper abdomen. This causes artifact. CT CHEST: Lungs: There is a small patchy airspace opacity at the dependent right lung. There is a larger infiltrate at the left lower lobe involving the anterior segment of left lower lobe. Mediastinum: The mediastinum is normal. Pleura: There is no pleural effusion. No pleural mass or thickening. Axilla: No lymphadenopathy. CT ABDOMEN AND PELVIS: Liver, Gallbladder, and Biliary Tree: Focal rounded hypodensity in the right lobe of liver segment 8 measuring 2 cm, axial image 51 (2). This was a hemangioma on the CAT scan of 11/15/2015 and is unchanged. The low-attenuating lesion in the left lobe of liver seen on the prior CT scan not apparent on today's study due to lack of IV contrast and the artifact. No new lesions. No intrahepatic bile duct dilatation. The gallbladder is unremarkable with no evidence of radiopaque gallstones, gallbladder wall thickening, or obvious pericholecystic inflammatory changes. Pancreas: No acute change of the pancreas. No mass. No pancreatic duct dilatation. Spleen: Spleen normal in size and contour. No focal lesion. Adrenal Glands: Adrenal glands are normal in size. No focal mass. Kidneys and Ureters: The kidneys are normal in size, shape, and attenuation. No hydronephrosis, hydroureter, or calculi seen. No perinephric stranding. Bladder: Unremarkable. Gastrointestinal Tract: Large volume of stool throughout the colon. No acute change of the bowel. No bowel obstruction. No bowel wall thickening or edema. The appendix is normal. The small bowel loops are normal. Mesentery: No focal inflammation. No free fluid. No free air. Abdominal Wall: No significant hernia is appreciated. Lymph Nodes: Normal. Vascular: Scattered atherosclerotic vascular wall calcifications of the aorta and iliac vessels. No aneurysm. Pelvic Viscera: Unremarkable. Osseous Structures: No acute abnormality. Degenerative spondylosis of the spine with endplate spurring and facet joint arthrosis, most pronounced at lower lumbar spine. Neural stimulator probe in the central spinal canal; the catheter at the lower thoracic spine. The generator is over the right hip posteriorly in the subcutaneous tissue. IMPRESSION: 1. Left lower lobe infiltrate. Small infiltrate/atelectasis at the dependent right lung. No pleural effusion. 2. No acute abnormality CT scan abdomen and pelvis.
--- NOTE | 2017-06-09 16:51 | RADIOLOGY REPORT ---
EXAMINATION: XR PORTABLE CHEST CLINICAL INFORMATION: Chest pain. COMPARISON: CT chest 06/09/2017. TECHNIQUE: Portable frontal view of the chest was obtained. FINDINGS: There are ill-defined opacities within the lower lobes, greater on the left. No pleural effusion or pneumothorax. The cardiac silhouette and upper mediastinal contours are normal. No acute osseous finding. Cardiac leads overlie the chest. IMPRESSION: There are ill-defined bibasilar opacities that may represent a manifestation of pneumonia in the appropriate clinical setting.
--- NOTE | 2017-06-09 17:49 | History & Physical ---
Olman Chandra MD,[facility] 06/09/17 1748: General Information and HPI MD Statement: I have seen and personally examined KARLA PATTON and documented this H&P. The patient is a 51 year old M who presented with a patient stated chief complaint of [chest pain and change in mental status]. Source of Information: old records, EMS Exam Limitations: unable to give history History of Present Illness: Patient is a 51-year-old male with PMH of Neurostimulator in lumbar spine, seizure disorder GERD, COPD was BIBA the ED for evaluation chest pain and change in mental status. Patient was not confused and not able to give history and ED records as well as older medical records were used for history taking. the contact number in chart record referred to [facility] and family were not present to provide hisotory. According to records patient woke up this morning with left sided chest pain with radiation to right side, associated with questionable shortness of breathing. Patient was BIBA to ED, in the ED was found to have tremor and fever, and due to history of seizure one dose of Ativan was administered after which he started to have severe change in mental status. Patient received narcon and mental status improved but still could not provide history. Allergies/Medications Allergies: Coded Allergies: Sulfa (Sulfonamide Antibiotics) (Intermediate, HIVES 06/09/17) acetaminophen (From VICODIN) (Intermediate, HIVES 06/09/17) hydrocodone (From VICODIN) (Intermediate, HIVES 06/09/17) tramadol ([facility], [facility] 06/09/17) aripiprazole (Intermediate, RASH PER PT. 06/09/17) Home Med list Amitriptyline HCl 25 MG TABLET 1 TAB PO QPM psychiatric/sleep Dicyclomine Hydrochloride (Bentyl) 10 MG CAPSULE 1 CAP PO TID ABDOMINAL DISCOMFORT Divalproex Sodium (Divalproex Sodium ER) 250 MG TAB.ER.24H 1 TAB PO TID SEIZURES (Reported) Gabapentin 400 MG CAPSULE 3 CAP PO TID SEIZURES (Reported) Levetiracetam (Keppra) 750 MG TABLET 1,500 MG PO BID SEIZURES (Reported) Loperamide HCl (Imodium A-D) 2 MG CAPSULE 1 TAB PO BID PRN DIARRHEA Magnesium Oxide 400 MG TABLET 1 TAB PO BID SUPPLEMENT (Reported) Melatonin 3 MG TABLET 2 TAB PO QHS SLEEP (Reported) Morphine Sulfate 15 MG TABLET 1 TAB PO BID PRN PAIN (Reported) Pantoprazole Sodium 40 MG TABLET.DR 1 TAB PO DAILY GI (Reported) Tizanidine HCl 4 MG TABLET 1 TAB PO QPM MUSCLE RELAXER (Reported) Topiramate (Topamax) 100 MG TABLET 0.5 TAB PO QPM SEIZURES (Reported) Topiramate (Topamax) 100 MG TABLET 2 TAB PO QPM SEIZURES (Reported) Past History Travel History Traveled to [place] past 21 day No Medical History Neurological: seizure EENT: NONE Cardiovascular: NONE Respiratory: COPD Gastrointestinal: GERD, PANCREATIT, HERNIA Hepatic: NONE Renal: NONE Musculoskeletal: chronic back pain, osteoarthritis, BACK PAIN STIMULATOR Psychiatric: anxiety, depression Endocrine: NONE Blood Disorders: NONE Cancer(s): NONE MARKETING SUPPORT MANAGER/Reproductive: NONE History of MRSA: No History of VRE: No History of CDIFF: No Surgical History Surgical History: hernia repair-inguinal (2013) Past Family/Social History Psychosocial History ETOH Use: denies use Illicit Drug Use: denies illicit drug use Functional Ability ADLs Independent: dressing, eating, toileting, bathing. Ambulation: independent IADLs Independent: shopping, housework, finances, food prep, telephone, transportation , medication admin. Review of Systems Review of Systems Constitutional: Reports: see HPI. Exam & Diagnostic Data Last 24 Hrs of Vital Signs/I&O Vital Signs Date Time Temp Pulse Resp B/P B/P Pulse O2 O2 Flow FiO2 Mean Ox Delivery Rate 06/09 1810 100.7 76 18 113/66 99 Room Air Room Air 06/09 1627 102.2 06/09 1617 102.2 85 15 103/62 97 Room Air Room Air 06/09 1600 97 Room Air Room Air 06/09 1530 100.5 06/09 1504 100.5 103 20 144/62 97 Room Air Room Air Intake & Output 06/09 1600 06/09 0800 06/09 0000 Intake Total Output Total Balance Patient 149 lb Weight Weight Reported by Patient Measurement Method Physical Exam General Appearance Cooperative, No Acute Distress, Confused, mumbles, opens eye in responce to verbal stimuli Skin No Significant Lesion Skin Temp/Moisture Exam: Warm/Dry Sepsis Skin Exam (color): Normal for Ethnicity HEENT Atraumatic, EOMI, Mucous Membr. moist/pink, Pupils mid dilated, repond to light Cardiovascular Regular Rate, Normal S1, Normal S2 Lungs Normal Air Movement, crackles and pleural rub Abdomen Soft, No Tenderness Neurological Complete evaluation not possbile due to patients mental status. Bilateral UE motor normal, bilateral distal LE m normal Extremities No Edema Last 24 Hrs of Labs/Michael: Laboratory Tests 06/09/17 1821: Lactic Acid Cancelled 06/09/17 1612: Urine Opiates Screen > 4000.00 H, Methadone Screen 54, Barbiturate Screen 79, Ur Phencyclidine Scrn < 6.00, Amphetamines Screen 115, U Benzodiazepines Scrn < 85, Urine Cocaine Screen < 50, Urine Cannabis Screen > 80.00 H, Urine Color YEL , Urine Clarity CLEAR, Urine pH 6.5, Ur Specific [place] 1.020, Urine Protein NEG, Urine Ketones TRACE H, Urine Nitrite NEG, Urine Bilirubin NEG, Urine Urobilinogen 1.0, Ur Leukocyte Esterase NEG, Ur Microscopic EXAM NOT REQUIRED, Urine Hemoglobin NEG, Urine Glucose NEG 06/09/17 1555: pH 7.43, pCO2 32 L, pO2 71 L, HCO3 21, ABG O2 Sat (Measured) 94.0 L, P-50 ( Temp Corrected) N, Carboxyhemoglobin 3.3, O2 Concentration % RA, Phlebotomy Draw Site RIGHT BRACHIAL 06/09/17 1527: Lactic Acid 1.8 06/09/17 1527: Anion Gap 12, Estimated GFR > 60, BUN/Creatinine Ratio 23.3, Glucose 81, Calcium 9.3, Total Bilirubin 0.6, AST 22, ALT 12 L, Alkaline Phosphatase 66, Troponin I < 0.01, Total Protein 7.4, Albumin 3.9, Globulin 3.5, Albumin/Globulin Ratio 1.1 , Lipase 46, CBC w Diff MAN DIFF ORDERED, RBC 4.63 L, MCV 91.1, MCH 30.0, MCHC 33.0, RDW 13.6, MPV 7.6, Gran % 84.3 H, Lymphocytes % 10.7 L, Monocytes % 4.4, Eosinophils % 0.5, Basophils % 0.1, Absolute Granulocytes 11.5 H, Segmented Neutrophils 71, Band Neutrophils 7 H, Absolute Lymphocytes 1.5, Lymphocytes 17 L, Monocytes 5, Absolute Monocytes 0.6, Absolute Eosinophils 0.1, Absolute Basophils 0, Platelet Estimate ADEQUATE, Normocytic RBCs VERIFIED, Normochromic RBCs VERIFIED, Valproic Acid 123.4 H, Serum Alcohol < 10.0 06/09/17 1520: Valproic Acid Cancelled Microbiology 06/09 1820 BLOOD: Blood Culture - RECD 06/09 1800 BLOOD: Blood Culture - RECD 06/09 1612 URINE ROUT: Urine Culture - RECD 06/09 1537 NASOPHARYN: Influenza Virus A & B Rapid Smear - COMP Assessment/Plan Assessment: Patient is a 51-year-old male presented with left side chest pain and AMS PMH: Neurostimulator in lumbar spine, seizure disorder, GERD, COPD VS at admission: MAXIMUM TEMPERATURE 100.5, BP 144/62, CT 103, RR 20 Labs at admission: WBC 15.6, Hgb 13.9, band 7, BEP significant, pH 7.4, PCO2 32, PO2 71, UA in significant, toxicology positive for opiates, valproic acid and cannabis Imaging at admission: CXR: There are ill-defined bibasilar opacities that may represent a manifestation of pneumonia in the appropriate clinical setting. Head CT: No acute intracranial pathology Chest,abd CT: 1. Left lower lobe infiltrate. Small infiltrate/atelectasis at the dependent right lung. No pleural effusion. 2. No acute abnormality CT scan abdomen and pelvis. Patient was admitted to general medicine floor for management of following conditions: Change in mental status, secondary to medication in setting of multiple medication use considering toxicology result - admit to GM floor - Neuro checks, VS - seziure/aspiration percautions - neuro consult - consider extra dose of narcon per examination - Npo for now Aspiration pneumonia/sepsis most likely related to AMS, patient meet criteria for sepsis - IV fluids - IV unasyn chronic medial conditions: Continue home medication in IC form - need to confirm CMR in AM - contact family/ care/Pharmacy NPO DVT PPx:alps and Lovenox FC, to confirm in AM As Ranked By This Provider Problem List: 1. Pneumonia Qualifiers Pneumonia type: due to unspecified organism Laterality: left Lung location: unspecified part of lung Qualified Code: J18.9 - Pneumonia, unspecified organism 2. Opiate withdrawal 3. Altered mental state Core Measures/Misc (01/03) Acute Coronary Syndrome ACS Diagnosis: No Congestive Heart Failure Congestive Heart Failure Diagnosis No Cerebrovascular Accident CVA/TIA Diagnosis: No VTE (View Protocol) VTE Risk Factors Age>40 No Mechanical VTE Prophylaxis d/t N/A MechProphylax Ordered No VTE Pharm Prophylaxis d/t NA PharmProphylax ordered Sepsis (View protocol) Sepsis Present: Mason Swift 06/09/17 2016: Resident Review Statement Resident Statement: examined this patient, discussed with sourcing intern, agreed with sourcing intern, discussed with family, reviewed EMR data (avail), discussed with nursing , discussed with case mgmt, reviewed images, amended to note Other Findings: This is a 51-year-old gentleman with past medical history significant for seizures, GERD, chronic back pain, insomnia, history of pancreatitis, osteoarthritis, neurostimulator in lumbar spine was brought in by ambulance for altered mental status. Patient was brought in by ambulance for evaluation of altered mental status. He states that he woke from a nap just prior to the arrival, complaining of left upper chest and left upper quadrant abdominal pain. He was found to be febrile in the emergency room when he arrived. No nausea, vomiting. According to the EMS patient complained left-sided chest wall pain. He denies any shortness of breath, racing of heart, productive cough. And he was in normal state of health this morning, followed up with psychiatrist at [facility]. Patient was very lethargic, arousable to verbal stimuli. He received Ativan 2 mg IV at bedside, became more lethargic after being medicated with Ativan. After that he received Narcan around 5:30pm and became more arousable. Urine toxicology was done which showed opiates. During our examination patient is lethargic, arousable to verbal/pain stimulus. Able to provide only minimal history. Review of systems positive for left-sided chest pain, fever. Denies any nausea, vomiting, abdominal pain, change in bladder or bowel habits, shortness of breath. Patient reports smoking. CTPMP was checked, he is getting morphine sulfate 15 mg every month from . No family members on chart to check about his baseline status. care/pharmacy was contacted to get medication list, however closed. ------ Vitals febrile MAXIMUM TEMPERATURE 102.2, heart rate 85, respiratory rate 15, blood pressure 103/62, saturating at 97 on room air. On exam S1-S2 normal, bilateral rhonchus, coarse breath sounds, abdomen soft nontender nondistended. Bilateral lower extremities no cyanosis no clubbing no edema. Pulses intact. Motor strength 5 out of 5. Able to follow commands. He is lethargic, arousable, oriented 3. Labs leukocytosis 13.6, bandemia 7, hemoglobin 13, hematocrit 42, platelet 1 sentences, BEP completely normal LFTs normal Lactic acid 1.8 Troponin normal Urine analysis wnl U tox positive for opiates, cannabis, divalproex ABG normal Chest x-ray There are ill-defined bibasilar opacities that may represent a manifestation of pneumonia in the appropriate clinical setting. Head CT normal ct chest abdomen pelvis- 1. Left lower lobe infiltrate. Small infiltrate/ atelectasis at the dependent right lung. No pleural effusion. 2. No acute abnormality CT scan abdomen and pelvis. ------- 1. Altered mentation secondary to opiate intoxication Patient was very lethargic, only arousable to verbal stimuli. He received Ativan 2 mg IV at bedside, became more lethargic after being medicated with Ativan. After that he received Narcan around 5:30pm and became more arousable. Urine toxicology was done which showed opiates. CTPMP was checked, he is getting morphine sulfate 15 mg every month from . * Altered mentation/unresponsiveness most likely from opiate intoxication. * Other possibility might be seizure episodes -given his history of seizures. * Aspiration precautions * Seizure precautions * Neurology consult * Follow-up EEG * He takes Keppra, topiramtae, divalproex at home for seizures * However given his nothing by mouth status will give him IV Keppra 1500 mg twice daily for now until we get CMR in the morning. 2. Aspiration pneumonia Patient was found to be altered, unresponsive, arousable with pain stimulus. He might have aspirated from seizures versus altered mentation. He is febrile MAXIMUM TEMPERATURE 102.2 with leukocytosis and bandemia. Chest x-ray and CAT scan chest findings suggestive of aspiration pneumonia. * Admit to general med * Aspiration pneumonia most likely from altered mentation * Monitor vitals every shift * Provide oxygen supplementation if necessary * Monitor for fever, leukocytosis * IV Tylenol for fever * Follow-up blood cultures, urine cultures, sputum cultures if any * Continue IV Unasyn for aspiration pneumonia * Continue aspiration precautions * Nothing by mouth * Swallow evaluation in a.m. * IV fluids gentle hydration * IV Protonix 3. History of seizures/psychiatry disorders/opiate dependence * He takes Keppra, topiramate, divalproex at home for seizures * However given his nothing by mouth status will give him IV Keppra 1500 mg twice daily for now until we get CMR in the morning. * Please get medication list in a.m. * Call care * Call family for further information * Neuro consult. * Follow-up EEG * Psych consult in the a.m. 4. Current smoker-nicotine patch 5. GERD on IV Protonix 6. Chronic back pain has lumbar spine neurostimulator-on morphine sulfate. Consider Narcan if he has any opiate withdrawal overnight. 7. History of insomnia-restart medications once he is completely alert and awake. Full code, double check CODE STATUS in a.m. when he is completely alert and awake Nothing by mouth, pending swallow evaluation and lethargy Subcutaneous Lovenox for DVT prophylaxis Tylenol for fever and pain Please follow-up troponin and EKG in a.m. Please get the medication list and reconcile meds Pollo CHAVEZ, [facility] 06/09/17 2152: Attending MD Review Statement Attending Statement Attending MD Statement: examined this patient, discuss w/resident/PA/PRACTICE PERFORMANCE MANAGER, agreed w/resident/PA/PRACTICE PERFORMANCE MANAGER, reviewed images, amended to note Attending Assessment/Plan: 51 yo M with h/o chronic back pain s/p neurostimulator and on opiate therapy ( Pain Mx Dr. Lambert), seizures, GERD, COPD, was brought in from home for left sided chest pain. He was in his usual state of health until this morning, and had his scheduled psych visit at [facility] [place]. History is as obtained from ER notes as patient was lethargic and difficult to arouse on my evaluation. He is also hard of hearing. Patient was awake on ER arrival at 3 pm and reported no SOB or distress. He started having tremors ?concerning for seizure and received IV ativan. He then became lethargic and responsive only to painful stimuli, unable to form words. He was given two doses of Narcan with some effect. On my evaluation, patient was arousable to verbal and painful stimuli, answered a few questions appropriately although his speech was garbled. He is a current everyday smoker. Vitals: Tmax 102.2, HR 80-100's, BP 103/65, sats 99% RA. Exam: lethargic, arousable to painful stimuli, was able to follow commands, pupils small but RTL, dry mucous membranes, Skin warm and dry, Neck supple, No obvious skin rash, Capillary refill ~2 secs, Chest b/l scattered rhonchi (L>R), no wheeze, Heart S1S2 regular, no murmurs, Abd soft, NT, LE: no edema, Neuro: moving all extremities, withdraws to painful stimuli. Neuro stimulator generator located on right hip. Labs: WBC 13.6, bands 7, BUN 21, creat 0.9, lactic acid 1.8, trop neg, lipase normal. UA normal. Urine tox positive for opiates (>4000), methadone, amphetamines, cannabis. Alcohol <10. Valproic acid 123.4. Initial AB.43/32/71/21 on RA. CXR: ill defined bibasilar opacities suggestive of pneumonia. Head CT: no acute pathology. CT CAP: left lower lobe infiltrate, small infiltrate/atelectasis at dependent right lung. Hemangioma right lobe of liver unchanged. Large volume of stool throughout colon. Degenerative spondylosis, neural stimulator probe central spinal canal, catheter at lower thoracic spine. EKG: baseline artifact being read as Afib, but appears sinus. Echo (2017): EF 55-60%. EEG (2017): abnormal due to left anterior to mid temporal sharp and slow wave discharges. Assessment and plan: 1. Sepsis, left lower lobe pneumonia aspiration vs community acquired 2. Altered mental status medication induced (opiate/benzos), although seizure with post-ictal state is possible. He reponded transiently to Narcan. Rule out meningitis/ encephalitis. 3. History of chronic back pain on narcotics 4. History of seizures - Admit to general medicine - Neurochecks - Seizure, fall and aspiration precautions - NPO, swallow eval in AM once patient more alert - Narcan as needed, watch for hypotension, hypoxia or worsening mentation - Panculture - IV Unasyn for aspiration pneumonia - Gentle IV hydration - Continue IV keppra BID, unable to give topamax and depakote (PO meds) - Obtain EEG and Neuro consult - Hold of morphine, gabapentin, amitriptyline and trazodone - Nicotine patch - Repeat EKG and troponin in AM - Low threshold for ICU transfer if worsening clinical condition or unable to maintain airway - GI ppx IV PPI DVT ppx Lovenox. Full code. Please confirm CMR in AM. Rapid response was called at 9 pm when nurse on the medical floor noted that patient is obtunded and not responsive to verbal or painful stimuli. He was afebrile, HR 80's, BP 90/50, accucheck 111, sats 95% RA. He was maintaining his airway. Narcan x 2 doses (1.4 mg) given with minimal response, patient was noted to have twitching movement of upper extremities. No nuchal rigiditiy. We then transferred him to ICU for closer monitoring. IV fluid bolus and IV keppra 1500 mg given enroute. EKG showed sinus rhythm, no acute changes. Resident spoke with patient's aunt Simi ([phone]) who was not able to provide much info. She spoke with patient earlier this morning and he was doing fine. She claims that patient does not do drugs. While in the ICU, patient was having fluctuating levels of responsiveness, was hypotensive to SBP 80's that responded to IV fluids. We consulted Dr. Patton and Dr. Churchill, concern for meningitis was raised and since we were unable to get a lumbar puncture overnight, empiric IV antibiotics and dexamethasone was given. We will get IR to do lumbar puncture in AM. Hold off heparin products in anticipation of LP. Narcan drip not initiated as patient not hypoxic and maintaining airway, also narcan should be used with caution in a seizure patient. Later he was bradycardic to 30-40's Dr. Espinosa notified patient is known to have bradycardia, outpatient work up negative. Previous lyme titer (2017) was negative. TTS > 55 mins
--- NOTE | 2017-06-09 21:31 | Event Note ---
Event Note Event Note: Rapid response was called Patient is a 51-year-old male with PMH of Neurostimulator in lumbar spine, seizure disorder GERD, COPD was BIBA the ED for evaluation chest pain and confusion. Patient was lying in his bed responding only to painful stimuli. Vitals-blood pressure 130/86, blood sugar 111, saturation 94, heart rate 86. 0.4 mg of Narcan was given. Patient still responding only to painful stimuli. Again decided to give 1 mg of IV Narcan. Patient was still lethargic, mumbling and responding only to sternal rub. In view of his repeated unresponsiveness following 1.8 mg of IV Narcan, it was decided to start him on IV drip and hence transferred to ICU. History is unclear at this time. Patient was transferred to ICU for the same. His aunt Simi was contacted over the phone and informed Regarding the transfer. She agrees with the plan.
--- NOTE | 2017-06-09 21:54 | Admission Certification ---
Admission Certification Certification Statement - As attending physician, I certify that at the time of - admission, based on clinical presentation, severity of - symptoms, need for further diagnostic testing and - therapeutic interventions, and risk of adverse outcomes - without in-hospital treatment, in my clinical assessment, - this patient requires an acute hospital stay for a minimum - of two nights or longer. I have also considered psychsocial - factors such as support system, advanced age, financial - issues, cognitive issues, and failed out-patient treatments, - past re-admission history, safety of patient, and lack of - compliance as applicable. Specific rationale supporting this admission is: Sepsis, altered mental status, aspiration pneumonia, opiate intoxication. Unclear if he had a seizure and is post-ictal.
[2017-06-09 22:00] VITALS: BP 90/58
--- NOTE | 2017-06-09 22:58 | Event Note ---
Event Note Event Note: Situation: 51-year-old gentleman admitted earlier this evening for altered mental status. In ED was given a one-time dose of IV 2mg Ativan and 0.4mg of Ativan Found to be increasingly obtunded and rapid response was called and he was transferred to ICU for close monitoring. Background: Past medical history significant for TBI, hearing impairment, Neurostimulator in lumbar spine, seizure disorder, h/o of bradycardia (unclear etiology), GERD, COPD and chronic pain on opioids During rapid response he was given at total of 1.2mg of Narcan and a total of 3L of NS fluids. Vitals: Tmax 102.2, blood pressure 103/65-->82/45, heart rate 57, saturating 98% on room air Labs significant for leukocytosis of 13.6, prolactin 6.3, troponin 0.01, ABG showing mild hypoxia On examination: Upon arrival to the ICU patient was responding to sternal rubbing was obeying simple commands like squeezing my hand and opening his eyes [facility]. He was able to tell me that he was at [facility] and was able to point which ear that he hears better from. HEENT: Pinpoint pupils, very dry mucous membranes, neck is supple, no JVD noted RS: Bilateral rhonchi CVS: S1-S2, murmurs heard Abdomen: Soft nontender no masses Musculoskeletal: No edema Skin: No signs of redness or swelling noted an area of the stimulator Imaging significant for Left lower lobe infiltrate Echo: 09/13/16 Normal left ventricular ejection fraction estimated at 55-60%. Assessment: Acute mental status secondary to possible sepsis secondary to aspiration pneumonia versus post ictal state secondary to seizure versus encephalitis/meningitis Plan: will admit to ICU, vitals per protocol, q1 hr neuro checks (glascow coma scale) elevate HOB Another 1 L fluid bolus, repeat ABG Intubate if airway is not protected/ GCS <8 LP not able to be done tonight, will need LP as soon as possible in am Will give one time dose of dexamethasone as adjuvant therapy given the possibility of meningitis. Intially the thought was to hold off emperically treating him, however as he continued to become hypotensive and decision was made to give one time dose of total 2g ceftriaxone, 1g vancomyin and and 650mg acyclovir was given after steriods administration. Stat ammonia and lactic acid f/up EEG Narcan PRn as needed if apneic, avoid narcan drip CRCU, neuro and ID consult in am Attending was aware of the above. signout given to night team. patient noted to have HR low 40s, His last admission to [place] was in 09/02 for bradycardia which was presumed to be secondary to pain medications, Haldol, tizanidine and amitriptyline. apparently lyme titre was neg He was seen by Dr. Espinosa and on discharge was to have a 24-hour Holter monitor performed as an outpatient. Pacer and atropine was placed at bedside.
[2017-06-10] VITALS: BP 100/70
--- NOTE | 2017-06-10 00:35 | Event Note ---
Event Note Event Note: Patient was bradycardic to the 40-50'son the monitor. Spoke with Dr. Espinosa. Apparently patient has had extensive work-up in the past doine for bradycardia including a holter monitor. His heart rate has always been in the 50's, and when he was last seen in the office he was sinus ayde to 52
[2017-06-10 06:13] LABS: ABSOLUTE BASOPHIL COUNT 0 /CUMM (0.0-0.2); ABSOLUTE EOSINOPHIL COUNT 0 /CUMM (0.0-0.7); ABSOLUTE GRANULOCYTE CT 15.3 /CUMM (1.4-6.5); ABSOLUTE LYMPH COUNT 1.1 /CUMM (1.2-3.4); ABSOLUTE MONOCYTE COUNT 0.9 /CUMM (0.10-0.60); BASOPHIL % 0 % (0.0-2.0); EOSINOPHIL % 0 % (0-5); MEAN CORPUSCULAR HGB 30.8 PG (27.0-31.0); MEAN CORPUSCULAR HGB CONC 33.6 G/DL (33.0-37.0); MEAN CORPUSCULAR VOLUME 91.8 FL (80.0-94.0); MEAN PLATELET VOLUME 8.4 FL (7.4-10.4); PLATELET COUNT 123 /CUMM (130-400); RBC DISTRIBUTION WIDTH 13.8 % (11.5-14.5); RED BLOOD CELL CT 4.05 /CUMM (4.70-6.10); WHITE BLOOD CELL COUNT 17.4 /CUMM (4.8-10.8)
[2017-06-10 06:19] LABS: HEMATOCRIT 37.1 % (42-52)
--- NOTE | 2017-06-10 07:31 | Cons- CRCU ---
Herber CHAVEZ,[facility] 06/10/17 0731: General Information and HPI Consulting Request Date of Consult: 06/10/17 Requested By: Source of Information: old records History of Present Illness: The patient is 51-year-old man with past medical history of GERD, seizures, chronic back pain status post neurostimulator and on chronic opiate therapy. Patient has a lifeline and called EMS for left-sided chest pain. He was in his usual state of health until this morning, and had his scheduled psych visit at [facility]. Patient was awake on ER arrival at 3 pm and reported no SOB or distress. He started having tremors; (concerning for seizure) and received IV ativan. He then became lethargic and responsive only to painful stimuli, unable to form words. After that he received Narcan around 5:30pm and became more arousable. Urine toxicology was done which showed opiates. -On evaluation by hospitalist, patient was arousable to verbal and painful stimuli, answered a few questions appropriately although his speech was garbled. He was admitted to general medicine for further treatment of systems sepsis secondary to left lower lobe pneumonia along with altered mental status probably medication induced -Rapid response was called at 9 pm when nurse on the medical floor noted that patient is obtunded and not responsive to verbal or painful stimuli. He was afebrile, HR 80's, BP 90/50, accucheck 111, sats 95% RA. EKG showed sinus rhythm, no acute changes. He was maintaining his airway. Narcan x 2 doses (1.4 mg) given with minimal response, patient was noted to have twitching movement of upper extremities. No nuchal rigiditiy. We then transferred him to ICU for closer monitoring. IV fluid bolus and IV keppra 1500 mg given enroute. -While in the ICU, patient was having fluctuating levels of responsiveness, was hypotensive to SBP 80's that responded to IV fluids. There was concern for meningitis. LP was not done overnight and pt was started pm empiric IV antibiotics and dexamethasone -Narcan drip was not initiated as patient was not hypoxic and was maintaining airway, especially with the history of seizures. -Later in the night patient became bradycardic to 30-40's. Dr. Espinosa was notified and patient is known to have bradycardia, outpatient work up so far has been negative -In the morning patient was resting comfortably no acute distress. Was easily arousable. Reports being tried 'because he had busy night'. He was alert oriented 3 overnight and in the morning as well. He told that his pharmacy is [facility], from where we can confirm the medication list. Tmax 102.2 in ED Heart rate 30s to 50s intially Tachy on admission Sinus rhythm to sinus bradycardia RR 15 to 20 Blood pressure borderline 100 to 80s/70s to 40s Oxygen saturation 98% on 2L NC Input from 3180 output [address] Patient received about 2000ml in IV boluses to maintain blood pressure He initially received ceftriaxone and azithromycin and later was started on Unasyn. He received vancomycin, acyclovir, second dose of ceftriaxone and Decadron for empirical coverage for meningitis Narcan drip was not started, received Keppra 1500 MG H/H , WBC count 17.4 trending up,bands 6 platelet count 123 downgoing concerning for sepsis Na 143, potassium 3.1, chloride 115, bicarbonate 18, ammonia 31 Utox positive for opiates and cannabis. As well as valproic acid ABGs 7.43/32/ BCX2 pending Urine culture pending Allergies/Medications Allergies: Coded Allergies: Sulfa (Sulfonamide Antibiotics) (Intermediate, HIVES 06/09/17) acetaminophen (From VICODIN) (Intermediate, HIVES 06/09/17) hydrocodone (From VICODIN) (Intermediate, HIVES 06/09/17) tramadol (Intermediate, HIVES 06/09/17) aripiprazole (Intermediate, RASH PER PT. 06/09/17) Home Med List: Amitriptyline HCl 25 MG TABLET 1 TAB PO QPM psychiatric/sleep Divalproex Sodium (Divalproex Sodium ER) 250 MG TAB.ER.24H 3 TAB PO TID seizures (Reported) Gabapentin 400 MG CAPSULE 3 CAP PO TID SEIZURES (Reported) Levetiracetam (Keppra) 750 MG TABLET 1,500 MG PO BID SEIZURES (Reported) Magnesium Oxide 400 MG TABLET 1 TAB PO BID SUPPLEMENT (Reported) Melatonin 3 MG TABLET 2 TAB PO QHS SLEEP (Reported) Morphine Sulfate 15 MG TABLET 1 TAB PO BID PRN PAIN (Reported) Pantoprazole Sodium 40 MG TABLET.DR 1 TAB PO DAILY GI (Reported) Topiramate (Topamax) 50 MG TABLET 2 TAB PO QAM seizure (Reported) Topiramate (Topamax) 50 MG TABLET 3 TAB PO QPM seizure (Reported) Review of Systems Review of Systems Constitutional: Reports: see HPI. 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 Ambulation: independent IADLs Independent: shopping, housework, finances, food prep, telephone, transportation , medication admin. Exam & Diagnostic Data Last 24 Hrs of Vital Signs/I&O Vital Signs Date Time Temp Pulse Resp B/P B/P Pulse O2 O2 Flow FiO2 Mean Ox Delivery Rate 06/10 0400 98 Nasal 1.0L Cannula 06/10 0000 96 Nasal 1.0L Cannula 06/10 0000 97.3 45 20 100/70 96 Nasal 1.0L Cannula 06/09 2336 93 Nasal 1.0L Cannula 06/09 2228 Nasal 1.0L Cannula 06/09 2200 99.2 59 17 90/58 98 Room Air 06/09 1957 99.5 78 16 103/65 96 Room Air 06/09 1810 100.7 76 18 113/66 99 Room Air Room Air 06/09 1627 102.2 06/09 1617 102.2 85 15 103/62 97 Room Air Room Air 06/09 1600 97 Room Air Room Air 06/09 1530 100.5 06/09 1504 100.5 103 20 144/62 97 Room Air Room Air Intake & Output 06/10 0800 06/10 0000 06/09 1600 Intake Total 3005 175 Output Total 670 800 Balance 2335 -625 Intake, IV 3005 175 Intake, Oral 0 Number 1 Bowel Movements Output, Urine 670 800 Patient 140 lb 149 lb Weight Weight Bed scale Reported by Patient Measurement Method Physical Exam General Appearance: alert, awake Other Physical Findings: Skin no rash. HEENT negative. Neck supple with no adenopathy. Lungs clear. Heart regular rhythm with no murmur. Abdomen is soft, mildly tender on palpation over the lower abdomen, with no guarding or rebound, with positive bowel sounds. Back no CVA tenderness. Extremities no cyanosis, clubbing or edema; right hip neurostimulator in place with no inflammation at the site. Neuro is without focality. Valdez catheter is in place. Last 48 Hrs of Labs/Michael: Laboratory Tests 06/10/17 0450: Anion Gap 10, Estimated GFR > 60, BUN/Creatinine Ratio 20.0, Magnesium 1.6, Troponin I < 0.01, CBC w Diff MAN DIFF ORDERED, RBC 4.05 L, MCV 91.8, MCH 30.8, MCHC 33.6, RDW 13.8, MPV 8.4, Gran % 88.0 H, Lymphocytes % 6.6 L, Monocytes % 5.4, Eosinophils % 0, Basophils % 0, Absolute Granulocytes 15.3 H, Segmented Neutrophils 82 H, Band Neutrophils 6 H, Absolute Lymphocytes 1.1 L, Lymphocytes 8 L, Monocytes 4, Absolute Monocytes 0.9 H, Absolute Eosinophils 0 , Absolute Basophils 0, Platelet Estimate ADEQUATE, Normochromic RBCs VERIFIED, Ovalocytes FEW, Fld Total RBCs Counted 100 06/10/17 0019: Lactic Acid 1.3, Ammonia 31 H 06/09/17 2109: Troponin I < 0.01, Prolactin 6.3 06/09/17 1821: Lactic Acid Cancelled 06/09/17 1612: Urine Opiates Screen > 4000.00 H, Methadone Screen 54, Barbiturate Screen 79, Ur Phencyclidine Scrn < 6.00, Amphetamines Screen 115, U Benzodiazepines Scrn < 85, Urine Cocaine Screen < 50, Urine Cannabis Screen > 80.00 H, Urine Color YEL , Urine Clarity CLEAR, Urine pH 6.5, Ur Specific [place] 1.020, Urine Protein NEG, Urine Ketones TRACE H, Urine Nitrite NEG, Urine Bilirubin NEG, Urine Urobilinogen 1.0, Ur Leukocyte Esterase NEG, Ur Microscopic EXAM NOT REQUIRED, Urine Hemoglobin NEG, Urine Glucose NEG 06/09/17 1555: pH 7.43, pCO2 32 L, pO2 71 L, HCO3 21, ABG O2 Sat (Measured) 94.0 L, P-50 ( Temp Corrected) N, Carboxyhemoglobin 3.3, O2 Concentration % RA, Phlebotomy Draw Site RIGHT BRACHIAL 06/09/17 1537: Virus Culture Pending 06/09/17 1527: Lactic Acid 1.8 06/09/17 1527: Anion Gap 12, Estimated GFR > 60, BUN/Creatinine Ratio 23.3, Glucose 81, Calcium 9.3, Total Bilirubin 0.6, AST 22, ALT 12 L, Alkaline Phosphatase 66, Troponin I < 0.01, Total Protein 7.4, Albumin 3.9, Globulin 3.5, Albumin/Globulin Ratio 1.1 , Lipase 46, CBC w Diff MAN DIFF ORDERED, RBC 4.63 L, MCV 91.1, MCH 30.0, MCHC 33.0, RDW 13.6, MPV 7.6, Gran % 84.3 H, Lymphocytes % 10.7 L, Monocytes % 4.4, Eosinophils % 0.5, Basophils % 0.1, Absolute Granulocytes 11.5 H, Segmented Neutrophils 71, Band Neutrophils 7 H, Absolute Lymphocytes 1.5, Lymphocytes 17 L, Monocytes 5, Absolute Monocytes 0.6, Absolute Eosinophils 0.1, Absolute Basophils 0, Platelet Estimate ADEQUATE, Normocytic RBCs VERIFIED, Normochromic RBCs VERIFIED, Valproic Acid 123.4 H, Serum Alcohol < 10.0 06/09/17 152: Valproic Acid Cancelled 06/09/17 0055: pH 7.42, pCO2 26 L, pO2 90, HCO3 18 L, ABG O2 Sat (Measured) 96.0, P-50 (Temp Corrected) Y, Carboxyhemoglobin 0.4 L, O2 Concentration % 1 LPM, Temperature 97.3, O2 Delivery Method N/C, Phlebotomy Draw Site LEFT RADIAL Microbiology 06/10 1150 URINE ROUT: Legionella Antigen - COMP 06/10 1150 URINE ROUT: Streptococcus pneumoniae Antigen (M - COMP 06/09 1537 NASOPHARYN: Influenza Virus A & B Rapid Smear - COMP Assessment/Plan CRCU Impression/Plan: The patient is 51-year-old man with past medical history of GERD, seizures, chronic back pain status post neurostimulator and on chronic opiate therapy. Patient has a lifeline and called EMS for left-sided chest pain. In ED patient became lethargic only responsive to painful stimuli after receiving IV Ativan. Vitals on presentation Tmax 102.2, HR 80-100's, BP 103/65, sats 99% RA -WBC 13.6, bands 7, BUN 21, creat 0.9, lactic acid 1.8, trop neg, lipase normal. UA normal. utox see HPI -Rapid flu swab negative -CXR: ill defined bibasilar opacities suggestive of pneumonia. -Head CT: no acute pathology. -CT CAP: left lower lobe infiltrate, small infiltrate/atelectasis at dependent right lung. Hemangioma right lobe of liver unchanged. Large volume of stool throughout colon. Degenerative spondylosis, neural stimulator probe central spinal canal, catheter at lower thoracic spine. -EKG: baseline artifact being read as Afib, but appears sinus. -Echo (2017): EF 55-60%. The pt is currently being treated and evaluated for following conditions #AMS The patient initially presented with sepsis-like picture (see below) with left lower lobe infiltrate suspicious for pneumonia. In ED patient received Ativan and became lethargic and unresponsive requiring Narcan. The possible etiologies of altered mental status include meningitis/encephalitis with the presentation of fever, leukocytosis bandemia and tachycardia along with h/o neurostimulator. Medication-induced considering patient is on chronic opiate therapy for chronic back pain along with benzodiazepine administration in the ED. Of note patient is also taking a tricyclic antidepressant amitryptaline , Overdose also needs to be considered. Seizure with post-ictal state is also a possibility. -Improving altered mental status with no meningeal signs along with resolution of fever makes meningitis/encephalitis less likely - Seizure with post-ictal state again it is a possibility though less likely. No clinical seizure has been noted since admission and the patient being maintained on valproic acid, Keppra, topiramate and gabapentin -Most likely cause of AMS is medication induced secondary to narcotics and ativan #Sepsis 2/2 left lower lobe aspiration pneumonia vs meningitis The patient presented sudden onset pleuritic chest pain along with with fever, tachycardia, later became hypotensive as well, Leukocytosis, bandemia, bibasilar densities on chest x-ray with CT showing left lower infiltrate. See above meningitis is a possibility though less likely in setting of resolving altered mental status. Patient received empirical therapy with ceftriaxone, vancomycin, acyclovir and Decadron yesterday -Monitor fever and WBC curve, WBC count is trending up and can be secondary to Decadron administration, bandemia is improving -Continue Unasyn -Urinary leigenella and strep pneumo antigen -Follow blood cultures, urine cultures and sputum cultures. #History of seizures -Consider EEG -Continue Keppra -Continue gabapentin 800 mg 3 times a day -Continue Topamax -Valproic acid on hold will recheck levels again tomorrow and resume #History of depression Amitryptaline on hold will resume after checking the level #History of chronic back pain on narcotics -Watch for excessive sedation -Avoid benzodiazepines #Sinus bradycardia -Continued monitoring of the sinus bradycardia with no treatment indicated unless it becomes symptomatic -Consider short-term with oral theophylline if symptomatic #Constipation Patient complaining of lower abdominal pain CT scan positive for Large volume of stool throughout colon. Most likely secondary to opiates -Extensive bowel regimen MiraLAX senna Colace milk of magnesia and if no bowel movement consider Dulcolax suppository #Hypokalemia Monitor and replete aggressively FC/DVT prophylaxis with Lovenox/12 after swallow eval patient's diet has been advanced to thin liquids and ground solids Consult Acknowledgment - Thank you for your consult request. Pooja CHAVEZ,[facility] 06/10/17 0859: Assessment/Plan CRCU Other Findings/Comments: Seen and examined independently Pt with multiple issues as noted above comes in with Sig sepsis with altered mental status (pt has been on narcotics and had received ativan) Pneumonia left lower lobe wit pleuritic pain Improving altered mental status with no neck stiffness etc, unlikely meningitis but will await ID eval No clinical seizure noted since admission but pt has sig history of seizure Sinus ayde with electrolyte abnormality Chronic pain syndrome on narcotics with neurostimulator with cath at lower thoracic spine REC Cont unasyn Urinary leigenella and strep pneumo antigen Sig ayde COnt Keppra, and when able to take po start gabapentin 800 mg tid Hold valproic acid and check levels again and resume when the level is ok Chek amitryptaline level Resume topomax Change IVf to d5 1/2 normal saline with kcl PO kcl when he is able to take po Kcl runs Neuro/Cardio consult/Id to see Agg bowel regimen, if no bm dulcolax supp, miralax Will follow Consult Acknowledgment - Thank you for your consult request.
[2017-06-10 08:00] VITALS: BP 100/70
--- NOTE | 2017-06-10 10:28 | Cons- Infect Disease ---
General Information and HPI Consulting Request Date of Consult: 06/10/17 Requested By: Pooja CHAVEZ,Chiki Long Reason for Consult: Rule out meningitis Source of Information: patient, old records History of Present Illness: This is a 51-year-old man with a history of chronic back pain, status post neurostimulator placement and maintained on Morphine, seizure disorder, maintained on 4 medications, unexplained bradycardia, and COPD admitted on June 09 with the acute onset of chest pain, radiating to the right side of his chest, associated with shortness of breath. On admission he was febrile to 102.2. He was noted to have tremors and was given Ativan, after which he became minimally responsive. He was given Narcan 2 doses with "good effect". Laboratory data revealed a white blood cell count of 14,000, with 71 segs and 7 bands, BUN/creatinine 21 and 0.9, with normal liver enzymes. Valproic acid level 123. Urinalysis negative. Urine tox screen greater than 4000 ng per mL of opiates/morphine. Chest x-ray revealed ill-defined bibasilar opacities. CT of the head was negative. CT of the chest, abdomen and pelvis revealed a left lower lobe density with a small infiltrate/atelectasis at the dependent right lung. He was given Ceftriaxone and Azithromycin in the emergency room and was then changed to Unasyn and admitted to the floor. Overnight he again became minimally responsive and bradycardic and was transferred to the ICU for a Narcan drip. He was given 1 dose of Decadron, Vancomycin, a second dose of Ceftriaxone and Acyclovir. He has defervesced overnight and became more responsive. At present he notes a cough and mild shortness of breath but he does not have any further chest pain. He does note lower abdominal discomfort. Allergies/Medications Allergies: Coded Allergies: Sulfa (Sulfonamide Antibiotics) (Intermediate, HIVES 06/09/17) acetaminophen (From VICODIN) (Intermediate, HIVES 06/09/17) hydrocodone (From VICODIN) (Intermediate, HIVES 06/09/17) tramadol (Intermediate, HIVES 06/09/17) aripiprazole (Intermediate, RASH PER PT. 06/09/17) Home Med List: Amitriptyline HCl 25 MG TABLET 1 TAB PO QPM psychiatric/sleep Dicyclomine Hydrochloride (Bentyl) 10 MG CAPSULE 1 CAP PO TID ABDOMINAL DISCOMFORT Divalproex Sodium (Divalproex Sodium ER) 250 MG TAB.ER.24H 1 TAB PO TID SEIZURES (Reported) Gabapentin 400 MG CAPSULE 3 CAP PO TID SEIZURES (Reported) Levetiracetam (Keppra) 750 MG TABLET 1,500 MG PO BID SEIZURES (Reported) Loperamide HCl (Imodium A-D) 2 MG CAPSULE 1 TAB PO BID PRN DIARRHEA Magnesium Oxide 400 MG TABLET 1 TAB PO BID SUPPLEMENT (Reported) Melatonin 3 MG TABLET 2 TAB PO QHS SLEEP (Reported) Morphine Sulfate 15 MG TABLET 1 TAB PO BID PRN PAIN (Reported) Pantoprazole Sodium 40 MG TABLET.DR 1 TAB PO DAILY GI (Reported) Tizanidine HCl 4 MG TABLET 1 TAB PO QPM MUSCLE RELAXER (Reported) Topiramate (Topamax) 100 MG TABLET 0.5 TAB PO QPM SEIZURES (Reported) Topiramate (Topamax) 100 MG TABLET 2 TAB PO QPM SEIZURES (Reported) Past History Travel History Traveled to [place] past 21 day No Medical History Neurological: seizure EENT: NONE Cardiovascular: NONE Respiratory: COPD Gastrointestinal: GERD, PANCREATITIS Hepatic: NONE Renal: NONE Musculoskeletal: chronic back pain, osteoarthritis, BACK PAIN STIMULATOR Psychiatric: anxiety, depression Endocrine: NONE Blood Disorders: NONE Cancer(s): NONE 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 Ambulation: independent IADLs Independent: shopping, housework, finances, food prep, telephone, transportation , medication admin. Review of Systems Review of Systems EENTM: Reports: hearing changes. All Other Systems: Reviewed and Negative Exam & Diagnostic Data Last 24 Hrs of Vital Signs/I&O Vital Signs Date Time Temp Pulse Resp B/P B/P Pulse O2 O2 Flow FiO2 Mean Ox Delivery Rate 06/10 799 98.2 48 16 100/70 99 Nasal 1.0L Cannula 06/10 0800 99 Nasal 1.0L Cannula 06/10 0400 98 Nasal 1.0L Cannula 06/10 0000 96 Nasal 1.0L Cannula 06/10 0000 97.3 45 20 100/70 96 Nasal 1.0L Cannula 06/09 2336 93 Nasal 1.0L Cannula 06/098 Nasal 1.0L Cannula 06/09 2200 99.2 59 17 90/58 98 Room Air 06/09 1957 99.5 78 16 103/65 96 Room Air 06/09 1810 100.7 76 18 113/66 99 Room Air Room Air 06/09 1627 102.2 06/09 1617 102.2 85 15 103/62 97 Room Air Room Air 06/09 1600 97 Room Air Room Air 06/09 1530 100.5 06/09 1504 100.5 103 20 144/62 97 Room Air Room Air Intake & Output 06/10 1600 06/10 0800 06/10 0000 Intake Total 3005 175 Output Total 670 800 Balance 2335 -625 Intake, IV 3005 175 Intake, Oral 0 Number 1 Bowel Movements Output, Urine 670 800 Patient 140 lb Weight Weight Bed scale Measurement Method Physical Exam Other Physical Findings: MAXIMUM TEMPERATURE 102.2. He is awake and alert in no acute distress. Skin reveals no rash. HEENT negative. Neck is supple with no adenopathy. Lungs are clear. Heart regular rhythm with no murmur. Abdomen is soft, mildly tender on palpation over the lower abdomen, with no guarding or rebound, with positive bowel sounds. Back no CVA tenderness. Extremities no cyanosis, clubbing or edema; right hip neurostimulator in place with no inflammation at the site. Neuro is without focality. Valdez catheter is in place. Last 24 Hours of Lab Results: Laboratory Tests 06/10 06/10 06/09 0450 0019 2109 Chemistry Sodium (137 - 145 mmol/L) 143 Potassium (3.5 - 5.1 mmol/L) 3.1 L Chloride (98 - 107 mmol/L) 115 H Carbon Dioxide (22 - 30 mmol/L) 18 L Anion Gap (5 - 16) 10 BUN (9 - 20 mg/dL) 12 Creatinine (0.7 - 1.2 mg/dL) 0.6 L Estimated GFR (>60 ml/min) > 60 BUN/Creatinine Ratio (7 - 25 %) 20.0 Lactic Acid (0.7 - 2.1 mmol/L) 1.3 Magnesium (1.6 - 2.3 mg/dL) 1.6 Ammonia (9 - 30 umol/L) 31 H Troponin I (<0.11 ng/ml) < 0.01 < 0.01 Prolactin (3.7 - 17.9 ng/mL) 6.3 Hematology CBC w Diff MAN DIFF ORDERED WBC (4.8 - 10.8 /CUMM) 17.4 H RBC (4.70 - 6.10 /CUMM) 4.05 L Hgb (14.0 - 18.0 G/DL) 12.5 L Hct (42 - 52 %) 37.1 L MCV (80.0 - 94.0 FL) 91.8 MCH (27.0 - 31.0 PG) 30.8 MCHC (33.0 - 37.0 G/DL) 33.6 RDW (11.5 - 14.5 %) 13.8 Plt Count (130 - 400 /CUMM) 123 L MPV (7.4 - 10.4 FL) 8.4 Gran % (42.2 - 75.2 %) 88.0 H Lymphocytes % (20.5 - 51.1 %) 6.6 L Monocytes % (1.7 - 9.3 %) 5.4 Eosinophils % (0 - 5 %) 0 Basophils % (0.0 - 2.0 %) 0 Absolute Granulocytes (1.4 - 6.5 /CUMM) 15.3 H Segmented Neutrophils (42.2 - 75.2 %) 82 H Band Neutrophils (0.0 - 5.0 %) 6 H Absolute Lymphocytes (1.2 - 3.4 /CUMM) 1.1 L Lymphocytes (20.5 - 51.1 %) 8 L Monocytes (1.7 - 9.3 %) 4 Absolute Monocytes (0.10 - 0.60 /CUMM) 0.9 H Absolute Eosinophils (0.0 - 0.7 /CUMM) 0 Absolute Basophils (0.0 - 0.2 /CUMM) 0 Platelet Estimate (ADEQUATE) ADEQUATE Normochromic RBCs VERIFIED Ovalocytes FEW Other Body Source Fld Total RBCs Counted (%) 100 06/09 06/09 1821 1612 Chemistry Lactic Acid Cancelled Toxicology Urine Opiates Screen (>2000 NG/ML) > 4000.00 H Methadone Screen (>300 NG/ML) 54 Barbiturate Screen (>200 NG/ML) 79 Ur Phencyclidine Scrn (>25 NG/ML) < 6.00 Amphetamines Screen (>1000 NG/ML) 115 U Benzodiazepines Scrn (>200 NG/ML) < 85 Urine Cocaine Screen (>300 NG/ML) < 50 Urine Cannabis Screen (>50 NG/ML) > 80.00 H Urines Urine Color (YEL,AMB,STR) YEL Urine Clarity (CLEAR) CLEAR Urine pH (5.0 - 8.0) 6.5 Ur Specific [place] (1.001 - 1.035) 1.020 Urine Protein (NEG,<30 MG/DL) NEG Urine Ketones (NEG) TRACE H Urine Nitrite (NEG) NEG Urine Bilirubin (NEG) NEG Urine Urobilinogen (0.1 - 1.0 EU/dl) 1.0 Ur Leukocyte Esterase (NEG) NEG Ur Microscopic EXAM NOT REQUIRED Urine Hemoglobin (NEG) NEG Urine Glucose (N MG/DL) NEG 06/09 06/09 06/09 1555 1537 1527 Blood Gas pH (7.35 - 7.45 PH) 7.43 pCO2 (35 - 45 TORR) 32 L pO2 (80 - 100 TORR) 71 L HCO3 (21 - 28 MEQ/L) 21 ABG O2 Sat (Measured) (>96.0 %) 94.0 L P-50 (Temp Corrected) N Carboxyhemoglobin (1.5 - 5.0 %) 3.3 O2 Concentration % RA Chemistry Lactic Acid (0.7 - 2.1 mmol/L) 1.8 Miscellaneous Phlebotomy Draw Site RIGHT BRACHIAL Serology Virus Culture Pending 06/09 06/09 1527 1520 Chemistry Sodium (137 - 145 mmol/L) 141 Potassium (3.5 - 5.1 mmol/L) 3.8 Chloride (98 - 107 mmol/L) 102 Carbon Dioxide (22 - 30 mmol/L) 26 Anion Gap (5 - 16) 12 BUN (9 - 20 mg/dL) 21 H Creatinine (0.7 - 1.2 mg/dL) 0.9 Estimated GFR (>60 ml/min) > 60 BUN/Creatinine Ratio (7 - 25 %) 23.3 Glucose (65 - 99 mg/dL) 81 Calcium (8.4 - 10.2 mg/dL) 9.3 Total Bilirubin (0.2 - 1.3 mg/dL) 0.6 AST (17 - 59 U/L) 22 ALT (21 - 72 U/L) 12 L Alkaline Phosphatase (< 127 U/L) 66 Troponin I (<0.11 ng/ml) < 0.01 Total Protein (6.3 - 8.2 g/dL) 7.4 Albumin (3.5 - 5.0 g/dL) 3.9 Globulin (1.9 - 4.2 gm/dL) 3.5 Albumin/Globulin Ratio (1.1 - 2.2 %) 1.1 Lipase (23 - 300 U/L) 46 Hematology CBC w Diff MAN DIFF ORDERED WBC (4.8 - 10.8 /CUMM) 13.6 H RBC (4.70 - 6.10 /CUMM) 4.63 L Hgb (14.0 - 18.0 G/DL) 13.9 L Hct (42 - 52 %) 42.2 MCV (80.0 - 94.0 FL) 91.1 MCH (27.0 - 31.0 PG) 30.0 MCHC (33.0 - 37.0 G/DL) 33.0 RDW (11.5 - 14.5 %) 13.6 Plt Count (130 - 400 /CUMM) 176 MPV (7.4 - 10.4 FL) 7.6 Gran % (42.2 - 75.2 %) 84.3 H Lymphocytes % (20.5 - 51.1 %) 10.7 L Monocytes % (1.7 - 9.3 %) 4.4 Eosinophils % (0 - 5 %) 0.5 Basophils % (0.0 - 2.0 %) 0.1 Absolute Granulocytes (1.4 - 6.5 /CUMM) 11.5 H Segmented Neutrophils (42.2 - 75.2 %) 71 Band Neutrophils (0.0 - 5.0 %) 7 H Absolute Lymphocytes (1.2 - 3.4 /CUMM) 1.5 Lymphocytes (20.5 - 51.1 %) 17 L Monocytes (1.7 - 9.3 %) 5 Absolute Monocytes (0.10 - 0.60 /CUMM) 0.6 Absolute Eosinophils (0.0 - 0.7 /CUMM) 0.1 Absolute Basophils (0.0 - 0.2 /CUMM) 0 Platelet Estimate (ADEQUATE) ADEQUATE Normocytic RBCs VERIFIED Normochromic RBCs VERIFIED Toxicology Valproic Acid (50 - 120 ug/mL) 123.4 H Cancelled Serum Alcohol (<10 MG/DL) < 10.0 Last 24 Hours of Michael Results: Blood cultures 2 June 09 negative Urine culture June 09 pending Rapid flu swab June 09 negative Diagnostic Data Recent Imaging Findings: Chest x-ray revealed ill-defined bibasilar opacities. CT of the head was negative. CT of the chest, abdomen and pelvis revealed a left lower lobe density with a small infiltrate/atelectasis at the dependent right lung. Assessment/Plan Assessment/Plan Impression: This is a 51-year-old man with a history of chronic back pain, status post neurostimulator placement and maintained on Morphine, seizure disorder, maintained on 4 medications, unexplained bradycardia, and COPD admitted on June 09 with the acute onset of chest pain, radiating to the right side of his chest, associated with shortness of breath, found to be febrile with a leukocytosis and bibasilar densities on chest x-ray, with his hospital course complicated by decreased responsiveness after a dose of Ativan given in the emergency room. His mental status has improved and suspect that his decreased responsiveness was related to medications, given his positive urine toxicology screen and treatment with Ativan. He has no evidence for meningitis and, therefore, do not feel that a lumbar puncture is necessary. His fever is most likely secondary to aspiration pneumonia, and he can be continued on Unasyn. His white blood cell count has increased today, possibly secondary to the dose of Decadron he received overnight. The etiology of his lower abdominal discomfort is unclear and will need to follow. His bradycardia has been evaluated in the past with no etiology identified. Suggestion: 1. Would attempt to obtain a sputum culture 2. Follow-up recent blood and urine cultures 3. Remove Valdez catheter 4. Continue Unasyn Consult Acknowledgment - Thank you for your consult request.
--- NOTE | 2017-06-10 10:48 | Cons- Cardiology ---
General Information and HPI Consulting Request Date of Consult: 06/10/17 Requested By: Pooja CHAVEZ,Chiki Long Reason for Consult: Sinus bradycardia History of Present Illness: The patient is a 51-year-old male with history of seizure disorder, COPD, chronic back pain status post neurostimulator, and chronic opiate therapy. The patient called EMS for left side pain. Upon arrival in the emergency department he was observed to have tremors. He was treated with IV Ativan and became lethargic. After treatment with Narcan, he was found to be more arousable. He is now awake and alert with no current complaints. No chest pain. No nausea or vomiting. No lightheadedness or dizziness. No palpitations. He is noted to have sinus bradycardia on telemetry. The patient is followed in the office by Dr. Espinosa. He is known to have a history of bradycardia, and outpatient workup has been negative so far. Allergies/Medications Allergies: Coded Allergies: Sulfa (Sulfonamide Antibiotics) (Intermediate, HIVES 06/09/17) acetaminophen (From VICODIN) (Intermediate, HIVES 06/09/17) hydrocodone (From VICODIN) (Intermediate, HIVES 06/09/17) tramadol (Intermediate, HIVES 06/09/17) aripiprazole (Intermediate, RASH PER PT. 06/09/17) Home Med List: Amitriptyline HCl 25 MG TABLET 1 TAB PO QPM psychiatric/sleep Dicyclomine Hydrochloride (Bentyl) 10 MG CAPSULE 1 CAP PO TID ABDOMINAL DISCOMFORT Divalproex Sodium (Divalproex Sodium ER) 250 MG TAB.ER.24H 1 TAB PO TID SEIZURES (Reported) Gabapentin 400 MG CAPSULE 3 CAP PO TID SEIZURES (Reported) Levetiracetam (Keppra) 750 MG TABLET 1,500 MG PO BID SEIZURES (Reported) Loperamide HCl (Imodium A-D) 2 MG CAPSULE 1 TAB PO BID PRN DIARRHEA Magnesium Oxide 400 MG TABLET 1 TAB PO BID SUPPLEMENT (Reported) Melatonin 3 MG TABLET 2 TAB PO QHS SLEEP (Reported) Morphine Sulfate 15 MG TABLET 1 TAB PO BID PRN PAIN (Reported) Pantoprazole Sodium 40 MG TABLET.DR 1 TAB PO DAILY GI (Reported) Tizanidine HCl 4 MG TABLET 1 TAB PO QPM MUSCLE RELAXER (Reported) Topiramate (Topamax) 100 MG TABLET 0.5 TAB PO QPM SEIZURES (Reported) Topiramate (Topamax) 100 MG TABLET 2 TAB PO QPM SEIZURES (Reported) Current Medications: Current Medications Sig/Onur Start time Last Medication Dose Route Stop Time Status Admin Acetaminophen 650 MG Q6P PRN 06/09 1930 AC PO Acetaminophen 1,000 MG Q6P PRN 06/09 1930 AC IV Acetaminophen 0 .STK-MED ONE 06/09 1537 DC IV Acetaminophen 1,000 MG ONCE ONE 06/09 1530 DC 06/09 N/A 1 UNIT IV 06/09 1544 1530 Acyclovir 650 MG ONCE ONE 06/09 2330 DC 06/10 Dextrose/Water 100 ML IV 06/10 0030 0124 Albuterol Sulfate 3 ML Q4P PRN 06/09 2245 AC INH Ampicillin Sodium/ 0 .STK-MED ONE 06/09 1933 DC Sulbactam Sodium .ROUTE Ampicillin Sodium/ 1,500 MG Q6 06/09 1928 AC 06/10 Sulbactam Sodium IV 0553 Sodium Chloride 100 ML Ampicillin Sodium/ 3,000 MG ONCE ONE 06/09 1745 DC Sulbactam Sodium IV 06/09 1814 Sodium Chloride 100 ML Azithromycin 500 MG ONCE ONE 06/09 1700 DC 06/09 Dextrose/Water 250 ML IV 06/09 1759 1841 Bisacodyl 10 MG DAILY PRN 06/10 1115 AC ME Ceftriaxone Sodium 1,000 MG ONCE ONE 06/10 0030 DC 06/10 IV 06/10 0031 0050 Ceftriaxone Sodium 2,000 MG ONCE ONE 06/09 2330 CAN IV 06/09 2331 Ceftriaxone Sodium 0 .STK-MED ONE 06/09 1720 DC .ROUTE Ceftriaxone Sodium 1,000 MG ONCE ONE 06/09 1700 DC 06/09 IV 06/09 1701 1830 Dexamethasone 4 MG ONCE ONE 06/09 2300 DC 06/10 Dextrose/Water 50 ML IV 06/09 2330 0009 Enoxaparin Sodium 40 MG DAILY 06/10 1000 CAN SC Guaifenesin 10 ML Q6P PRN 06/09 2215 AC PO Ketorolac 30 MG ONCE ONE 06/09 1700 DC 06/09 Tromethamine IV 06/09 1701 1712 Ketorolac 0 .STK-MED ONE 06/09 1627 DC Tromethamine .ROUTE Levetiracetam 1,500 MG Q12 06/09 2200 AC 06/10 N/A 1 UNIT IV 1033 Lidocaine 20 ML ONCE ONE 06/09 1700 DC 06/09 ID 06/09 1701 1712 Lidocaine 0 .STK-MED ONE 06/09 1646 DC .ROUTE Lorazepam 2 MG ONE ONE 06/09 1530 DC 06/09 IV 06/09 1531 1530 Lorazepam 0 .STK-MED ONE 06/09 1525 DC .ROUTE Magnesium Hydroxide 30 ML ONE ONE 06/10 1130 AC PO 06/10 1131 Naloxone HCl 1 MG ONCE ONE 06/09 2115 DC 06/09 IV 06/09 2115 2108 Naloxone HCl 0.4 MG ONCE ONE 06/09 2100 DC 06/09 IV 06/09 210 205 Naloxone HCl 0 .STK-MED ONE 06/09 1740 DC .ROUTE Naloxone HCl 0.4 MG ONCE ONE 06/09 1730 DC 06/09 IV 06/09 1731 1733 Naloxone HCl 0.4 MG ONCE ONE 06/09 1730 DC 06/09 IV 06/09 1731 1737 Naloxone HCl 0 .STK-MED ONE 06/09 1729 DC .ROUTE Nicotine 21 MG DAILY 06/09 1930 AC 06/10 TOP 0131 Nitroglycerin 0.4 MG ONCE ONE 06/09 1530 DC SL 06/09 1531 Pantoprazole Sodium 40 MG DAILY 06/09 1934 AC 06/10 IV 0916 Potassium Chloride 40 MEQ Q13H 06/10 1115 AC Sodium Chloride 1,000 ML IV 06/11 1314 Potassium Chloride 10 MEQ Q1H 06/10 0830 DC 06/10 IV 06/10 0931 1104 Sodium Chloride 1,000 ML BOLUS ONE 06/10 0115 DC 06/10 IV 06/10 0214 0128 Sodium Chloride 1,000 ML BOLUS ONE 06/09 2315 DC 06/09 IV 06/10 0014 2332 Sodium Chloride 500 ML BOLUS ONE 06/09 2100 DC 06/09 IV 06/09 2159 2059 Sodium Chloride 1,000 ML .[id number] 06/09 1915 DC 06/09 IV 06/10 2154 2209 Sodium Chloride 1,000 ML BOLUS ONE 06/09 1730 DC 06/09 IV 06/09 1829 1733 Sodium Chloride 1,000 ML BOLUS ONE 06/09 1730 DC 06/09 IV 06/09 1829 1841 Sodium Chloride 1,000 ML BOLUS ONE 06/09 1530 DC 06/09 IV 06/09 1629 1530 Vancomycin HCl 1,000 MG ONCE ONE 06/09 2330 DC 06/10 Dextrose/Water 250 ML IV 06/10 0029 0242 Review of Systems Review of Systems: No rash. No syncope. No hemoptysis. All other systems were reviewed, and were noted to be negative. 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 Family history is reviewed with the patient. He denies any family history of heart disease or any other medical issues. Psychosocial History Smoking Status: Current Everyday Smoker ETOH Use: denies use Illicit Drug Use: denies illicit drug use Functional Ability ADLs Independent: dressing, eating, toileting, bathing. Ambulation: independent IADLs Independent: shopping, housework, finances, food prep, telephone, transportation , medication admin. Exam & Diagnostic Data Vital Signs and I&O Vital Signs Date Time Temp Pulse Resp B/P B/P Pulse O2 O2 Flow FiO2 Mean Ox Delivery Rate 06/10 0800 98.2 48 16 100/70 99 Nasal 1.0L Cannula 06/10 0800 99 Nasal 1.0L Cannula 06/10 0400 98 Nasal 1.0L Cannula 06/10 0000 96 Nasal 1.0L Cannula 06/10 0000 97.3 45 20 100/70 96 Nasal 1.0L Cannula 06/09 2336 93 Nasal 1.0L Cannula 06/09 2228 Nasal 1.0L Cannula 06/09 2200 99.2 59 17 90/58 98 Room Air 06/09 1957 99.5 78 16 103/65 96 Room Air 06/09 1810 100.7 76 18 113/66 99 Room Air Room Air 06/09 1627 102.2 06/09 1617 102.2 85 15 103/62 97 Room Air Room Air 06/09 1600 97 Room Air Room Air 06/09 1530 100.5 06/09 1504 100.5 103 20 144/62 97 Room Air Room Air Intake & Output 06/10 1600 06/10 0800 06/10 0000 06/09 1600 06/09 0800 06/09 0000 Intake Total 3005 175 Output Total 670 800 Balance 2335 -625 Intake, IV 3005 175 Intake, Oral 0 Number 1 Bowel Movements Output, Urine 670 800 Patient 140 lb 149 lb Weight Weight Bed scale Reported by Patient Measurement Method Physical Exam: Gen: The patient is in no acute distress HEENT: Normal nose, ears, and oropharynx. Pupils equal bilaterally. Conjunctiva normal. Neck: Supple with no JVD, no masses, and no thyromegaly Lungs: Clear to auscultation with normal respiratory effort Heart: RRR, S1, S2, no murmurs. No peripheral edema, 2+ pulses in the lower extremities bilaterally Abdomen: Soft, nontender, no masses. No hepatomegaly. No splenomegaly Extremities: No clubbing or cyanosis. Normal muscle strength in the upper and lower extremities Skin: Normal skin turgor with no skin ulcers or lesions noted. Neuro: Cranial nerves intact. Sensation intact Psych: Alert and oriented x 3 with appropriate affect Labs/Michael Results: Laboratory Tests 06/10 06/10 06/09 0450 0019 2109 Chemistry Sodium (137 - 145 mmol/L) 143 Potassium (3.5 - 5.1 mmol/L) 3.1 L Chloride (98 - 107 mmol/L) 115 H Carbon Dioxide (22 - 30 mmol/L) 18 L Anion Gap (5 - 16) 10 BUN (9 - 20 mg/dL) 12 Creatinine (0.7 - 1.2 mg/dL) 0.6 L Estimated GFR (>60 ml/min) > 60 BUN/Creatinine Ratio (7 - 25 %) 20.0 Lactic Acid (0.7 - 2.1 mmol/L) 1.3 Magnesium (1.6 - 2.3 mg/dL) 1.6 Ammonia (9 - 30 umol/L) 31 H Troponin I (<0.11 ng/ml) < 0.01 < 0.01 Prolactin (3.7 - 17.9 ng/mL) 6.3 Hematology CBC w Diff MAN DIFF ORDERED WBC (4.8 - 10.8 /CUMM) 17.4 H RBC (4.70 - 6.10 /CUMM) 4.05 L Hgb (14.0 - 18.0 G/DL) 12.5 L Hct (42 - 52 %) 37.1 L MCV (80.0 - 94.0 FL) 91.8 MCH (27.0 - 31.0 PG) 30.8 MCHC (33.0 - 37.0 G/DL) 33.6 RDW (11.5 - 14.5 %) 13.8 Plt Count (130 - 400 /CUMM) 123 L MPV (7.4 - 10.4 FL) 8.4 Gran % (42.2 - 75.2 %) 88.0 H Lymphocytes % (20.5 - 51.1 %) 6.6 L Monocytes % (1.7 - 9.3 %) 5.4 Eosinophils % (0 - 5 %) 0 Basophils % (0.0 - 2.0 %) 0 Absolute Granulocytes (1.4 - 6.5 /CUMM) 15.3 H Segmented Neutrophils (42.2 - 75.2 %) 82 H Band Neutrophils (0.0 - 5.0 %) 6 H Absolute Lymphocytes (1.2 - 3.4 /CUMM) 1.1 L Lymphocytes (20.5 - 51.1 %) 8 L Monocytes (1.7 - 9.3 %) 4 Absolute Monocytes (0.10 - 0.60 /CUMM) 0.9 H Absolute Eosinophils (0.0 - 0.7 /CUMM) 0 Absolute Basophils (0.0 - 0.2 /CUMM) 0 Platelet Estimate (ADEQUATE) ADEQUATE Normochromic RBCs VERIFIED Ovalocytes FEW Other Body Source Fld Total RBCs Counted (%) 100 06/09 06/09 1821 1612 Chemistry Lactic Acid Cancelled Toxicology Urine Opiates Screen (>2000 NG/ML) > 4000.00 H Methadone Screen (>300 NG/ML) 54 Barbiturate Screen (>200 NG/ML) 79 Ur Phencyclidine Scrn (>25 NG/ML) < 6.00 Amphetamines Screen (>1000 NG/ML) 115 U Benzodiazepines Scrn (>200 NG/ML) < 85 Urine Cocaine Screen (>300 NG/ML) < 50 Urine Cannabis Screen (>50 NG/ML) > 80.00 H Urines Urine Color (YEL,AMB,STR) YEL Urine Clarity (CLEAR) CLEAR Urine pH (5.0 - 8.0) 6.5 Ur Specific [place] (1.001 - 1.035) 1.020 Urine Protein (NEG,<30 MG/DL) NEG Urine Ketones (NEG) TRACE H Urine Nitrite (NEG) NEG Urine Bilirubin (NEG) NEG Urine Urobilinogen (0.1 - 1.0 EU/dl) 1.0 Ur Leukocyte Esterase (NEG) NEG Ur Microscopic EXAM NOT REQUIRED Urine Hemoglobin (NEG) NEG Urine Glucose (N MG/DL) NEG 06/09 06/09 06/09 1555 1537 1527 Blood Gas pH (7.35 - 7.45 PH) 7.43 pCO2 (35 - 45 TORR) 32 L pO2 (80 - 100 TORR) 71 L HCO3 (21 - 28 MEQ/L) 21 ABG O2 Sat (Measured) (>96.0 %) 94.0 L P-50 (Temp Corrected) N Carboxyhemoglobin (1.5 - 5.0 %) 3.3 O2 Concentration % RA Chemistry Lactic Acid (0.7 - 2.1 mmol/L) 1.8 Miscellaneous Phlebotomy Draw Site RIGHT BRACHIAL Serology Virus Culture Pending 06/09 06/09 1527 1520 Chemistry Sodium (137 - 145 mmol/L) 141 Potassium (3.5 - 5.1 mmol/L) 3.8 Chloride (98 - 107 mmol/L) 102 Carbon Dioxide (22 - 30 mmol/L) 26 Anion Gap (5 - 16) 12 BUN (9 - 20 mg/dL) 21 H Creatinine (0.7 - 1.2 mg/dL) 0.9 Estimated GFR (>60 ml/min) > 60 BUN/Creatinine Ratio (7 - 25 %) 23.3 Glucose (65 - 99 mg/dL) 81 Calcium (8.4 - 10.2 mg/dL) 9.3 Total Bilirubin (0.2 - 1.3 mg/dL) 0.6 AST (17 - 59 U/L) 22 ALT (21 - 72 U/L) 12 L Alkaline Phosphatase (< 127 U/L) 66 Troponin I (<0.11 ng/ml) < 0.01 Total Protein (6.3 - 8.2 g/dL) 7.4 Albumin (3.5 - 5.0 g/dL) 3.9 Globulin (1.9 - 4.2 gm/dL) 3.5 Albumin/Globulin Ratio (1.1 - 2.2 %) 1.1 Lipase (23 - 300 U/L) 46 Hematology CBC w Diff MAN DIFF ORDERED WBC (4.8 - 10.8 /CUMM) 13.6 H RBC (4.70 - 6.10 /CUMM) 4.63 L Hgb (14.0 - 18.0 G/DL) 13.9 L Hct (42 - 52 %) 42.2 MCV (80.0 - 94.0 FL) 91.1 MCH (27.0 - 31.0 PG) 30.0 MCHC (33.0 - 37.0 G/DL) 33.0 RDW (11.5 - 14.5 %) 13.6 Plt Count (130 - 400 /CUMM) 176 MPV (7.4 - 10.4 FL) 7.6 Gran % (42.2 - 75.2 %) 84.3 H Lymphocytes % (20.5 - 51.1 %) 10.7 L Monocytes % (1.7 - 9.3 %) 4.4 Eosinophils % (0 - 5 %) 0.5 Basophils % (0.0 - 2.0 %) 0.1 Absolute Granulocytes (1.4 - 6.5 /CUMM) 11.5 H Segmented Neutrophils (42.2 - 75.2 %) 71 Band Neutrophils (0.0 - 5.0 %) 7 H Absolute Lymphocytes (1.2 - 3.4 /CUMM) 1.5 Lymphocytes (20.5 - 51.1 %) 17 L Monocytes (1.7 - 9.3 %) 5 Absolute Monocytes (0.10 - 0.60 /CUMM) 0.6 Absolute Eosinophils (0.0 - 0.7 /CUMM) 0.1 Absolute Basophils (0.0 - 0.2 /CUMM) 0 Platelet Estimate (ADEQUATE) ADEQUATE Normocytic RBCs VERIFIED Normochromic RBCs VERIFIED Toxicology Valproic Acid (50 - 120 ug/mL) 123.4 H Cancelled Serum Alcohol (<10 MG/DL) < 10.0 06/09 54 Blood Gas pH (7.35 - 7.45 PH) 7.42 pCO2 (35 - 45 TORR) 26 L pO2 (80 - 100 TORR) 90 HCO3 (21 - 28 MEQ/L) 18 L ABG O2 Sat (Measured) (>96.0 %) 96.0 P-50 (Temp Corrected) Y Carboxyhemoglobin (1.5 - 5.0 %) 0.4 L O2 Concentration % 1 LPM Temperature (97.0 - 100.0 FARH) 97.3 O2 Delivery Method N/C Miscellaneous Phlebotomy Draw Site LEFT RADIAL Diagnostic Data EKG Results EKG tracing from 06/10/17 is independently reviewed, and reveals sinus bradycardia at 38 bpm with borderline nonspecific T-wave wave abnormality CXR Results There are ill-defined opacities within the lower lobes, greater on the left. No pleural effusion or pneumothorax. The cardiac silhouette and upper mediastinal contours are normal. No acute osseous finding. Cardiac leads overlie the chest. Other Results Echocardiogram 09/13/16: 1. Minimal aortic sclerosis is present with no valvular stenosis or insufficiency. 2. The mitral valve is anatomically normal. Minimal mitral insufficiency is present. 3. There is no pericardial fluid present. 4. The left ventricular chamber size and systolic function appear normal with no resting wall motion abnormalities. 5. Minimal tricuspid insufficiency is present with no evidence of pulmonary hypertension. CT scan of the abdomen and pelvis: 1. Left lower lobe infiltrate. Small infiltrate/atelectasis at the dependent right lung. No pleural effusion. 2. No acute abnormality CT scan abdomen and pelvis. CT head: Negative Assessment/Plan Assessment/Plan The patient is a 51-year-old male with history of sinus bradycardia and chronic opiate therapy for back pain. He presented with altered mental state exacerbated by pain medications, and aspiration pneumonia. He is noted to have sniffing and sinus bradycardia with heart rate in the 30s and 40s. There are no definite symptoms attributable to the sinus bradycardia, and he has apparently been evaluated in the past for the bradycardia with negative workup. He is noted to be hypokalemic Recommendations: * Treatment of sepsis and aspiration pneumonia as per the medical service * I recommend continued monitoring of the sinus bradycardia with no treatment indicated unless it becomes symptomatic. If he does develop symptomatic sinus bradycaria, he could be treated in the short-term with oral theophylline, with consideration for possible pacemaker placement if the bradycardia does not resolve * Would supplement potassium and magnesium. Consult Acknowledgment - Thank you for your consult request.
--- NOTE | 2017-06-10 13:11 | Cons- Neurology ---
General Information and HPI Consulting Request Date of Consult: 06/10/17 Requested By: Pooja CHAVEZ,Chiki Long History of Present Illness: 51-year-old male with history of chronic pain, anxiety and depression and seizure disorder, on multiple anticonvulsants, came to the emergency department with complaints of chest pain. He was subsequently seen to have tremulous or seizure-like movements and was treated with Ativan and sent to the floor. While on the general medical floor, he became obtunded, necessitating transfer to the intensive care unit. He had a transient fever and a leukocytosis. Chest x-ray shows suspicion for pneumonia In the ICU, he has been fully awake and alert. No seizure activity has been witnessed. Neurology has been asked to assess. Allergies/Medications Allergies: Coded Allergies: Sulfa (Sulfonamide Antibiotics) (Intermediate, HIVES 06/09/17) acetaminophen (From VICODIN) (Intermediate, HIVES 06/09/17) hydrocodone (From VICODIN) (Intermediate, HIVES 06/09/17) tramadol (Intermediate, HIVES 06/09/17) aripiprazole (Intermediate, RASH PER PT. 06/09/17) Home Med List: Amitriptyline HCl 25 MG TABLET 1 TAB PO QPM psychiatric/sleep Dicyclomine Hydrochloride (Bentyl) 10 MG CAPSULE 1 CAP PO TID ABDOMINAL DISCOMFORT Divalproex Sodium (Divalproex Sodium ER) 250 MG TAB.ER.24H 1 TAB PO TID SEIZURES (Reported) Gabapentin 400 MG CAPSULE 3 CAP PO TID SEIZURES (Reported) Levetiracetam (Keppra) 750 MG TABLET 1,500 MG PO BID SEIZURES (Reported) Loperamide HCl (Imodium A-D) 2 MG CAPSULE 1 TAB PO BID PRN DIARRHEA Magnesium Oxide 400 MG TABLET 1 TAB PO BID SUPPLEMENT (Reported) Melatonin 3 MG TABLET 2 TAB PO QHS SLEEP (Reported) Morphine Sulfate 15 MG TABLET 1 TAB PO BID PRN PAIN (Reported) Pantoprazole Sodium 40 MG TABLET.DR 1 TAB PO DAILY GI (Reported) Tizanidine HCl 4 MG TABLET 1 TAB PO QPM MUSCLE RELAXER (Reported) Topiramate (Topamax) 100 MG TABLET 0.5 TAB PO QPM SEIZURES (Reported) Topiramate (Topamax) 100 MG TABLET 2 TAB PO QPM SEIZURES (Reported) Review of Systems Review of Systems: Notable for chronic back pain and recent chest pain. 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 Ambulation: independent IADLs Independent: shopping, housework, finances, food prep, telephone, transportation , medication admin. Exam & Diagnostic Data Vital Signs and I&O Vital Signs Date Time Temp Pulse Resp B/P B/P Pulse O2 O2 Flow FiO2 Mean Ox Delivery Rate 06/10 1200 95 Nasal 1.0L Cannula 06/10 0800 98.2 48 16 100/70 99 Nasal 1.0L Cannula 06/10 0800 99 Nasal 1.0L Cannula 06/10 0400 98 Nasal 1.0L Cannula 06/10 0000 96 Nasal 1.0L Cannula 06/10 0000 97.3 45 20 100/70 96 Nasal 1.0L Cannula 06/09 2336 93 Nasal 1.0L Cannula 06/09 2228 Nasal 1.0L Cannula 06/09 2200 99.2 59 17 90/58 98 Room Air 06/09 1957 99.5 78 16 103/65 96 Room Air 06/09 1810 100.7 76 18 113/66 99 Room Air Room Air 06/09 1627 102.2 06/09 1617 102.2 85 15 103/62 97 Room Air Room Air 06/09 1600 97 Room Air Room Air 06/09 1530 100.5 06/09 1504 100.5 103 20 144/62 97 Room Air Room Air Intake & Output 06/10 1600 06/10 0800 06/10 0000 Intake Total 3005 175 Output Total 670 800 Balance 2335 -625 Intake, IV 3005 175 Intake, Oral 0 Number 1 Bowel Movements Output, Urine 670 800 Patient 140 lb Weight Weight Bed scale Measurement Method Middle-aged, chronically ill-appearing male who was otherwise in no acute distress. The head was normocephalic. Neck was supple without meningismus. He was awake, alert and cooperative. He was oriented to person place and time. He could name the current Pres. Speech was fluent. Pupils are equal. Extraocular movements full. Face is symmetric. Hearing is normal. Tongue was midline. The motor examination showed no gross focal or lateralizing weakness. Deep tendon reflexes were symmetric. Plantar responses were withdrawal. There was no ataxia on [id number] testing. Gait was not evaluated. CAT scan of the head and was unremarkable. Assessment/Plan Assessment: In all likelihood, the patient's altered mental status was due to the benzodiazepines that were administered in the emergency department. Suspicion for active seizure activity is very low. In point of fact, he is maintained on valproic acid, Keppra, topiramate and gabapentin, all of which have anticonvulsant properties. It may be that the gabapentin is on board for his pain and Topamax/Depakote for mood stabilization. Recommendations: The patient will undergo an EEG. A valproic acid level should be ordered. Would try to avoid further benzodiazepines. For the present would continue keppra and depakote/topamax for mood stabilization. Gabapentin considered not critical for seizure prophylaxis. At some point in time his treating physicians should consider a full reevaluation of his polypharmacy. Consult Acknowledgment - Thank you for your consult request.
--- NOTE | 2017-06-10 13:39 | Cons- Psychiatry ---
Psychiatric Consult Date of Consult: 06/10/17 Reason for Consult: Follows at Care History of Present Illness: The patient is a 51 yo single male with a history of seizures, chronic pain, GERD, COPD, and polysubstance abuse presenting with chest pain and admitted to ICU for observation. In the ED, patient was given Ativan for tremor, fever, and seizure history and had an acute change in mental status, which resolved with Narcan treatment. Psych: Patient reports that he had stomach pain on his left side and that is why he came to the hospital. He had Life Alert and used it to call for an ambulance. He reports no recent seizures, no recent change in medications that he knows of, and no recent substance abuse. He has a visiting nurse who helps him with his medications. He feels depressed because of his medical condition and only gets 4 -5 hours of sleep per day. He could not rate his depression. He lives alone in an apartment with 2 cats and has no social support system. He is on disability and food stamps. He denies suicidal ideations, history of suicide attempts, homicidal ideations, auditory/visual hallucinations, paranoia, obsessions, or delusions. Allergies: Coded Allergies: Sulfa (Sulfonamide Antibiotics) (Intermediate, HIVES 06/09/17) acetaminophen (From VICODIN) (Intermediate, HIVES 06/09/17) hydrocodone (From VICODIN) (Intermediate, HIVES 06/09/17) tramadol (Intermediate, HIVES 06/09/17) aripiprazole (Intermediate, RASH PER PT. 06/09/17) Current Medications: Current Medications Sig/Onur Start time Last Medication Dose Route Stop Time Status Admin Acetaminophen 650 MG Q6P PRN 06/09 1929 AC PO Acetaminophen 1,000 MG Q6P PRN 06/09 193 AC IV Acetaminophen 0 .STK-MED ONE 06/09 1537 DC IV Acetaminophen 1,000 MG ONCE ONE 06/09 1530 DC 06/09 N/A 1 UNIT IV 06/09 1544 1530 Acyclovir 650 MG ONCE ONE 06/09 2330 DC 06/10 Dextrose/Water 100 ML IV 06/10 0030 0124 Albuterol Sulfate 3 ML Q4P PRN 06/09 2245 AC INH Ampicillin Sodium/ 0 .STK-MED ONE 06/09 1933 DC Sulbactam Sodium .ROUTE Ampicillin Sodium/ 1,500 MG Q6 06/09 1928 AC 06/10 Sulbactam Sodium IV 1210 Sodium Chloride 100 ML Ampicillin Sodium/ 3,000 MG ONCE ONE 06/09 1745 DC Sulbactam Sodium IV 06/09 1814 Sodium Chloride 100 ML Azithromycin 500 MG ONCE ONE 06/09 1700 DC 06/09 Dextrose/Water 250 ML IV 06/09 1759 1841 Bisacodyl 10 MG DAILY PRN 06/10 1115 AC AZ Ceftriaxone Sodium 1,000 MG ONCE ONE 06/10 0030 DC 06/10 IV 06/10 0031 0050 Ceftriaxone Sodium 2,000 MG ONCE ONE 06/09 2330 CAN IV 06/09 2331 Ceftriaxone Sodium 0 .STK-MED ONE 06/09 1720 DC .ROUTE Ceftriaxone Sodium 1,000 MG ONCE ONE 06/09 1700 DC 06/09 IV 06/09 1701 1830 Dexamethasone 4 MG ONCE ONE 06/09 2300 DC 06/10 Dextrose/Water 50 ML IV 06/09 2330 0009 Enoxaparin Sodium 40 MG DAILY 06/10 1000 CAN SC Guaifenesin 10 ML Q6P PRN 06/09 2215 AC PO Ketorolac 30 MG ONCE ONE 06/09 1700 DC 06/09 Tromethamine IV 06/09 1701 1712 Ketorolac 0 .STK-MED ONE 06/09 1627 DC Tromethamine .ROUTE Levetiracetam 1,500 MG Q12 06/09 2200 AC 06/10 N/A 1 UNIT IV 1033 Lidocaine 20 ML ONCE ONE 06/09 1700 DC 06/09 ID 06/09 1701 1712 Lidocaine 0 .STK-MED ONE 06/09 1646 DC .ROUTE Lorazepam 2 MG ONE ONE 06/09 1530 DC 06/09 IV 06/09 1531 1530 Lorazepam 0 .STK-MED ONE 06/09 1525 DC .ROUTE Magnesium Hydroxide 30 ML ONE ONE 06/10 1130 DC PO 06/10 1131 Magnesium Sulfate 1 GM Q2H 06/10 1215 AC Dextrose/Water 100 ML IV 06/10 1614 Naloxone HCl 1 MG ONCE ONE 06/09 2115 DC 06/09 IV 06/09 211 210 Naloxone HCl 0.4 MG ONCE ONE 06/09 2100 DC 06/09 IV 06/09 2100 205 Naloxone HCl 0 .STK-MED ONE 06/09 1740 DC .ROUTE Naloxone HCl 0.4 MG ONCE ONE 06/09 1730 DC 06/09 IV 06/09 1731 1733 Naloxone HCl 0.4 MG ONCE ONE 06/09 1730 DC 06/09 IV 06/09 1731 1737 Naloxone HCl 0 .STK-MED ONE 06/09 1729 DC .ROUTE Nicotine 21 MG DAILY 06/09 1930 AC 06/10 TOP 0131 Nitroglycerin 0.4 MG ONCE ONE 06/09 1530 DC SL 06/09 1531 Pantoprazole Sodium 40 MG DAILY 06/09 1934 AC 06/10 IV 0916 Potassium Chloride 40 MEQ Q13H 06/10 1115 AC Sodium Chloride 1,000 ML IV 06/11 1314 Potassium Chloride 10 MEQ Q1H 06/10 0830 DC 06/10 IV 06/10 0931 1104 Sodium Chloride 1,000 ML BOLUS ONE 06/10 0115 DC 06/10 IV 06/10 0214 0128 Sodium Chloride 1,000 ML BOLUS ONE 06/09 2315 DC 06/09 IV 06/10 0014 2332 Sodium Chloride 500 ML BOLUS ONE 06/09 2100 DC 06/09 IV 06/09 2159 2059 Sodium Chloride 1,000 ML .[id number] 06/09 1915 DC 06/09 IV 06/10 2154 2209 Sodium Chloride 1,000 ML BOLUS ONE 06/09 1730 DC 06/09 IV 06/09 1829 1733 Sodium Chloride 1,000 ML BOLUS ONE 06/09 1730 DC 06/09 IV 06/09 1829 1841 Sodium Chloride 1,000 ML BOLUS ONE 06/09 1530 DC 06/09 IV 06/09 1629 1530 Vancomycin HCl 1,000 MG ONCE ONE 06/09 2330 DC 06/10 Dextrose/Water 250 ML IV 06/10 0029 0242 Home Medications: Amitriptyline HCl 25 MG TABLET 1 TAB PO QPM psychiatric/sleep Dicyclomine Hydrochloride (Bentyl) 10 MG CAPSULE 1 CAP PO TID ABDOMINAL DISCOMFORT Divalproex Sodium (Divalproex Sodium ER) 250 MG TAB.ER.24H 1 TAB PO TID SEIZURES (Reported) Gabapentin 400 MG CAPSULE 3 CAP PO TID SEIZURES (Reported) Levetiracetam (Keppra) 750 MG TABLET 1,500 MG PO BID SEIZURES (Reported) Loperamide HCl (Imodium A-D) 2 MG CAPSULE 1 TAB PO BID PRN DIARRHEA Magnesium Oxide 400 MG TABLET 1 TAB PO BID SUPPLEMENT (Reported) Melatonin 3 MG TABLET 2 TAB PO QHS SLEEP (Reported) Morphine Sulfate 15 MG TABLET 1 TAB PO BID PRN PAIN (Reported) Pantoprazole Sodium 40 MG TABLET.DR 1 TAB PO DAILY GI (Reported) Tizanidine HCl 4 MG TABLET 1 TAB PO QPM MUSCLE RELAXER (Reported) Topiramate (Topamax) 100 MG TABLET 0.5 TAB PO QPM SEIZURES (Reported) Topiramate (Topamax) 100 MG TABLET 2 TAB PO QPM SEIZURES (Reported) Past History Past Medical History Neurological: seizure EENT: NONE Cardiovascular: NONE Respiratory: COPD Gastrointestinal: GERD, PANCREATITIS Hepatic: NONE Renal: NONE Musculoskeletal: chronic back pain, osteoarthritis, 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 Attends care as needed. Physical Limitations (Interventions): none known other than pain Psychiatric Treatment History Psych Treatment Psychiatric Treatment Yes Inpatient Treatment No Outpatient Treatment Yes Location of Treatment Care in [place], [place] Reason for Treatment Diagnoses of probable major neurocognitive disorder, alcohol use disorder, tobacco use disorder, cocaine use disorder, and antisocial personality disorder. Diagnosis: Diagnoses of probable major neurocognitive disorder, alcohol use disorder, tobacco use disorder, cocaine use disorder, and antisocial personality disorder per Care. Risk Factors: chronic/serious med cond., high anxiety/distress, isolate/no social support, lives alone, male Substance Use/Abuse History Drug Use/Abuse 1 Substances Used/Abused Yes Substance Used/Abused Nicotine First Use Teens Last Used Current How much used/taken 1.5 pack per day How often daily For how long greater than 30 years Route of use smoking Drug Use/Abuse 2 Substances Used/Abused Yes Substance Used/Abused Alcohol First Use 20's Last Used current How much used/taken 1 drink a week How often occasionally Route of use PO Drug Use/Abuse 3 Substances Used/Abused Yes Substance Used/Abused Cocaine Drug Use/Abuse 4 Substances Used/Abused Yes Substance Used/Abused Marijuana Substance Abuse Treatment Comments: Patient does not report any previous substance abuse treatment. Assessment/Plan Mental Status Orientation: Person, Place, Situation Affect: Constricted Speech: Delayed, Mumbled, Slurred Neuro-vegetative: Energy Decreased Mental Status Exam: Patient is lying in bed with hospital attire and closes his eyes intermittently during the interview. Patient is cooperative but looks tired during the interview. His speech was delayed and mumbles, sometimes incomprehensible. Patient is hard of hearing. His thought process is goal directed and linear. He denies suicidal ideations, homicidal ideations, obsessions, paranoia, or delusions. He denies auditory/visual hallucinations. His mood is "depressed". His affect is constricted. His insight and judment is fair. Patient looks tired, closing his eyes intermittently with a delay in his answers. However, he was able to answer questions and he was oriented to person, place, and situation. Lab Results: Laboratory Tests 06/10 06/10 06/09 0450 0016 2109 Chemistry Sodium (137 - 145 mmol/L) 143 Potassium (3.5 - 5.1 mmol/L) 3.1 L Chloride (98 - 107 mmol/L) 115 H Carbon Dioxide (22 - 30 mmol/L) 18 L Anion Gap (5 - 16) 10 BUN (9 - 20 mg/dL) 12 Creatinine (0.7 - 1.2 mg/dL) 0.6 L Estimated GFR (>60 ml/min) > 60 BUN/Creatinine Ratio (7 - 25 %) 20.0 Lactic Acid (0.7 - 2.1 mmol/L) 1.3 Magnesium (1.6 - 2.3 mg/dL) 1.6 Ammonia (9 - 30 umol/L) 31 H Troponin I (<0.11 ng/ml) < 0.01 < 0.01 Prolactin (3.7 - 17.9 ng/mL) 6.3 Hematology CBC w Diff MAN DIFF ORDERED WBC (4.8 - 10.8 /CUMM) 17.4 H RBC (4.70 - 6.10 /CUMM) 4.05 L Hgb (14.0 - 18.0 G/DL) 12.5 L Hct (42 - 52 %) 37.1 L MCV (80.0 - 94.0 FL) 91.8 MCH (27.0 - 31.0 PG) 30.8 MCHC (33.0 - 37.0 G/DL) 33.6 RDW (11.5 - 14.5 %) 13.8 Plt Count (130 - 400 /CUMM) 123 L MPV (7.4 - 10.4 FL) 8.4 Gran % (42.2 - 75.2 %) 88.0 H Lymphocytes % (20.5 - 51.1 %) 6.6 L Monocytes % (1.7 - 9.3 %) 5.4 Eosinophils % (0 - 5 %) 0 Basophils % (0.0 - 2.0 %) 0 Absolute Granulocytes (1.4 - 6.5 /CUMM) 15.3 H Segmented Neutrophils (42.2 - 75.2 %) 82 H Band Neutrophils (0.0 - 5.0 %) 6 H Absolute Lymphocytes (1.2 - 3.4 /CUMM) 1.1 L Lymphocytes (20.5 - 51.1 %) 8 L Monocytes (1.7 - 9.3 %) 4 Absolute Monocytes (0.10 - 0.60 /CUMM) 0.9 H Absolute Eosinophils (0.0 - 0.7 /CUMM) 0 Absolute Basophils (0.0 - 0.2 /CUMM) 0 Platelet Estimate (ADEQUATE) ADEQUATE Normochromic RBCs VERIFIED Ovalocytes FEW Other Body Source Fld Total RBCs Counted (%) 100 06/09 06/09 1821 1612 Chemistry Lactic Acid Cancelled Toxicology Urine Opiates Screen (>2000 NG/ML) > 4000.00 H Methadone Screen (>300 NG/ML) 54 Barbiturate Screen (>200 NG/ML) 79 Ur Phencyclidine Scrn (>25 NG/ML) < 6.00 Amphetamines Screen (>1000 NG/ML) 115 U Benzodiazepines Scrn (>200 NG/ML) < 85 Urine Cocaine Screen (>300 NG/ML) < 50 Urine Cannabis Screen (>50 NG/ML) > 80.00 H Urines Urine Color (YEL,AMB,STR) YEL Urine Clarity (CLEAR) CLEAR Urine pH (5.0 - 8.0) 6.5 Ur Specific [place] (1.001 - 1.035) 1.020 Urine Protein (NEG,<30 MG/DL) NEG Urine Ketones (NEG) TRACE H Urine Nitrite (NEG) NEG Urine Bilirubin (NEG) NEG Urine Urobilinogen (0.1 - 1.0 EU/dl) 1.0 Ur Leukocyte Esterase (NEG) NEG Ur Microscopic EXAM NOT REQUIRED Urine Hemoglobin (NEG) NEG Urine Glucose (N MG/DL) NEG 06/09 06/09 06/09 1555 1537 1527 Blood Gas pH (7.35 - 7.45 PH) 7.43 pCO2 (35 - 45 TORR) 32 L pO2 (80 - 100 TORR) 71 L HCO3 (21 - 28 MEQ/L) 21 ABG O2 Sat (Measured) (>96.0 %) 94.0 L P-50 (Temp Corrected) N Carboxyhemoglobin (1.5 - 5.0 %) 3.3 O2 Concentration % RA Chemistry Lactic Acid (0.7 - 2.1 mmol/L) 1.8 Miscellaneous Phlebotomy Draw Site RIGHT BRACHIAL Serology Virus Culture Pending 06/09 06/09 1527 1520 Chemistry Sodium (137 - 145 mmol/L) 141 Potassium (3.5 - 5.1 mmol/L) 3.8 Chloride (98 - 107 mmol/L) 102 Carbon Dioxide (22 - 30 mmol/L) 26 Anion Gap (5 - 16) 12 BUN (9 - 20 mg/dL) 21 H Creatinine (0.7 - 1.2 mg/dL) 0.9 Estimated GFR (>60 ml/min) > 60 BUN/Creatinine Ratio (7 - 25 %) 23.3 Glucose (65 - 99 mg/dL) 81 Calcium (8.4 - 10.2 mg/dL) 9.3 Total Bilirubin (0.2 - 1.3 mg/dL) 0.6 AST (17 - 59 U/L) 22 ALT (21 - 72 U/L) 12 L Alkaline Phosphatase (< 127 U/L) 66 Troponin I (<0.11 ng/ml) < 0.01 Total Protein (6.3 - 8.2 g/dL) 7.4 Albumin (3.5 - 5.0 g/dL) 3.9 Globulin (1.9 - 4.2 gm/dL) 3.5 Albumin/Globulin Ratio (1.1 - 2.2 %) 1.1 Lipase (23 - 300 U/L) 46 Hematology CBC w Diff MAN DIFF ORDERED WBC (4.8 - 10.8 /CUMM) 13.6 H RBC (4.70 - 6.10 /CUMM) 4.63 L Hgb (14.0 - 18.0 G/DL) 13.9 L Hct (42 - 52 %) 42.2 MCV (80.0 - 94.0 FL) 91.1 MCH (27.0 - 31.0 PG) 30.0 MCHC (33.0 - 37.0 G/DL) 33.0 RDW (11.5 - 14.5 %) 13.6 Plt Count (130 - 400 /CUMM) 176 MPV (7.4 - 10.4 FL) 7.6 Gran % (42.2 - 75.2 %) 84.3 H Lymphocytes % (20.5 - 51.1 %) 10.7 L Monocytes % (1.7 - 9.3 %) 4.4 Eosinophils % (0 - 5 %) 0.5 Basophils % (0.0 - 2.0 %) 0.1 Absolute Granulocytes (1.4 - 6.5 /CUMM) 11.5 H Segmented Neutrophils (42.2 - 75.2 %) 71 Band Neutrophils (0.0 - 5.0 %) 7 H Absolute Lymphocytes (1.2 - 3.4 /CUMM) 1.5 Lymphocytes (20.5 - 51.1 %) 17 L Monocytes (1.7 - 9.3 %) 5 Absolute Monocytes (0.10 - 0.60 /CUMM) 0.6 Absolute Eosinophils (0.0 - 0.7 /CUMM) 0.1 Absolute Basophils (0.0 - 0.2 /CUMM) 0 Platelet Estimate (ADEQUATE) ADEQUATE Normocytic RBCs VERIFIED Normochromic RBCs VERIFIED Toxicology Valproic Acid (50 - 120 ug/mL) 123.4 H Cancelled Serum Alcohol (<10 MG/DL) < 10.0 Diffential Diagnosis: Previous psychiatric diagnoses of probable major neurocognitive disorder, alcohol use disorder, tobacco use disorder, cocaine use disorder, and antisocial personality disorder. Impression: Patient is a 51 yo single male with a history of seizures, chronic pain, GERD, COPD, and polysubstance abuse presenting with chest pain and admitted to ICU for observation after exhibiting tremors, fever, altered mental status, and labile heart rate and blood pressure. Urine toxicology was positive for opiates and cannabis. Also, urine showed supratherapeutic levels of valproic acid. Patient denies suicidal ideations, homicidal ideations, auditory/visual hallucinations, paranoia, obsessions, or delusions. Patient lives alone with limited to no social support and may benefit from socialization. Provisional Treatment Plan: 1. For supratherapeutic valproic acid levels, recommend measuring valproic acid level at trough. Please notify his prescriber, Dr. Rishi Kang, a neurologist at [facility], about supratherapeutic valproic acid levels. 2. Follow up with Dr. Cirilo Lambert, pain management, for management of pain medications. 3. Continue medications as prescribed. There are no indications for psychiatric medications/interventions at this time. 4. Psychiatry inpatient consult team signing off. Thank you for letting us see this consult.
[2017-06-10] MEDS ORDERED: DIVALPROEX SOD250 M3 PO (14:48)
[2017-06-10] MEDS ORDERED: TOPIRAMATE50 M1 PO (14:51)
[2017-06-10] MEDS ORDERED: TOPAMAX50 M1 PO ×2 (14:52)
[2017-06-10 16:00] VITALS: BP 110/70
[2017-06-10 23:16] VITALS: BP 102/64
[2017-06-11 05:26] LABS: ABSOLUTE BASOPHIL COUNT 0 /CUMM (0.0-0.2); ABSOLUTE EOSINOPHIL COUNT 0 /CUMM (0.0-0.7); ABSOLUTE GRANULOCYTE CT 11.7 /CUMM (1.4-6.5); ABSOLUTE LYMPH COUNT 1.4 /CUMM (1.2-3.4); ABSOLUTE MONOCYTE COUNT 0.7 /CUMM (0.10-0.60); BASOPHIL % 0.2 % (0.0-2.0); EOSINOPHIL % 0 % (0-5); GRANULOCYTE % 84.6 % (42.2-75.2); HEMATOCRIT 38.3 % (42-52); MEAN CORPUSCULAR HGB CONC 34.3 G/DL (33.0-37.0); MEAN CORPUSCULAR VOLUME 90.4 FL (80.0-94.0); MEAN PLATELET VOLUME 8.6 FL (7.4-10.4); PLATELET COUNT 153 /CUMM (130-400); RBC DISTRIBUTION WIDTH 13.6 % (11.5-14.5); RED BLOOD CELL CT 4.24 /CUMM (4.70-6.10); WHITE BLOOD CELL COUNT 13.8 /CUMM (4.8-10.8)
--- NOTE | 2017-06-11 07:12 | PN- Resident CRCU ---
Subjective HPI/CRCU Issues: Sepsis AMS 24 Hour Events: No acute events overnight. Patient is alert oriented 3. Reports cough, lower abdominal pain and multiple bowel movements since yesterday. Patient complains of burning urination for past several months UA obtained was negative urine culture does not show any growth. Tmax 98 Heart rate ranging 50s to 40s Sinus rhythm to sinus bradycardia Respiratory rate 18 to 20s Blood pressure ranging 100s to 120s/ 70s to 60s. Oxygen saturation 99% on room air [place] has been discontinued yesterday adequate urine output H/H stable, with count 15.3 WBC count decreased to 13.8 mild persistent bandemia increasing to 13 patient is currently on Unasyn Blood cultures no growth so far urine culture no growth so far Urine antigen strep and Legionella negative Sputum culture PENDING RECEIPT upper resp nares culture surveillance MRSA Valproic acid level 36.8 Amitriptyline/nortriptyline level pending Objective Vital Signs & I&O Last 8 Hrs of Vitals and I&O: Intake & Output 06/11 1600 Intake Total Output Total Balance Patient 141 lb Weight Exam General Appearance: alert, awake, comfortable Head: atraumatic Neck: normal inspection Cardiovascular: bradycardia Gastrointestinal: lower abd pain Extremities: no edema Current Medications: Current Medications Sig/Onur Start time Last Medication Dose Route Stop Time Status Admin Acetaminophen 650 MG Q6P PRN 06/09 1930 AC PO Acetaminophen 1,000 MG Q6P PRN 06/09 1930 AC IV Albuterol Sulfate 3 ML Q4P PRN 06/09 2245 AC INH Ampicillin Sodium/ 1,500 MG Q6 06/09 1928 AC 06/11 Sulbactam Sodium IV 0531 Sodium Chloride 100 ML Bisacodyl 10 MG DAILY PRN 06/10 1115 DC MD Divalproex Sodium 750 MG TID 06/11 1000 DC 06/11 PO 0917 Divalproex Sodium 750 MG BID 06/11 1000 AC PO Gabapentin 800 MG TID 06/10 1600 AC 06/11 PO 0917 Guaifenesin 10 ML Q6P PRN 06/09 2215 AC PO Levetiracetam 1,500 MG BID 06/10 2200 AC 06/11 PO 0917 Levetiracetam 1,500 MG Q12 06/09 2200 DC 06/10 N/A 1 UNIT IV 1033 Magnesium Hydroxide 30 ML ONE ONE 06/10 1130 DC PO 06/10 1131 Magnesium Sulfate 1 GM Q2H 06/10 1215 DC 06/10 Dextrose/Water 100 ML IV 06/10 1614 1500 Nicotine 21 MG DAILY 06/09 1930 AC 06/11 TOP 0917 Pantoprazole Sodium 40 MG DAILY 06/09 1934 AC 06/11 IV 0917 Polyethylene Glycol 17 GM DAILY 06/11 1000 CAN PO Potassium Chloride 40 MEQ ONCE ONE 06/11 0930 DC 06/11 PO 06/11 0931 1004 Potassium Chloride 40 MEQ Q13H 06/10 1115 DC 06/11 Sodium Chloride 1,000 ML IV 06/11 1314 0358 Potassium Phosphate 15 mMol ONE ONE 06/11 0700 AC 06/11 Sodium Chloride 250 ML IV 06/11 1104 0822 Sodium Chloride 1,000 ML .[id number] 06/09 1915 DC 06/09 IV 06/10 2154 220 Topiramate 100 MG QAM 06/11 1000 AC 06/11 PO 0917 Topiramate 150 MG QPM 06/10 2199 AC 06/10 PO 2117 Impression/Plan Impression/Problem List Impression: The patient is 51-year-old man with past medical history of GERD, seizures, chronic back pain status post neurostimulator and on chronic opiate therapy. Patient has a lifeline and called EMS for left-sided chest pain. In ED patient became lethargic only responsive to painful stimuli after receiving IV Ativan. Vitals on presentation Tmax 102.2, HR 80-100's, BP 103/65, sats 99% RA -WBC 13.6, bands 7, BUN 21, creat 0.9, lactic acid 1.8, trop neg, lipase normal. UA normal. utox see HPI -Rapid flu swab negative -CXR: ill defined bibasilar opacities suggestive of pneumonia. -Head CT: no acute pathology. -CT CAP: left lower lobe infiltrate, small infiltrate/atelectasis at dependent right lung. Hemangioma right lobe of liver unchanged. Large volume of stool throughout colon. Degenerative spondylosis, neural stimulator probe central spinal canal, catheter at lower thoracic spine. -EKG: baseline artifact being read as Afib, but appears sinus. -Echo (2017): EF 55-60%. The pt is currently being treated and evaluated for following conditions #AMS The patient initially presented with sepsis-like picture (see below) with left lower lobe infiltrate suspicious for pneumonia. In ED patient received Ativan and became lethargic and unresponsive requiring Narcan. The possible etiologies of altered mental status included meningitis/ encephalitis with the presentation of fever, leukocytosis bandemia and tachycardia along with h/o neurostimulator. Medication-induced considering patient is on chronic opiate therapy for chronic back pain along with benzodiazepine administration in the ED. Of note patient is also taking a tricyclic antidepressant amitryptaline, Overdose also needs to be considered. Seizure with post-ictal state is also a possibility. -Improving altered mental status with no meningeal signs along with resolution of fever makes meningitis/encephalitis less likely - Seizure with post-ictal state again it is a possibility though less likely. No clinical seizure has been noted since admission and the patient is being maintained on valproic acid, Keppra, topiramate and gabapentin -Most likely cause of AMS is medication induced secondary to narcotics and ativan #Sepsis 2/2 left lower lobe aspiration pneumonia vs meningitis The patient presented sudden onset pleuritic chest pain along with with fever, tachycardia, later became hypotensive as well, Leukocytosis, bandemia, bibasilar densities on chest x-ray with CT showing left lower infiltrate. See above meningitis was a possibility though less likely in setting of resolving altered mental status. Patient received empirical therapy with ceftriaxone, vancomycin, acyclovir and Decadron yesterday -Monitor fever and WBC curve, WBC count is trending up and can be secondary to Decadron administration, bandemia worsening -Continue Unasyn -Urinary leigenella and strep pneumo antigen negative -Follow blood cultures, urine cultures and sputum cultures. #History of seizures -Consider EEG -Continue Keppra -Continue gabapentin 800 mg 3 times a day -Continue Topamax -Valproic acid level 36.8, 750 MG valproic acid twice a day instead of TID for now #History of depression Amitryptaline on hold will resume after checking the level #History of chronic back pain on narcotics -Watch for excessive sedation -Avoid benzodiazepines #Sinus bradycardia -Continued monitoring of the sinus bradycardia with no treatment indicated unless it becomes symptomatic -Consider short-term with oral theophylline if symptomatic -Patient is candidate for pacemaker placement cardiology on board #Constipation-Resolved Patient complaining of lower abdominal pain CT scan positive for Large volume of stool throughout colon. Most likely secondary to opiates -Patient received MiraLAX, milk of magnesia and Docusate suppository, he has been having multiple bowel movements since then. #Hypokalemia Monitor and replete aggressively #Upper resp nares culture surveillance MRSA -Contact isolation FC/DVT prophylaxis with Lovenox/ after swallow eval patient's diet has been advanced to thin liquids and ground solids Problem List: 1. Seizure disorder Pain Ratin Tomorrow's Labs & Rationales: cbc Plan DVT/Prophylaxis: mechanical, pharmacological
[2017-06-11 08:00] VITALS: BP 117/72
--- NOTE | 2017-06-11 09:45 | PN- CRCU ---
Subjective HPI/Critical Care Issues: Doing well afebrile fatigue Still has abd pain Objective Current Medications: Current Medications Sig/Onur Start time Last Medication Dose Route Stop Time Status Admin Acetaminophen 650 MG Q6P PRN 06/09 193 AC PO Acetaminophen 1,000 MG Q6P PRN 06/09 193 AC IV Albuterol Sulfate 3 ML Q4P PRN 06/09 2245 AC INH Ampicillin Sodium/ 1,500 MG Q6 06/09 1928 AC 06/11 Sulbactam Sodium IV 0531 Sodium Chloride 100 ML Bisacodyl 10 MG DAILY PRN 06/10 1115 DC MI Divalproex Sodium 750 MG TID 06/11 1000 DC 06/11 PO 0917 Divalproex Sodium 750 MG BID 06/11 1000 UNVr PO Gabapentin 800 MG TID 06/10 1600 AC 06/11 PO 0917 Guaifenesin 10 ML Q6P PRN 06/09 221 AC PO Levetiracetam 1,500 MG BID 06/10 2199 AC 06/11 PO 0917 Levetiracetam 1,500 MG Q12 06/09 2200 DC 06/10 N/A 1 UNIT IV 1033 Magnesium Hydroxide 30 ML ONE ONE 06/10 1130 DC PO 06/10 1131 Magnesium Sulfate 1 GM Q2H 06/10 1215 DC 06/10 Dextrose/Water 100 ML IV 06/10 1614 1500 Nicotine 21 MG DAILY 06/09 193 AC 06/11 TOP 0917 Pantoprazole Sodium 40 MG DAILY 06/09 193 AC 06/11 IV 0917 Polyethylene Glycol 17 GM DAILY 06/11 1000 CAN PO Potassium Chloride 40 MEQ ONCE ONE 06/11 0930 UNVr PO 06/11 0931 Potassium Chloride 40 MEQ Q13H 06/10 1115 DC 06/11 Sodium Chloride 1,000 ML IV 06/11 1314 0358 Potassium Chloride 10 MEQ Q1H 06/10 0830 DC 06/10 IV 06/10 0931 1104 Potassium Phosphate 15 mMol ONE ONE 06/11 0700 AC 06/11 Sodium Chloride 250 ML IV 06/11 1104 0822 Sodium Chloride 1,000 ML .[id number] 06/09 1915 DC 06/09 IV 06/10 2154 2209 Topiramate 100 MG QAM 06/11 1000 AC 06/11 PO 0917 Topiramate 150 MG QPM 06/10 2200 AC 06/10 PO 2118 Vital Signs & I&O Last 24 Hrs of Vitals and I&O: Vital Signs Date Time Temp Pulse Resp B/P B/P Pulse O2 O2 Flow FiO2 Mean Ox Delivery Rate 06/11 0800 98.8 38 24 117/72 99 Room Air 06/11 0400 97 Room Air 06/11 0000 99 Room Air 06/10 2316 98.2 46 21 102/64 99 Room Air 06/10 2000 98 Room Air 06/10 1900 96 Room Air Room Air 06/10 1600 98.3 51 18 110/70 98 Room Air 06/10 1600 98 Room Air 06/10 1343 99 Room Air Room Air 06/10 1200 95 Nasal 1.0L Cannula Intake & Output 06/11 1600 06/11 0800 06/11 0000 Intake Total 833 1096 Output Total 975 250 Balance -142 846 Intake, IV 833 756 Intake, Oral 340 Number 2 1 Bowel Movements Output, Urine 975 250 Patient 141 lb Weight Impression/Plan Impression/Plan Impression/Plan: General Appearance: alert, awake and oriented Other Physical Findings: Skin no rash. HEENT negative. Neck supple with no adenopathy. Lungs clear. Heart regular rhythm with no murmur. Abdomen is soft, mildly tender on palpation over the lower abdomen, with no guarding or rebound, with positive bowel sounds. Back no CVA tenderness. Extremities no cyanosis, clubbing or edema; right hip neurostimulator in place with no inflammation at the site. Neuro is without focality. Valdez catheter is in place. Pt with multiple issues as noted above comes in with REsolving fever with altered mental status (pt has been on narcotics and had received ativan) Prob Pneumonia left lower lobe wit pleuritic pain Improving altered mental status with no neck stiffness etc, prob related to poly pharmacy No clinical seizure noted since admission but pt has sig history of seizure Sinus ayde with electrolyte abnormality Chronic pain syndrome on narcotics with neurostimulator with cath at lower thoracic spine REC Cont unasyn and ID to follow Rpt cxr Sig ayde, Check ekg for now Resume out pt seizure meds HOld amitryptaline DC ivf Ok to the floor
--- NOTE | 2017-06-11 10:49 | ECHOCARDIOGRAM REPORT ---
KARLA PATTON Age: 51 : 1965 Gender: M Exam Date: 06/10/2017 11:36 Exam Location: [facility] Ht (in): 68 Wt (lb): 140 BSA: 1.74 BP: 105 / 66 Ordering Physician: Jaida Dorado MD Referring Physician: Jaida Dorado MD Technologist: Cornelio Khalil MAGEN Room Number: [id number] Indications: Arrhythmia Rhythm: Sinus Technical Quality: Fair FINDINGS Left Ventricle Normal size left ventricle. No obvious regional wall motion abnormalities. Normal left ventricular ejection fraction estimated at 55-60%. Right Ventricle Normal right ventricular size and function. Right Atrium Normal right atrial size. Left Atrium Left atrial size at the upper limits of normal. Mitral Valve Structurally normal mitral valve. Trace mitral regurgitation. Aortic Valve Trileaflet aortic valve. Focal thickening of the aortic valve cusps. No aortic stenosis. No aortic regurgitation. Tricuspid Valve Structurally normal tricuspid valve. Trace tricuspid regurgitation. Pulmonic Valve Structurally normal pulmonic valve. Pericardium No pericardial effusion. Great Vessels Normal size aortic root and proximal ascending aorta. CONCLUSIONS 1. Minimal aortic sclerosis is present with no valvular stenosis or insufficiency. 2. The mitral valve is normal with minimal mitral insufficiency present. 3. THere is no pericardial fluid detected. 4. The left ventricular chamber size and systolic function appear normal with no resting wall motion abnormalities. 5. Minimal tricuspid insufficiency is present with no evidence of pulmonary hypertension. 6. Since the prior study there has been no change. Tal Espinosa M.D. (Electronically Signed) Final Date: 11 June 2017 10:48 MEASUREMENTS (Male / Female) Normal Values 2D ECHO LV Diastolic Diameter PLAX 5.3 cm 4.2 - 5.9 / 3.9 - 5.3 cm LV Systolic Diameter PLAX 3.3 cm 2.1 - 4.0 cm LV Fractional Shortening PLAX 37.7 % 25 - 46 % LV Ejection Fraction 2D Teich 67.4 % IVS Diastolic Thickness 0.9 cm LVPW Diastolic Thickness 0.8 cm LV Relative Wall Thickness 0.3 RV Internal Dim ED PLAX 2.6 cm 1.9 - 3.8 cm LVOT Diameter 2.2 cm Aortic Root Diameter 3.4 cm LA Systolic Diameter LX 3.3 cm 3.0 - 4.0 / 2.7 - 3.8 cm DOPPLER AV Peak Velocity 148.0 cm/s AV Peak Gradient 8.8 mmHg AV Mean Velocity 101.0 cm/s AV Mean Gradient 5.0 mmHg AV Velocity Time Integral 35.0 cm LVOT Peak Velocity 94.7 cm/s LVOT Peak Gradient 3.6 mmHg LVOT Mean Velocity 59.5 cm/s LVOT Mean Gradient 2.0 mmHg LVOT Velocity Time Integral 25.7 cm LVOT Stroke Volume 97.7 cm AV Area Cont Eq vti 2.8 cm AV Area Cont Eq pk 2.4 cm MV Peak Velocity 82.7 cm/s MV Peak Gradient 2.7 mmHg MV Mean Velocity 44.5 cm/s MV Mean Gradient 1.0 mmHg Mitral E Point Velocity 95.8 cm/s Mitral A Point Velocity 29.6 cm/s Mitral E to A Ratio 3.2 MV PHT Velocity 88.2 cm/s MV Deceleration Desha 324.0 cm/s MV Pressure Half Time 81.7 ms MV Area PHT 2.7 cm MV Deceleration Time 218.0 ms PV Peak Velocity 78.6 cm/s PV Peak Gradient 2.5 mmHg PV Mean Velocity 55.0 cm/s PV Mean Gradient 1.0 mmHg PV Velocity Time Integral 18.2 cm LV E' Lateral Velocity 11.6 cm/s Mitral E to LV E' Lateral Ratio 8.3 LV E' Septal Velocity 10.9 cm/s Mitral E to LV E' Septal Ratio 8.8
--- NOTE | 2017-06-11 11:24 | PN- Infect Dx ---
Subjective Subjective: Afebrile. He continues to be in sinus bradycardia. He complains of left lower quadrant/suprapubic discomfort. He also notes a cough, which is nonproductive, with no further chest pain or shortness of breath. Objective Last 24 Hrs of Vital Signs/I&O Vital Signs Date Time Temp Pulse Resp B/P B/P Pulse O2 O2 Flow FiO2 Mean Ox Delivery Rate 06/11 08 98.8 38 24 117/72 99 Room Air 06/11 0400 97 Room Air 06/11 0000 99 Room Air 06/10 2316 98.2 46 21 102/64 99 Room Air 06/10 2000 98 Room Air 06/10 1900 96 Room Air Room Air 06/10 1600 98.3 51 18 110/70 98 Room Air 06/10 1600 98 Room Air 06/10 1343 99 Room Air Room Air 06/10 1200 95 Nasal 1.0L Cannula Intake & Output 06/11 1600 06/11 0800 06/11 0000 Intake Total 833 1096 Output Total 975 250 Balance -142 846 Intake, IV 833 756 Intake, Oral 340 Number 2 1 Bowel Movements Output, Urine 975 250 Patient 141 lb Weight Physical Exam Other Physical Findings: He appears comfortable in no acute distress Lungs are clear Heart regular rhythm with no murmur Abdomen is soft, tender on palpation of the left lower quadrant and suprapubic area, with positive bowel sounds; no guarding but with questionable rebound Extremities no cyanosis, clubbing or edema Results Last 24 Hours of Lab Results: Laboratory Tests 06/11 Chemistry Sodium (137 - 145 mmol/L) 138 Potassium (3.5 - 5.1 mmol/L) 3.6 Chloride (98 - 107 mmol/L) 111 H Carbon Dioxide (22 - 30 mmol/L) 21 L Anion Gap (5 - 16) 7 BUN (9 - 20 mg/dL) 15 Creatinine (0.7 - 1.2 mg/dL) 0.7 Estimated GFR (>60 ml/min) > 60 Glucose (65 - 99 mg/dL) 89 Calcium (8.4 - 10.2 mg/dL) 8.5 Phosphorus (2.5 - 4.5 mg/dL) 2.0 L Magnesium (1.6 - 2.3 mg/dL) 2.0 Total Bilirubin (0.2 - 1.3 mg/dL) 0.5 AST (17 - 59 U/L) 28 ALT (21 - 72 U/L) 15 L Albumin (3.5 - 5.0 g/dL) 2.5 L Hematology CBC w Diff MAN DIFF ORDERED WBC (4.8 - 10.8 /CUMM) 13.8 H RBC (4.70 - 6.10 /CUMM) 4.24 L Hgb (14.0 - 18.0 G/DL) 13.1 L Hct (42 - 52 %) 38.3 L MCV (80.0 - 94.0 FL) 90.4 MCH (27.0 - 31.0 PG) 31.0 MCHC (33.0 - 37.0 G/DL) 34.3 RDW (11.5 - 14.5 %) 13.6 Plt Count (130 - 400 /CUMM) 153 MPV (7.4 - 10.4 FL) 8.6 Gran % (42.2 - 75.2 %) 84.6 H Lymphocytes % (20.5 - 51.1 %) 10.2 L Monocytes % (1.7 - 9.3 %) 5.0 Eosinophils % (0 - 5 %) 0 Basophils % (0.0 - 2.0 %) 0.2 Absolute Granulocytes (1.4 - 6.5 /CUMM) 11.7 H Segmented Neutrophils (42.2 - 75.2 %) 70 Band Neutrophils (0.0 - 5.0 %) 13 H Absolute Lymphocytes (1.2 - 3.4 /CUMM) 1.4 Lymphocytes (20.5 - 51.1 %) 11 L Monocytes (1.7 - 9.3 %) 5 Absolute Monocytes (0.10 - 0.60 /CUMM) 0.7 H Eosinophils (0 - 5.0 %) 1 Absolute Eosinophils (0.0 - 0.7 /CUMM) 0 Absolute Basophils (0.0 - 0.2 /CUMM) 0 Platelet Estimate (ADEQUATE) ADEQUATE Normocytic RBCs VERIFIED Normochromic RBCs VERIFIED Toxicology Valproic Acid (50 - 120 ug/mL) 36.8 L Amitriptyline Pending Amitriptyline&Nortrip Pending Nortriptyline Pending Last 24 Hours of Michael Results: Blood cultures June 09 negative Urine culture June 09 negative Urine strep pneumo antigen and Legionella antigen June 10 negative Assessment/Plan ID Impression: Overall improved with no further fevers and with white blood cell count decreasing on Unasyn Day 2 of treatment for presumed aspiration pneumonia, with bibasilar densities on his chest x-ray and CT of the chest. The etiology of his lower abdominal discomfort is unclear, with the normal CT of the abdomen and pelvis, and it could be secondary to muscle strain related to his cough. His sinus bradycardia persists and he apparently will require a pacemaker, which can be pursued as his blood cultures remain negative. Suggestion: 1. Continue Unasyn Gwen Stephenson MD will be covering until June 21
--- NOTE | 2017-06-11 12:19 | Transfer of Care Summary ---
Hospital Course Course Hospital Course: Reason for ICU transfer: AMS HPI: The patient is 51-year-old man with past medical history of GERD, seizures, chronic back pain status post neurostimulator and on chronic opiate therapy. Patient has a lifeline and called EMS for left-sided chest pain. In ED patient became lethargic only responsive to painful stimuli after receiving IV Ativan. Vitals on presentation Tmax 102.2, HR 80-100's, BP 103/65, sats 99% RA -WBC 13.6, bands 7, BUN 21, creat 0.9, lactic acid 1.8, trop neg, lipase normal. UA normal. utox see HPI -Rapid flu swab negative -CXR: ill defined bibasilar opacities suggestive of pneumonia. -Head CT: no acute pathology. -CT CAP: left lower lobe infiltrate, small infiltrate/atelectasis at dependent right lung. Hemangioma right lobe of liver unchanged. Large volume of stool throughout colon. Degenerative spondylosis, neural stimulator probe central spinal canal, catheter at lower thoracic spine. -EKG: baseline artifact being read as Afib, but appears sinus. -Echo (2017): EF 55-60%. Interval Events He was initially admitted to general medicine floor. Later Rapid response was called when nurse on the medical floor noted that patient is obtunded and not responsive to verbal or painful stimuli. He was afebrile, HR 80's, BP 90/50, accucheck 111, sats 95% RA. EKG showed sinus rhythm, no acute changes. He was maintaining his airway. Narcan x 2 doses (1.4 mg) given with minimal response, patient was noted to have twitching movement of upper extremities. No nuchal rigiditiy.He was transferred him to ICU for closer monitoring. IV fluid bolus and IV keppra 1500 mg given enroute. While in the ICU, patient was having fluctuating levels of responsiveness, was hypotensive to SBP 80's that responded to IV fluids. There was concern for meningitis. LP was not done overnight and pt was started pm empiric IV antibiotics and dexamethasone. Later in the night patient became bradycardic to 30-40's. Dr. Espinosa was notified and patient is known to have bradycardia, outpatient work up so far has been negative Since the night of admission patient has been alert and oriented 3, with overall improvement in symptoms. -He is currently being treated and evaluated for following conditions #AMS The patient initially presented with sepsis-like picture (see below) with left lower lobe infiltrate suspicious for pneumonia. In ED patient received Ativan and became lethargic and unresponsive requiring Narcan. -The possible etiologies of altered mental status included meningitis/ encephalitis with the presentation of fever, leukocytosis bandemia and tachycardia along with h/o neurostimulator. Improving altered mental status with no meningeal signs along with resolution of fever makes meningitis/encephalitis less likely -Seizure with post-ictal state is also a possibility. Though less likely. No clinical seizure has been noted since admission and the patient is being maintained on valproic acid, Keppra, topiramate and gabapentin -Medication-induced considering patient is on chronic opiate therapy for chronic back pain along with benzodiazepine administration in the ED. It is most likely explainantion of AMS. Of note patient is also taking a tricyclic antidepressant amitryptaline, Overdose also need to be considered. #Sepsis 2/2 left lower lobe aspiration pneumonia vs meningitis The patient presented sudden onset pleuritic chest pain along with with fever, tachycardia, later became hypotensive as well, Leukocytosis, bandemia, bibasilar densities on chest x-ray with CT showing left lower infiltrate. Urinary leigenella and strep pneumo antigen negative See above meningitis was a possibility though less likely in setting of resolving altered mental status. Patient received empirical therapy with ceftriaxone, vancomycin, acyclovir and Decadron -Monitoring fever and WBC curve, WBC count WNL no bands -Continue Unasyn and follow blood cultures, urine cultures and sputum cultures. #History of seizures -EEG pending -Continue Keppra, gabapentin 800 mg 3 times a day and Topamax -Valproic acid level 36.8, 750 MG valproic acid twice a day instead of TID for now #History of depression Amitryptaline on hold, Resume after checking the level #History of chronic back pain on narcotics -Watch for excessive sedation -Avoid benzodiazepines #Sinus bradycardia -Continue telemetry monitoring, atropine at bedside -Consider short-term with oral theophylline if symptomatic -Patient is candidate for pacemaker placement cardiology on board for placement on wednesday #Constipation-Resolved Patient complaining of lower abdominal pain CT scan positive for Large volume of stool throughout colon. Most likely secondary to opiates After recieving MiraLAX, milk of magnesia and Docusate suppository, he had multiple bowel movements intially and had 2 BM since yesterday. #Hypokalemia -Monitor and replete aggressively #Upper resp nares culture surveillance MRSA -Contact isolation Mechanical ventilation: no NIPPV: no Antibiotics: Patient received empirical therapy with ceftriaxone, vancomycin, acyclovir. Currently on Unasyn day 3. Things to be followed up -F/U EEG -F/U Amitryptaline level, resume accordingly -F/U pancultures -F/U K and Phos levels -NPO on wednesday midnight for placement of pacemaker with Dr. Duvall secondary to bradycardia cardiology on board -F/U ESR on 06/14 Nutrition After swallow eval patient's diet has been advanced to thin liquids and ground solids DVT prophylaxis with Alps and Lovenox CODE STATUS FC Assessment/Plan: SEE ABOVE
--- NOTE | 2017-06-11 13:49 | RADIOLOGY REPORT ---
EXAMINATION: XR PORTABLE CHEST CLINICAL INFORMATION: Aspiration pneumonia. For follow up. COMPARISON: Chest done on 06/09/2017. TECHNIQUE: Portable frontal view of the chest was obtained. FINDINGS: Previously identified airspace disease at left lower lobe of the lung shows interval improvement without resolution. The remainder of the lung dowd remain clear. The cardiomediastinal silhouette remains within normal limits. There is no pleural effusion or pneumothorax present, unchanged. Likely old nonunited fracture is noted at lateral end of the right clavicle. IMPRESSION: Interval improvement of left lower lobar airspace disease without resolution since 06/09/2017. Continued follow up to resolution is recommended.
--- NOTE | 2017-06-11 15:53 | PN- Cardiology ---
Subjective Subjective: The patient is awake and alert with no specific cardiac complaints. He remains intermittently bradycardic with heart rates between the high 30's and the 50s. There are relatively frequent episodes of junctional bradycardia noted as well with periods of ventricular ectopy. Objective Vital Signs and I&Os Vital Signs Date Time Temp Pulse Resp B/P B/P Pulse O2 O2 Flow FiO2 Mean Ox Delivery Rate 06/11 1214 99 Room Air Room Air 06/11 0800 98.8 38 24 117/72 99 Room Air 06/11 0400 97 Room Air 06/11 0000 99 Room Air 06/10 2316 98.2 46 21 102/64 99 Room Air 06/10 2000 98 Room Air 06/10 1900 96 Room Air Room Air 06/10 1600 98.3 51 18 110/70 98 Room Air 06/10 1600 98 Room Air Intake & Output 06/11 1600 06/11 0800 06/11 0000 06/10 1600 06/10 0800 06/10 0000 Intake Total 876 981 5973 1230 3005 175 Output Total 500 975 250 310 670 800 Balance 250 -142 060 091 2794 -625 Intake, IV 350 833 874 618 1539 175 Intake, Oral 400 340 240 0 Number 3 2 1 1 Bowel Movements Output, Urine 500 975 250 310 670 800 Patient 141 lb 140 lb Weight Weight Bed scale Measurement Method Physical Exam: Physical Exam General Appearance Cooperative, No Acute Distress, alert Skin Normal HEENT Atraumatic, EOMI, Mucous Membr. moist/pink, Pupils mid dilated, repond to light Cardiovascular Regular Rate, Normal S1, Normal S2, 1/6 systolic murmur Lungs Clear bilaterally to auscultation and percussion Abdomen Soft, No Tenderness Neurological Grossly non focal Extremities No Edema Current Medications: Current Medications Sig/Onur Start time Last Medication Dose Route Stop Time Status Admin Acetaminophen 650 MG Q6P PRN 06/09 1929 AC PO Acetaminophen 1,000 MG Q6P PRN 06/09 1929 AC IV Albuterol Sulfate 3 ML Q4P PRN 06/09 2244 AC INH Ampicillin Sodium/ 1,500 MG Q6 06/09 1927 AC 06/11 Sulbactam Sodium IV 1154 Sodium Chloride 100 ML Bisacodyl 10 MG DAILY PRN 06/10 1115 DC OK Divalproex Sodium 750 MG TID 06/11 1000 DC 06/11 PO 0917 Divalproex Sodium 750 MG BID 06/11 1000 AC PO Gabapentin 800 MG TID 06/10 1600 AC 06/11 PO 0917 Guaifenesin 10 ML Q6P PRN 06/09 2215 AC PO Levetiracetam 1,500 MG BID 06/10 2200 AC 06/11 PO 0917 Magnesium Sulfate 1 GM Q2H 06/10 1215 DC 06/10 Dextrose/Water 100 ML IV 06/10 1614 1500 Nicotine 21 MG DAILY 06/09 1930 AC 06/11 TOP 0917 Pantoprazole Sodium 40 MG DAILY 06/09 193 AC 06/11 IV 0917 Polyethylene Glycol 17 GM DAILY 06/11 1000 CAN PO Potassium Chloride 40 MEQ ONCE ONE 06/11 0930 DC 06/11 PO 06/11 0931 1004 Potassium Chloride 40 MEQ Q13H 06/10 1115 DC 06/11 Sodium Chloride 1,000 ML IV 06/11 1314 0358 Potassium Phosphate 15 mMol ONE ONE 06/11 0700 DC 06/11 Sodium Chloride 250 ML IV 06/11 1104 0822 Topiramate 100 MG QAM 06/11 1000 AC 06/11 PO 0917 Topiramate 150 MG QPM 06/10 2199 AC 06/10 PO 2118 Results Last 48 Hrs of Labs/Mics: Laboratory Tests 06/11/17 0427: Anion Gap 7, Estimated GFR > 60, Glucose 89, Calcium 8.5, Phosphorus 2.0 L, Magnesium 2.0, Total Bilirubin 0.5, AST 28, ALT 15 L, Albumin 2.5 L, CBC w Diff MAN DIFF ORDERED, RBC 4.24 L, MCV 90.4, MCH 31.0, MCHC 34.3, RDW 13.6, MPV 8.6, Gran % 84.6 H, Lymphocytes % 10.2 L, Monocytes % 5.0, Eosinophils % 0, Basophils % 0.2, Absolute Granulocytes 11.7 H, Segmented Neutrophils 70, Band Neutrophils 13 H, Absolute Lymphocytes 1.4, Lymphocytes 11 L, Monocytes 5, Absolute Monocytes 0.7 H, Eosinophils 1, Absolute Eosinophils 0, Absolute Basophils 0, Platelet Estimate ADEQUATE, Normocytic RBCs VERIFIED, Normochromic RBCs VERIFIED, Valproic Acid 36.8 L 06/10/17 2000: Amitriptyline Pending, Amitriptyline&Nortrip Pending, Nortriptyline Pending 06/10/17 0450: Anion Gap 10, Estimated GFR > 60, BUN/Creatinine Ratio 20.0, Magnesium 1.6, Troponin I < 0.01, CBC w Diff MAN DIFF ORDERED, RBC 4.05 L, MCV 91.8, MCH 30.8, MCHC 33.6, RDW 13.8, MPV 8.4, Gran % 88.0 H, Lymphocytes % 6.6 L, Monocytes % 5.4, Eosinophils % 0, Basophils % 0, Absolute Granulocytes 15.3 H, Segmented Neutrophils 82 H, Band Neutrophils 6 H, Absolute Lymphocytes 1.1 L, Lymphocytes 8 L, Monocytes 4, Absolute Monocytes 0.9 H, Absolute Eosinophils 0 , Absolute Basophils 0, Platelet Estimate ADEQUATE, Normochromic RBCs VERIFIED, Ovalocytes FEW, Fld Total RBCs Counted 100 06/10/17 0019: Lactic Acid 1.3, Ammonia 31 H 06/10/17 0001: pH 7.42, pCO2 26 L, pO2 90, HCO3 18 L, ABG O2 Sat (Measured) 96.0, Carboxyhemoglobin 0.4 L, O2 Concentration % 1 LITER, O2 Delivery Method N/C, Phlebotomy Draw Site RIGHT RADIAL 06/09/17 2109: Troponin I < 0.01, Prolactin 6.3 06/09/17 1821: Lactic Acid Cancelled 06/09/17 1612: Urine Opiates Screen > 4000.00 H, Methadone Screen 54, Barbiturate Screen 79, Ur Phencyclidine Scrn < 6.00, Amphetamines Screen 115, U Benzodiazepines Scrn < 85, Urine Cocaine Screen < 50, Urine Cannabis Screen > 80.00 H, Urine Color YEL , Urine Clarity CLEAR, Urine pH 6.5, Ur Specific [place] 1.020, Urine Protein NEG, Urine Ketones TRACE H, Urine Nitrite NEG, Urine Bilirubin NEG, Urine Urobilinogen 1.0, Ur Leukocyte Esterase NEG, Ur Microscopic EXAM NOT REQUIRED, Urine Hemoglobin NEG, Urine Glucose NEG 06/09/17 1555: pH 7.43, pCO2 32 L, pO2 71 L, HCO3 21, ABG O2 Sat (Measured) 94.0 L, P-50 ( Temp Corrected) N, Carboxyhemoglobin 3.3, O2 Concentration % RA, Phlebotomy Draw Site RIGHT BRACHIAL Microbiology 06/10 115 URINE ROUT: Legionella Antigen - COMP 02/22 1150 URINE ROUT: Streptococcus pneumoniae Antigen (M - COMP 06/09 2156 UPPER RESP: Surveillance Culture - COMP METH RESIST STAPH AUREUS 06/09 2156 GI: Surveillance Culture - COMP 06/09 1612 URINE ROUT: Urine Culture - COMP Assessment/Plan Assessment/Plan Assessment: 1. Bradycardia; sinus and junctional 2. Ventricular ectopy 3. Chronic opiate use 4. Altered mental status - improved 5. Hypokalemia - improved 6. Seizure disorder Recommendations: -Continue to monitor on telemetry. -In view of the persistent and intermittently worsening episodes of sinus and junctional bradycardia, I believe that strong consideration for permanent pacemaker placement is warranted. I will disuss further with Dr. Duvall and Dr. Churchill. - Continue to monitor metabolic parameters -Continue antibibiotics -Atropine at bedside Continue telemetry? Yes
[2017-06-11 16:00] VITALS: BP 122/80
[2017-06-12] VITALS: BP 100/60
[2017-06-12 04:00] VITALS: BP 118/82
[2017-06-12 05:11] LABS: ABSOLUTE BASOPHIL COUNT 0 /CUMM (0.0-0.2); ABSOLUTE EOSINOPHIL COUNT 0 /CUMM (0.0-0.7); ABSOLUTE GRANULOCYTE CT 7.1 /CUMM (1.4-6.5); ABSOLUTE LYMPH COUNT 2.5 /CUMM (1.2-3.4); ABSOLUTE MONOCYTE COUNT 0.9 /CUMM (0.10-0.60); BASOPHIL % 0.3 % (0.0-2.0); EOSINOPHIL % 0.2 % (0-5); GRANULOCYTE % 67.4 % (42.2-75.2); HEMATOCRIT 36.3 % (42-52); MEAN CORPUSCULAR HGB CONC 34.3 G/DL (33.0-37.0); MEAN CORPUSCULAR VOLUME 90.3 FL (80.0-94.0); MEAN PLATELET VOLUME 8.7 FL (7.4-10.4); PLATELET COUNT 157 /CUMM (130-400); RBC DISTRIBUTION WIDTH 13.8 % (11.5-14.5); RED BLOOD CELL CT 4.02 /CUMM (4.70-6.10); WHITE BLOOD CELL COUNT 10.5 /CUMM (4.8-10.8)
[2017-06-12 08:00] VITALS: BP 100/60
--- NOTE | 2017-06-12 08:24 | PN- Housestaff ---
Herber CHAVEZ,Marisel 06/12/17 0824: Subjective Follow-up For: Altered mental status Sepsis secondary to aspiration pneumonia Tele-Events Since Last Visit: Patient had a 5 beat run of V. tach overnight with some ectopy on telemetry strips with PVCs and PACs, he also ayde down to 34 came back up to 40s Subjective: Patient seen and examined. Eating breakfast. Continues to complain of lower abdominal pain. Alert oriented 3. BM x2. Acute Overall status improved Review of Systems Constitutional: Reports: see HPI. Objective Last 24 Hrs of Vital Signs/I&O Vital Signs Date Time Temp Pulse Resp B/P B/P Pulse O2 O2 Flow FiO2 Mean Ox Delivery Rate 06/12 0400 98.5 38 22 118/82 96 Room Air 06/12 0000 100 Room Air 06/12 0000 98.8 44 20 100/60 100 Room Air 06/11 1600 98.4 42 22 122/80 99 Room Air 06/11 1214 99 Room Air Room Air Intake & Output 06/12 1600 06/12 0800 06/12 0000 Intake Total 220 700 Output Total 750 600 Balance -530 100 Intake, IV 220 Intake, Oral 700 Number 2 Bowel Movements Output, Urine 750 600 Physical Exam General Appearance: Alert, Oriented X3, Cooperative HEENT: Atraumatic Neck: Supple Cardiovascular: Normal S1, Normal S2, sinus ayde Lungs: Clear to Auscultation Abdomen: Normal Bowel Sounds, Soft, lower abd tenderness Neurological: Normal Speech Current Medications: Current Medications Sig/Onur Start time Last Medication Dose Route Stop Time Status Admin Acetaminophen 650 MG Q6P PRN 06/09 1929 AC PO Acetaminophen 1,000 MG Q6P PRN 06/09 1929 AC IV Albuterol Sulfate 3 ML Q4P PRN 06/09 224 AC INH Ampicillin Sodium/ 1,500 MG Q6 06/098 AC 06/12 Sulbactam Sodium IV 0612 Sodium Chloride 100 ML Divalproex Sodium 750 MG BID 06/11 1000 AC 06/12 PO 0904 Gabapentin 800 MG TID 06/10 1600 AC 06/12 PO 09 Guaifenesin 10 ML Q6P PRN 06/09 2215 AC PO Levetiracetam 1,500 MG BID 06/100 AC 06/12 PO 0904 Magnesium Oxide 400 MG ONE ONE 06/12 0900 DC 06/12 PO 06/12 09 0905 Nicotine 21 MG DAILY 06/09 1930 AC 06/12 TOP 0905 Pantoprazole Sodium 40 MG DAILY 06/09 1934 AC 06/12 IV 0905 Potassium Chloride 40 MEQ ONCE ONE 06/12 0900 DC 06/12 PO 06/12 0901 09 Potassium Phosphate 15 mMol ONE ONE 06/11 0700 DC 06/11 Sodium Chloride 250 ML IV 06/11 1104 0822 Topiramate 100 MG QAM 06/11 1000 AC 06/12 PO 0905 Topiramate 150 MG QPM 06/10 2199 AC 06/11 PO 2233 Last 24 Hrs of Lab/Michael Results Last 24 Hrs of Labs/Mics: Laboratory Tests 06/12/17 0445: Anion Gap 6, Estimated GFR > 60, Glucose 89, Calcium 8.5, Phosphorus 2.6, Magnesium 1.7, Total Bilirubin 0.5, AST 26, ALT 22, Albumin 2.4 L, CBC w Diff NO MAN DIFF REQ, RBC 4.02 L, MCV 90.3, MCH 31.0, MCHC 34.3, RDW 13.8, MPV 8.7, Gran % 67.4, Lymphocytes % 23.5, Monocytes % 8.6, Eosinophils % 0.2, Basophils % 0.3, Absolute Granulocytes 7.1 H, Absolute Lymphocytes 2.5, Absolute Monocytes 0.9 H, Absolute Eosinophils 0, Absolute Basophils 0 Assessment/Plan Assessment: The patient is 51-year-old man with past medical history of GERD, seizures, chronic back pain status post neurostimulator and on chronic opiate therapy. Patient has a lifeline and called EMS for left-sided chest pain. In ED patient became lethargic only responsive to painful stimuli after receiving IV Ativan. He is currently being treated and evaluated for following condition #AMS The patient initially presented with sepsis-like picture (see below) with left lower lobe infiltrate suspicious for pneumonia. In ED patient received Ativan and became lethargic and unresponsive requiring Narcan. -The possible etiologies of altered mental status included meningitis/ encephalitis with the presentation of fever, leukocytosis bandemia and tachycardia along with h/o neurostimulator. Improving altered mental status with no meningeal signs along with resolution of fever makes meningitis/encephalitis less likely -Seizure with post-ictal state is also a possibility. Though less likely. No clinical seizure has been noted since admission and the patient is being maintained on valproic acid, Keppra, topiramate and gabapentin -Medication-induced considering patient is on chronic opiate therapy for chronic back pain along with benzodiazepine administration in the ED. It is most likely cause of AMS. Of note patient is also taking a tricyclic antidepressant amitryptaline, Overdose also needed to be considered. He denies any suicidal ideation and denies overdose as well. #Sepsis 2/2 left lower lobe aspiration pneumonia vs meningitis The patient presented sudden onset pleuritic chest pain along with with fever, tachycardia, later became hypotensive as well, Leukocytosis, bandemia, bibasilar densities on chest x-ray with CT showing left lower infiltrate. Urinary leigenella and strep pneumo antigen negative See above meningitis was a possibility though less likely in setting of resolving altered mental status. Patient received empirical therapy with ceftriaxone, vancomycin, acyclovir and Decadron -Monitoring fever and WBC curve, WBC count is trending up and can be secondary to Decadron administration, bandemia worsening -Continue Unasyn and follow blood cultures, urine cultures and sputum cultures. #History of seizures -EEG pending -Continue Keppra, gabapentin 800 mg 3 times a day and Topamax -Valproic acid level 36.8, 750 MG valproic acid twice a day instead of TID for now #History of depression Amitryptaline on hold, Resume after checking the level #History of chronic back pain on narcotics -Watch for excessive sedation -Avoid benzodiazepines #Sinus bradycardia -Continue telemetry monitoring, atropine at bedside -Consider short-term with oral theophylline if symptomatic -Patient is candidate for pacemaker placement, will discuss with cardiology #Constipation-Resolved Patient complaining of lower abdominal pain CT scan positive for Large volume of stool throughout colon. Most likely secondary to opiates After recieving MiraLAX, milk of magnesia and Docusate suppository, he had multiple bowel movements initially. 2 bowel movement since yesterday. #Hypokalemia -Monitor and replete aggressively #Upper resp nares culture surveillance MRSA -Contact isolation Problem List: 1. Opiate abuse, continuous Pain Ratin Pain Location: lower abd Pain Goal: Pain 4 or less Pain Plan: prn Tomorrow's Labs & Rationales: cbc bep Luis Sorto MD 06/12/17 0835: Attending MD Review Statement Attending Statement Attending MD Statement: examined this patient, discuss w/resident/PA/CASE PACKER, agreed w/resident/PA/CASE PACKER, discussed with family, reviewed EMR data (avail), discussed with nursing, discussed with case mgmt, reviewed images, amended to note Attending Assessment/Plan: Impression 51 year old man * telemetry hold for bradycardia - possible secondary to seizure medications, unclear etiology * LLL aspiration pneumonia * ventricular ectopy * seizure disorder Plan -telemetry monitoring -hemodynamic monitoring -unasyn -awaiting decision on pacemaker -cardiology,neurology,ID following DVT prophylaxis at all times Telemetry hold DVT prophylaxis at all times Telemetry hold
--- NOTE | 2017-06-12 12:33 | PN- Cardiology ---
Subjective Subjective: Doing about the same. Continues to have episodes of bradycardia, both junctional and sinus. More frequent ventricular ectopy also noted with brief runs of wide-complex tachycardia. Objective Vital Signs and I&Os Vital Signs Date Time Temp Pulse Resp B/P B/P Pulse O2 O2 Flow FiO2 Mean Ox Delivery Rate 06/12 0800 96 Room Air Room Air 06/12 0800 98.6 45 16 100/60 96 Room Air Room Air 06/12 0400 98.5 38 22 118/82 96 Room Air 06/12 0000 100 Room Air 06/12 0000 98.8 44 20 100/60 100 Room Air 06/11 1600 98.4 42 22 122/80 99 Room Air Intake & Output 06/12 1600 06/12 0800 06/12 0000 06/11 1600 06/11 0800 06/11 0000 Intake Total 220 700 772 770 5164 Output Total 750 600 500 975 250 Balance -530 100 250 -142 846 Intake, IV 220 350 833 756 Intake, Oral 700 400 340 Number 2 3 2 1 Bowel Movements Output, Urine 750 600 500 975 250 Patient 141 lb Weight Physical Exam: General Appearance Cooperative, No Acute Distress, alert Skin Normal HEENT Atraumatic, EOMI, Mucous Membr. moist/pink, Pupils mid dilated, repond to light Cardiovascular Regular Rate, Normal S1, Normal S2, 1/6 systolic murmur Lungs Clear bilaterally to auscultation and percussion Abdomen Soft, No Tenderness Neurological Grossly non focal Extremities No Edema Current Medications: Current Medications Sig/Onur Start time Last Medication Dose Route Stop Time Status Admin Acetaminophen 650 MG Q6P PRN 06/09 1929 AC PO Acetaminophen 1,000 MG Q6P PRN 06/09 1929 AC IV Albuterol Sulfate 3 ML Q4P PRN 06/09 224 AC INH Ampicillin Sodium/ 1,500 MG Q6 06/098 AC 06/12 Sulbactam Sodium IV 0612 Sodium Chloride 100 ML Divalproex Sodium 750 MG BID 06/11 1000 AC 06/12 PO 09 Gabapentin 800 MG TID 06/10 1600 AC 06/12 PO 09 Guaifenesin 10 ML Q6P PRN 06/09 2215 AC PO Levetiracetam 1,500 MG BID 06/10 2199 AC 06/12 PO 0904 Magnesium Oxide 400 MG ONE ONE 06/12 09 DC 06/12 PO 06/12 0901 0905 Nicotine 21 MG DAILY 06/09 1929 AC 06/12 TOP 0905 Pantoprazole Sodium 40 MG DAILY 06/09 193 AC 06/12 IV 0905 Potassium Chloride 40 MEQ ONCE ONE 06/12 0900 DC 06/12 PO 06/12 0901 0905 Topiramate 100 MG QAM 06/11 1000 AC 06/12 PO 0905 Topiramate 150 MG QPM 06/10 2199 AC 06/11 PO 2233 Results Last 48 Hrs of Labs/Mics: Laboratory Tests 06/12/17 0445: Anion Gap 6, Estimated GFR > 60, Glucose 89, Calcium 8.5, Phosphorus 2.6, Magnesium 1.7, Total Bilirubin 0.5, AST 26, ALT 22, Albumin 2.4 L, CBC w Diff NO MAN DIFF REQ, RBC 4.02 L, MCV 90.3, MCH 31.0, MCHC 34.3, RDW 13.8, MPV 8.7, Gran % 67.4, Lymphocytes % 23.5, Monocytes % 8.6, Eosinophils % 0.2, Basophils % 0.3, Absolute Granulocytes 7.1 H, Absolute Lymphocytes 2.5, Absolute Monocytes 0.9 H, Absolute Eosinophils 0, Absolute Basophils 0 06/11/177: Anion Gap 7, Estimated GFR > 60, Glucose 89, Calcium 8.5, Phosphorus 2.0 L, Magnesium 2.0, Total Bilirubin 0.5, AST 28, ALT 15 L, Albumin 2.5 L, CBC w Diff MAN DIFF ORDERED, RBC 4.24 L, MCV 90.4, MCH 31.0, MCHC 34.3, RDW 13.6, MPV 8.6, Gran % 84.6 H, Lymphocytes % 10.2 L, Monocytes % 5.0, Eosinophils % 0, Basophils % 0.2, Absolute Granulocytes 11.7 H, Segmented Neutrophils 70, Band Neutrophils 13 H, Absolute Lymphocytes 1.4, Lymphocytes 11 L, Monocytes 5, Absolute Monocytes 0.7 H, Eosinophils 1, Absolute Eosinophils 0, Absolute Basophils 0, Platelet Estimate ADEQUATE, Normocytic RBCs VERIFIED, Normochromic RBCs VERIFIED, Valproic Acid 36.8 L 06/10/17 2000: Amitriptyline Pending, Amitriptyline&Nortrip Pending, Nortriptyline Pending Assessment/Plan Assessment/Plan Assessment: 1. Bradycardia; sinus and junctional 2. Ventricular ectopy 3. Chronic opiate use 4. Altered mental status - improved 5. Hypokalemia - improved 6. Seizure disorder Recommendations: -Continue to monitor on telemetry. -In view of the persistent and intermittently worsening episodes of sinus and junctional bradycardia, I believe that strong consideration for permanent pacemaker placement is warranted. I will disuss further with Dr. Duvall and Dr. Churchill. - Continue to monitor metabolic parameters -Continue antibibiotics -Atropine at bedside -Nothing by mouth after midnight Wednesday for possible permanent pacemaker on Wednesday with Dr. Duvall Continue telemetry? Yes
--- NOTE | 2017-06-12 12:35 | PN- Infect Dx ---
Subjective Subjective: No fever/chills. Mild abd discomfort. Diarrhea subsiding. Worried about his cats at home. Review of Systems Comments: 12 points reviewed as noted, otherwise neg. Objective Last 24 Hrs of Vital Signs/I&O Vital Signs Date Time Temp Pulse Resp B/P B/P Pulse O2 O2 Flow FiO2 Mean Ox Delivery Rate 06/12 08 96 Room Air Room Air 06/12 0800 98.6 45 16 100/60 96 Room Air Room Air 06/12 0400 98.5 38 22 118/82 96 Room Air 06/12 0000 100 Room Air 06/12 0000 98.8 44 20 100/60 100 Room Air 06/11 1600 98.4 42 22 122/80 99 Room Air Intake & Output 06/12 1600 06/12 0800 06/12 0000 Intake Total 220 700 Output Total 750 600 Balance -530 100 Intake, IV 220 Intake, Oral 700 Number 2 Bowel Movements Output, Urine 750 600 Physical Exam Other Physical Findings: He is awake and alert in no acute distress. Skin reveals no rash. HEENT negative. Neck is supple with no adenopathy. Lungs are clear. Heart regular rhythm with no murmur. Abdomen is soft, mildly tender on palpation over the lower abdomen, with no guarding or rebound, with positive bowel sounds. Back no CVA tenderness. Extremities no cyanosis, clubbing or edema; right hip neurostimulator in place with no inflammation at the site. Results Last 24 Hours of Lab Results: Laboratory Tests 06/12 0445 Chemistry Sodium (137 - 145 mmol/L) 139 Potassium (3.5 - 5.1 mmol/L) 3.3 L Chloride (98 - 107 mmol/L) 114 H Carbon Dioxide (22 - 30 mmol/L) 19 L Anion Gap (5 - 16) 6 BUN (9 - 20 mg/dL) 13 Creatinine (0.7 - 1.2 mg/dL) 0.6 L Estimated GFR (>60 ml/min) > 60 Glucose (65 - 99 mg/dL) 89 Calcium (8.4 - 10.2 mg/dL) 8.5 Phosphorus (2.5 - 4.5 mg/dL) 2.6 Magnesium (1.6 - 2.3 mg/dL) 1.7 Total Bilirubin (0.2 - 1.3 mg/dL) 0.5 AST (17 - 59 U/L) 26 ALT (21 - 72 U/L) 22 Albumin (3.5 - 5.0 g/dL) 2.4 L Hematology CBC w Diff NO MAN DIFF REQ WBC (4.8 - 10.8 /CUMM) 10.5 RBC (4.70 - 6.10 /CUMM) 4.02 L Hgb (14.0 - 18.0 G/DL) 12.5 L Hct (42 - 52 %) 36.3 L MCV (80.0 - 94.0 FL) 90.3 MCH (27.0 - 31.0 PG) 31.0 MCHC (33.0 - 37.0 G/DL) 34.3 RDW (11.5 - 14.5 %) 13.8 Plt Count (130 - 400 /CUMM) 157 MPV (7.4 - 10.4 FL) 8.7 Gran % (42.2 - 75.2 %) 67.4 Lymphocytes % (20.5 - 51.1 %) 23.5 Monocytes % (1.7 - 9.3 %) 8.6 Eosinophils % (0 - 5 %) 0.2 Basophils % (0.0 - 2.0 %) 0.3 Absolute Granulocytes (1.4 - 6.5 /CUMM) 7.1 H Absolute Lymphocytes (1.2 - 3.4 /CUMM) 2.5 Absolute Monocytes (0.10 - 0.60 /CUMM) 0.9 H Absolute Eosinophils (0.0 - 0.7 /CUMM) 0 Absolute Basophils (0.0 - 0.2 /CUMM) 0 Last 24 Hours of Michael Results: SPEC #: [id number] HAI: 06/09/17 STATUS: COMP RECD: 06/09/[address]: Pollo CHAVEZ, Tammyjesse SOURCE: UPPER RESP ENTR: 06/09/[address]: Jaron CHAVEZ,Jaron SPDESC: NARES R ORDERED: ACT SURV NARES Procedure Result > ACTIVE SURVEILLANCE CULTURE Final 06/11/17 METH RESIST STAPH AUREUS ISOLATED Called to/Readback by ROSEMARY by [facility] 06/11/17811 Recent Imaging Studies: EXAMINATION: XR PORTABLE CHEST CLINICAL INFORMATION: Aspiration pneumonia. For follow up. COMPARISON: Chest done on 06/09/2017. TECHNIQUE: Portable frontal view of the chest was obtained. FINDINGS: Previously identified airspace disease at left lower lobe of the lung shows interval improvement without resolution. The remainder of the lung dowd remain clear. The cardiomediastinal silhouette remains within normal limits. There is no pleural effusion or pneumothorax present, unchanged. Likely old nonunited fracture is noted at lateral end of the right clavicle. IMPRESSION: Interval improvement of left lower lobar airspace disease without resolution since 06/09/2017. Continued follow up to resolution is recommended. DICTATED BY: Kyra Persaud MD DATE/TIME DICTATED:06/11/171340 PRODUCTION WORKER:ARIELLE DATE/TIME TRANSCRIBED:06/11/171340 CONFIDENTIAL, DO NOT COPY WITHOUT APPROPRIATE AUTHORIZATION. <Electronically signed in Other Vendor System> SIGNED BY: Kyra Persaud MD 06/11/17 5355 Assessment/Plan ID Impression: 51-year-old man with past medical history of GERD, seizures, chronic back pain status post neurostimulator and on chronic opiate therapy admitted 06/09 w/ lethargy. Overall improved with no further fevers and with white blood cell count decreasing on Unasyn treatment for presumed aspiration pneumonia, with bibasilar densities on his chest x-ray and CT of the chest. The etiology of his lower abdominal discomfort is unclear, with the normal CT of the abdomen and pelvis, and it could be secondary to muscle strain related to his cough. His sinus bradycardia persists and he apparently will require a pacemaker, which can be pursued as his blood cultures remain negative. MRSA colonized Suggestion: 1. Continue Unasyn Day #3. 2. CBC, BMP, ESR on 06/14. 3. Sputum cx if developing productive cough. 4. Chlorhexidine mouth wash
[2017-06-12 16:42] VITALS: BP 110/76
[2017-06-12 21:47] VITALS: BP 110/70
[2017-06-13 06:43] VITALS: BP 110/64
[2017-06-13 08:21] LABS: ABSOLUTE BASOPHIL COUNT 0 /CUMM (0.0-0.2); ABSOLUTE EOSINOPHIL COUNT 0.1 /CUMM (0.0-0.7); ABSOLUTE GRANULOCYTE CT 5.4 /CUMM (1.4-6.5); ABSOLUTE LYMPH COUNT 2.8 /CUMM (1.2-3.4); ABSOLUTE MONOCYTE COUNT 0.9 /CUMM (0.10-0.60); BASOPHIL % 0.3 % (0.0-2.0); EOSINOPHIL % 0.9 % (0-5); GRANULOCYTE % 58.9 % (42.2-75.2); HEMATOCRIT 38.1 % (42-52); MEAN CORPUSCULAR HGB 30.5 PG (27.0-31.0); MEAN CORPUSCULAR HGB CONC 33.8 G/DL (33.0-37.0); MEAN CORPUSCULAR VOLUME 90.1 FL (80.0-94.0); MEAN PLATELET VOLUME 8.6 FL (7.4-10.4); PLATELET COUNT 201 /CUMM (130-400); RBC DISTRIBUTION WIDTH 13.8 % (11.5-14.5); RED BLOOD CELL CT 4.23 /CUMM (4.70-6.10); WHITE BLOOD CELL COUNT 9.2 /CUMM (4.8-10.8)
--- NOTE | 2017-06-13 09:23 | PN- Housestaff ---
Dianne CHAVEZ,Jarett 06/13/17 0922: Subjective Follow-up For: AMS Sepsis secondary to aspiration pneumonia Tele-Events Since Last Visit: Sinus bradycardia with heart rate of 35-48 Subjective: Patient was seen and examined today. Patient denies any chest pain, palpitations, dizziness, lightheadedness, nausea/vomiting. Patient reports chronic back pain. Patient has had multiple loose watery nonbloody bowel movements. Review of Systems Constitutional: Reports: see HPI. Objective Last 24 Hrs of Vital Signs/I&O Vital Signs Date Time Temp Pulse Resp B/P B/P Pulse O2 O2 Flow FiO2 Mean Ox Delivery Rate 06/13 1447 98.0 54 16 100/66 98 Room Air 06/13 0800 Room Air 06/13 0643 98.2 42 12 110/64 96 Room Air Intake & Output 06/13 1600 06/13 0800 06/13 0000 Intake Total 1420 340 590 Output Total 1300 750 975 Balance 120 -410 -385 Intake, IV 460 140 110 Intake, Oral 960 200 480 Number 5 2 1 Bowel Movements Output, Urine 1300 750 975 Physical Exam General Appearance: Alert, Cooperative, No Acute Distress HEENT: Atraumatic Cardiovascular: Normal S1, Normal S2, sinus bradycardia Lungs: Clear to Auscultation, Normal Air Movement Abdomen: Normal Bowel Sounds, Soft, No Tenderness Neurological: Normal Speech Current Medications: Current Medications Sig/Onur Start time Last Medication Dose Route Stop Time Status Admin Acetaminophen 650 MG Q6P PRN 06/09 1929 AC 06/12 PO 2130 Acetaminophen 1,000 MG Q6P PRN 06/09 193 AC 06/13 IV 1723 Ampicillin Sodium/ 1,500 MG Q6 06/09 1928 DC 06/13 Sulbactam Sodium IV 1723 Sodium Chloride 100 ML Chlorhexidine 15 ML DAILY 06/12 1400 AC 06/13 Gluconate PO 0854 Divalproex Sodium 750 MG BID 06/11 1000 AC 06/13 PO 2116 Gabapentin 800 MG TID 06/10 1600 AC 06/13 PO 2116 Guaifenesin 10 ML .STK-MED ONE 06/13 0849 DC PO 06/13 0850 Guaifenesin 10 ML Q6P PRN 06/09 2215 AC 06/13 PO 0852 Levetiracetam 1,500 MG BID 06/10 2199 AC 06/13 PO 2116 Magnesium Sulfate 1 GM Q2H 06/13 1100 DC 06/13 Dextrose/Water 100 ML IV 06/13 1459 1420 Nicotine 21 MG DAILY 06/09 1930 AC 06/13 TOP 0853 Pantoprazole Sodium 40 MG DAILY 06/09 1933 AC 06/13 IV 0852 Potassium Chloride 40 MEQ ONCE ONE 06/13 2000 DC 06/13 PO 06/13 Potassium Chloride 40 MEQ ONCE ONE 06/13 1245 DC 06/13 PO 06/13 1246 1420 Potassium Chloride 40 MEQ ONCE ONE 06/13 1145 CAN PO 06/13 1146 Topiramate 100 MG QAM 06/11 1000 AC 06/13 PO 0852 Topiramate 150 MG QPM 06/10 2199 AC 06/13 PO 2115 Vitamin A/Vitamin D 1 SARWAT BID 06/12 1356 AC 06/13 TOP 2117 Zinc Oxide 1 SARWAT BID 06/12 135 AC 06/13 TOP 2117 Last 24 Hrs of Lab/Michael Results Last 24 Hrs of Labs/Mics: Laboratory Tests 06/13/17 0638: Anion Gap 12, Estimated GFR > 60, BUN/Creatinine Ratio 15.0, Phosphorus 3.5, Magnesium 1.7, CBC w Diff NO MAN DIFF REQ, RBC 4.23 L, MCV 90.1, MCH 30.5, MCHC 33.8, RDW 13.8, MPV 8.6, Gran % 58.9, Lymphocytes % 30.7, Monocytes % 9.2, Eosinophils % 0.9, Basophils % 0.3, Absolute Granulocytes 5.4, Absolute Lymphocytes 2.8, Absolute Monocytes 0.9 H, Absolute Eosinophils 0.1, Absolute Basophils 0 Microbiology 06/13 1500 STOOL: Clostridium difficile Toxin A & B - RECD Assessment/Plan Assessment: Patient is a 51-year-old female with past medical history of chronic back pain status post neurostimulator and opiate therapy, seizures, GERD, COPD, anxiety, depression who presented with altered mental status and was initially admitted to general medicine for sepsis secondary to left lower lobe pneumonia, altered mental status attributed to opiate/benzo use versus seizures. On day of admission patient had a rapid response for unresponsiveness. Patient received Narcan with minimal response, IV fluids, IV Keppra and was transferred to ICU for closer monitoring. Patient was seen by cardiology, pulmonology, infectious disease. There was concern for meningitis initially and patient was started on empiric IV antibiotics and dexamethasone. Patient was seen by infectious disease and an LP was deemed unnecessary. Patient's altered mental status was attributed to medications including opiates and benzos. Patient was found to be bradycardic to the 30s to 40s. Patient is being followed by cardiology and cardiothoracic surgery and is planned to have a pacemaker placed tomorrow. 1. AMS likely drug-induced secondary to opiates and benzos 2. Sinus Bradycardia, ventricular ectopy 3. Aspiration pneumonia 4. Electrolyte abnormalities: Hypokalemia, hypomagnesemia 5. History of seizures 6. Diarrhea, rule out c.dif Plan: - Continue to monitor on telemetry - Continue IV Unasyn today and switched to by mouth Augmentin tomorrow - Continue gabapentin, Keppra, topiramate, Depakote - Continue Protonix 40 mg IV daily - Continue Tylenol when necessary for pain - Hold off sedatives at this time - Continue nicotine 21 mg - Replete potassium and magnesium today - Repeat CBC, BEP, magnesium, ESR - Follow up c.dif - Cardiology, infectious disease, neurology on board. Appreciate recommendations. - Patient is nothing by mouth for pacemaker placement tomorrow per cardiology and cardiothoracic surgery (Dr. Duvall) DVT prophylaxis: Alps Diet: Nothing by mouth for pacemaker placement Code: Full code Problem List: 1. Altered mental state Pain Ratin Pain Location: back Pain Goal: Pain 7 or less Pain Plan: tylenol PRN Tomorrow's Labs & Rationales: cbc bep and mg esr see a/p Zach Verduzco MD 06/13/17 1357: Attending MD Review Statement Attending Statement Attending MD Statement: examined this patient, discuss w/resident/PA/AUTOMOBILE PAINTER, reviewed EMR data (avail), discussed with nursing Attending Assessment/Plan: 51 year old man with past medical history of seizures gastroesophageal reflux disease, chronic back pain status post neurostimulator and on chronic opiate therapy. And was initially admitted in the ICU for bradycardia which was possibly related thought to be from a seizure medications. And continued to have episodes of bradycardia sometimes junctional and sometimes sinus. However was deemed stable to be transferred to telemetry. Patient seen and examined at bedside this morning. His blood pressure is 110/64 heart rate of 45 respiratory rate of 12 breathing ambient air comfortably no acute distress. His chest pain shortness of breath lightheadedness dizziness * Persistent bradycardia * LLL aspiration pneumonia * ventricular ectopy * seizure disorder Hypokalemia and hypomagnesemia Plan -Telemetry monitoring - NPO after midnight today definitive plan for permanent pacemaker placement tomorrow morning by Dr. Eloina jeffries to be switched to oral Augmentin tomorrow to complete 7 days -cardiology, neurology, ID following - Replenish electrolytes to keep potassium above 4 and Magnesium above 2 DVT prophylaxis at all times
--- NOTE | 2017-06-13 12:52 | PN- Infect Dx ---
Subjective Subjective: No fever. No CP. Anxious. Review of Systems Comments: 12 points reviewed as noted, otherwise negative. Objective Last 24 Hrs of Vital Signs/I&O Vital Signs Date Time Temp Pulse Resp B/P B/P Pulse O2 O2 Flow FiO2 Mean Ox Delivery Rate 06/13 08 Room Air 06/13 0643 98.2 42 12 110/64 96 Room Air 06/12 2147 97.6 41 16 110/70 98 06/12 1642 97.8 45 19 110/76 99 06/12 1630 Room Air 06/12 1329 96 Room Air Room Air Intake & Output 06/13 1600 06/13 0800 06/13 0000 Intake Total 340 590 Output Total 300 750 975 Balance -300 -410 -385 Intake, IV 140 110 Intake, Oral 200 480 Number 2 1 Bowel Movements Output, Urine 300 750 975 Physical Exam Other Physical Findings: He is awake and alert in no acute distress. Skin reveals no rash. HEENT negative. Neck is supple with no adenopathy. Lungs are clear. Heart regular rhythm with no murmur. Abdomen is soft, mildly tender on palpation over the lower abdomen, with no guarding or rebound, with positive bowel sounds. Back no CVA tenderness. Extremities no cyanosis, clubbing or edema; right hip neurostimulator in place with no inflammation at the site. Results Last 24 Hours of Lab Results: Laboratory Tests 06/13 0638 Chemistry Sodium (137 - 145 mmol/L) 142 Potassium (3.5 - 5.1 mmol/L) 3.4 L Chloride (98 - 107 mmol/L) 112 H Carbon Dioxide (22 - 30 mmol/L) 18 L Anion Gap (5 - 16) 12 BUN (9 - 20 mg/dL) 9 Creatinine (0.7 - 1.2 mg/dL) 0.6 L Estimated GFR (>60 ml/min) > 60 BUN/Creatinine Ratio (7 - 25 %) 15.0 Phosphorus (2.5 - 4.5 mg/dL) 3.5 Magnesium (1.6 - 2.3 mg/dL) 1.7 Hematology CBC w Diff NO MAN DIFF REQ WBC (4.8 - 10.8 /CUMM) 9.2 RBC (4.70 - 6.10 /CUMM) 4.23 L Hgb (14.0 - 18.0 G/DL) 12.9 L Hct (42 - 52 %) 38.1 L MCV (80.0 - 94.0 FL) 90.1 MCH (27.0 - 31.0 PG) 30.5 MCHC (33.0 - 37.0 G/DL) 33.8 RDW (11.5 - 14.5 %) 13.8 Plt Count (130 - 400 /CUMM) 201 MPV (7.4 - 10.4 FL) 8.6 Gran % (42.2 - 75.2 %) 58.9 Lymphocytes % (20.5 - 51.1 %) 30.7 Monocytes % (1.7 - 9.3 %) 9.2 Eosinophils % (0 - 5 %) 0.9 Basophils % (0.0 - 2.0 %) 0.3 Absolute Granulocytes (1.4 - 6.5 /CUMM) 5.4 Absolute Lymphocytes (1.2 - 3.4 /CUMM) 2.8 Absolute Monocytes (0.10 - 0.60 /CUMM) 0.9 H Absolute Eosinophils (0.0 - 0.7 /CUMM) 0.1 Absolute Basophils (0.0 - 0.2 /CUMM) 0 Last 24 Hours of Michael Results: SPEC #: [id number] HAI: 06/09/17 STATUS: RES RECD: 06/09/17 [facility] [address]: Reece Diaz SOURCE: BLOOD ENTR: 06/09/171548 [facility] DR: Jaron CHAVEZ,Jaron SPDESC: 1ST/VENOUS ORDERED: BLOOD CULTURE Procedure Result > BLOOD CULTURE REPORT Preliminary 06/10/17120 No growth after 1 day incubation. Specimen is examined continuously for 5 days before final report unless culture becomes positive. Recent Imaging Studies: reviewed Assessment/Plan ID Impression: 51-year-old man with past medical history of GERD, seizures, chronic back pain status post neurostimulator and on chronic opiate therapy admitted 06/09 w/ lethargy, MS improved. No further fevers and with white blood cell count decreasing on Unasyn treatment for presumed aspiration pneumonia, with bibasilar densities on his chest x-ray and CT of the chest. The etiology of his lower abdominal discomfort is unclear, with the normal CT of the abdomen and pelvis, and it could be secondary to muscle strain related to his cough. His sinus bradycardia persists; planned pacemaker for next week, as his blood cultures remain negative. MRSA colonized Suggestion: 1. Continue Unasyn Day #4; can change in am to oral Augmentin 875 mg po bid in order to complete 7 d treatment. 2. CBC, BMP, ESR on 06/14. 3. Sputum cx if developing productive cough.
--- NOTE | 2017-06-13 14:44 | PN- Cardiology ---
Subjective Subjective: Likely stable. Continues to have episodes of junctional and sinus bradycardia. Remains asymptomatic for now. Objective Vital Signs and I&Os Vital Signs Date Time Temp Pulse Resp B/P B/P Pulse O2 O2 Flow FiO2 Mean Ox Delivery Rate 06/13 0800 Room Air 06/13 0643 98.2 42 12 110/64 96 Room Air 06/12 2147 97.6 41 16 110/70 98 06/12 1642 97.8 45 19 110/76 99 06/12 1630 Room Air Intake & Output 06/13 0806/13 0000 06/12 1600 06/12 0806/12 0000 Intake Total 1420 340 590 730 220 700 Output Total 900 750 975 850 750 600 Balance 520 -410 -385 -120 -530 100 Intake, IV 460 140 110 130 220 Intake, Oral 960 200 480 600 700 Number 4 2 1 2 2 Bowel Movements Output, Urine 900 750 975 850 750 600 Physical Exam: General Appearance Cooperative, No Acute Distress, alert Skin Normal HEENT Atraumatic, EOMI, Mucous Membr. moist/pink, Pupils mid dilated, repond to light Cardiovascular Regular Rate, Normal S1, Normal S2, 1/6 systolic murmur Lungs Clear bilaterally to auscultation and percussion Abdomen Soft, No Tenderness Neurological Grossly non focal Extremities No Edema Current Medications: Current Medications Sig/Onur Start time Last Medication Dose Route Stop Time Status Admin Acetaminophen 650 MG .STK-MED ONE 06/12 2128 DC PO 06/12 2129 Acetaminophen 650 MG Q6P PRN 06/09 1929 AC 06/12 PO 2130 Acetaminophen 1,000 MG Q6P PRN 06/09 1929 AC IV Albuterol Sulfate 3 ML Q4P PRN 06/09 2245 DC INH Ampicillin Sodium/ 1,500 MG Q6 06/09 1927 AC 06/13 Sulbactam Sodium IV 1133 Sodium Chloride 100 ML Chlorhexidine 15 ML DAILY 06/12 1400 AC 06/13 Gluconate PO 0854 Divalproex Sodium 750 MG BID 06/11 1000 AC 06/13 PO 0851 Gabapentin 800 MG TID 06/10 1600 AC 06/13 PO 0852 Guaifenesin 10 ML .STK-MED ONE 06/12 2128 DC PO 06/12 2129 Guaifenesin 10 ML Q6P PRN 06/09 2214 AC 06/13 PO 0852 Levetiracetam 1,500 MG BID 06/10 2199 AC 06/13 PO 0852 Magnesium Sulfate 1 GM Q2H 06/13 1100 AC 06/13 Dextrose/Water 100 ML IV 06/13 1459 1420 Nicotine 21 MG DAILY 06/09 1930 AC 06/13 TOP 0853 Pantoprazole Sodium 40 MG DAILY 06/09 193 AC 06/13 IV 0852 Potassium Chloride 40 MEQ ONCE ONE 06/13 1245 DC 06/13 PO 06/13 1246 1420 Potassium Chloride 40 MEQ ONCE ONE 06/13 1145 CAN PO 06/13 1146 Topiramate 100 MG QAM 06/11 1000 AC 06/13 PO 0852 Topiramate 150 MG QPM 06/10 2199 AC 06/12 PO 2126 Vitamin A/Vitamin D 1 SARWAT BID 06/12 1356 AC 06/13 TOP 0900 Zinc Oxide 1 SARWAT BID 06/12 1356 AC 06/13 TOP 0906 Results Last 48 Hrs of Labs/Mics: Laboratory Tests 06/13/17 0638: Anion Gap 12, Estimated GFR > 60, BUN/Creatinine Ratio 15.0, Phosphorus 3.5, Magnesium 1.7, CBC w Diff NO MAN DIFF REQ, RBC 4.23 L, MCV 90.1, MCH 30.5, MCHC 33.8, RDW 13.8, MPV 8.6, Gran % 58.9, Lymphocytes % 30.7, Monocytes % 9.2, Eosinophils % 0.9, Basophils % 0.3, Absolute Granulocytes 5.4, Absolute Lymphocytes 2.8, Absolute Monocytes 0.9 H, Absolute Eosinophils 0.1, Absolute Basophils 0 06/12/17 0445: Anion Gap 6, Estimated GFR > 60, Glucose 89, Calcium 8.5, Phosphorus 2.6, Magnesium 1.7, Total Bilirubin 0.5, AST 26, ALT 22, Albumin 2.4 L, CBC w Diff NO MAN DIFF REQ, RBC 4.02 L, MCV 90.3, MCH 31.0, MCHC 34.3, RDW 13.8, MPV 8.7, Gran % 67.4, Lymphocytes % 23.5, Monocytes % 8.6, Eosinophils % 0.2, Basophils % 0.3, Absolute Granulocytes 7.1 H, Absolute Lymphocytes 2.5, Absolute Monocytes 0.9 H, Absolute Eosinophils 0, Absolute Basophils 0 Assessment/Plan Assessment/Plan Assessment: 1. Bradycardia; sinus and junctional 2. Ventricular ectopy 3. Chronic opiate use 4. Altered mental status - improved 5. Hypokalemia - improved 6. Seizure disorder Recommendations: -Continue to monitor on telemetry. -In view of the persistent and intermittently worsening episodes of sinus and junctional bradycardia, I believe that strong consideration for permanent pacemaker placement is warranted. I will disuss further with Dr. Duvall and Dr. Churchill. - Continue to monitor metabolic parameters -Continue antibibiotics -Nothing by mouth after midnight Wednesday for possible permanent pacemaker on Wednesday with Dr. Duvall; per infectious disease, it should be fine to proceed with pacemaker implantation. Continue telemetry? Yes
[2017-06-13 14:47] VITALS: BP 100/66
[2017-06-13 23:05] VITALS: BP 102/78
--- NOTE | 2017-06-14 07:29 | PN- Housestaff ---
Subjective Follow-up For: AMS Sepsis secondary to aspiration pneumonia Bradycardia Tele-Events Since Last Visit: Sinus ayde HR: 34-59 Subjective: Patient was seen and examined today. Patient denies any chest pain, palpitations, dizziness, lightheadedness, nausea/vomiting. Patient reports continued loose watery nonbloody bowel movements. Patient is currently nothing by mouth for pacemaker placement today. Review of Systems Constitutional: Reports: see HPI. Objective Last 24 Hrs of Vital Signs/I&O Vital Signs Date Time Temp Pulse Resp B/P B/P Pulse O2 O2 Flow FiO2 Mean Ox Delivery Rate 06/14 1619 97.7 70 20 120/60 100 06/14 0000 Room Air 06/13 2305 98.7 48 16 102/78 98 Intake & Output 06/14 1600 06/14 0800 06/14 0000 Intake Total 5937 809 6686 Output Total 350 800 300 Balance 680 -540 730 Intake, IV 1000 250 Intake, Oral 30 260 780 Number 1 1 Bowel Movements Output, Urine 350 800 300 Physical Exam General Appearance: Alert, Oriented X3, Cooperative, No Acute Distress Other Physical Findings: HEENT: Atraumatic Cardiovascular: Normal S1, Normal S2, sinus bradycardia Lungs: Clear to Auscultation, Normal Air Movement Abdomen: Normal Bowel Sounds, Soft, No Tenderness Neurological: Normal Speech Current Medications: Current Medications Sig/Onur Start time Last Medication Dose Route Stop Time Status Admin Acetaminophen 1,000 MG .STK-MED ONE 06/14 0015 DC IV 06/14 0016 Acetaminophen 650 MG Q6P PRN 06/09 1930 AC 06/12 PO 2131 Acetaminophen 1,000 MG Q6P PRN 06/09 1930 06/14 IV 0019 Ampicillin Sodium/ 1,500 MG Q6 06/14 1200 AC 06/14 Sulbactam Sodium IV 1622 Sodium Chloride 100 ML Chlorhexidine 15 ML DAILY 06/12 1400 06/14 Gluconate PO 1014 Divalproex Sodium 750 MG BID 06/11 1000 06/14 PO 1013 Fentanyl Citrate 100 MCG .STK-MED ONE 06/14 1131 DC IM 06/14 1132 Gabapentin 800 MG TID 06/10 1600 06/14 PO 1623 Guaifenesin 10 ML Q6P PRN 06/09 2215 AC 06/13 PO 0852 Levetiracetam 1,500 MG BID 06/10 2199 06/14 PO 1014 Midazolam HCl 4 MG .STK-MED ONE 06/14 1131 DC IM 06/14 1132 Nicotine 21 MG DAILY 06/09 1930 AC 06/13 TOP 0853 Oxycodone HCl 5 MG Q4 HRS NEEDED PRN 06/14 1415 AC PO Pantoprazole Sodium 40 MG DAILY 06/09 1934 AC 06/14 IV 1013 Topiramate 100 MG QAM 06/11 1000 AC 06/14 PO 1014 Topiramate 150 MG QPM 06/10 2199 AC 06/13 PO 2116 Vitamin A/Vitamin D 1 SARWAT BID 06/12 1356 AC 06/14 TOP 1014 Zinc Oxide 1 SARWAT BID 06/12 1356 AC 06/14 TOP 1014 Last 24 Hrs of Lab/Michael Results Last 24 Hrs of Labs/Mics: Laboratory Tests 06/14/17 0629: ESR Westergren 10 06/14/17 0629: Anion Gap 11, Estimated GFR > 60, BUN/Creatinine Ratio 15.0, Magnesium 2.0, CBC w Diff NO MAN DIFF REQ, RBC 4.28 L, MCV 89.6, MCH 30.9, MCHC 34.5, RDW 13.9, MPV 8.1, Gran % 49.3, Lymphocytes % 38.3, Monocytes % 10.4 H, Eosinophils % 1.7 , Basophils % 0.3, Absolute Granulocytes 4.5, Absolute Lymphocytes 3.5 H, Absolute Monocytes 1.0 H, Absolute Eosinophils 0.2, Absolute Basophils 0 Assessment/Plan Assessment: Patient is a 51-year-old male with past medical history of chronic back pain status post neurostimulator and opiate therapy, seizures, GERD, COPD, anxiety, depression who presented with altered mental status and was initially admitted to general medicine for sepsis secondary to left lower lobe pneumonia, altered mental status attributed to opiate/benzo use versus seizures. On day of admission patient had a rapid response for unresponsiveness. Patient received Narcan with minimal response, IV fluids, IV Keppra and was transferred to ICU for closer monitoring. Patient was seen by cardiology, pulmonology, infectious disease. There was concern for meningitis initially and patient was started on empiric IV antibiotics and dexamethasone. Patient was seen by infectious disease and an LP was deemed unnecessary. Patient's altered mental status was attributed to medications including opiates and benzos. Patient was found to be bradycardic to the 30s to 40s. Patient is being followed by cardiology and cardiothoracic surgery. Patient had pacemaker placed today by cardiothoracic surgery. Postop chest x-ray shows no pneumothorax with left pectoral pacemaker placement. 1. AMS likely drug-induced secondary to opiates and benzos 2. Sinus Bradycardia S/P Pacemaker placement 3. Aspiration pneumonia 4. Electrolyte abnormalities: Hypokalemia, hypomagnesemia 5. History of seizures 6. Diarrhea, rule out c.dif Plan: - Continue to monitor on telemetry - Continued IV Unasyn today. Switch to PO Augmentin tomorrow per ID recs. Patient requires a total of 7 days of antibiotic therapy. Patient is on day 5 today. - Continue gabapentin, Keppra, topiramate, Depakote - Continue Protonix 40 mg IV daily - Continue Tylenol when necessary for pain - Hold off sedatives at this time - Continue nicotine 21 mg - Continue to monitor electrolytes - Follow up c.dif - Cardiology, cardiothoracic surgery, infectious disease, neurology on board. Appreciate recommendations. DVT prophylaxis: Alps Diet: Regular diet Code: Full code Problem List: 1. Altered mental state 2. Bradycardia 3. Pneumonia Pain Ratin Pain Location: back pain Pain Goal: Pain 4 or less Pain Plan: tylenol PRN Tomorrow's Labs & Rationales: cbc - infection bep
[2017-06-14 07:52] LABS: ABSOLUTE BASOPHIL COUNT 0 /CUMM (0.0-0.2); ABSOLUTE EOSINOPHIL COUNT 0.2 /CUMM (0.0-0.7); ABSOLUTE GRANULOCYTE CT 4.5 /CUMM (1.4-6.5); ABSOLUTE LYMPH COUNT 3.5 /CUMM (1.2-3.4); BASOPHIL % 0.3 % (0.0-2.0); EOSINOPHIL % 1.7 % (0-5); GRANULOCYTE % 49.3 % (42.2-75.2); HEMATOCRIT 38.3 % (42-52); MEAN CORPUSCULAR HGB 30.9 PG (27.0-31.0); MEAN CORPUSCULAR HGB CONC 34.5 G/DL (33.0-37.0); MEAN CORPUSCULAR VOLUME 89.6 FL (80.0-94.0); MEAN PLATELET VOLUME 8.1 FL (7.4-10.4); PLATELET COUNT 235 /CUMM (130-400); RBC DISTRIBUTION WIDTH 13.9 % (11.5-14.5); RED BLOOD CELL CT 4.28 /CUMM (4.70-6.10); WHITE BLOOD CELL COUNT 9.1 /CUMM (4.8-10.8)
--- NOTE | 2017-06-14 11:00 | PN- Cardiology ---
Subjective Subjective: Feeling well. No chest pain. No palpitations. No diaphoresis. Episodes of sinus rhythm and junctional bradycardia on telemetry. Objective Vital Signs and I&Os Vital Signs Date Time Temp Pulse Resp B/P B/P Pulse O2 O2 Flow FiO2 Mean Ox Delivery Rate 06/14 0000 Room Air 06/13 2305 98.7 48 16 102/78 98 06/13 1447 98.0 54 16 100/66 98 Room Air Intake & Output 06/14 1600 06/14 0800 06/14 0000 06/13 1600 06/13 0806/13 0000 Intake Total 260 1030 1420 340 590 Output Total 198 796 0992 750 975 Balance -540 730 120 -410 -385 Intake, IV 250 460 140 110 Intake, Oral 260 780 960 200 480 Number 1 5 2 1 Bowel Movements Output, Urine 156 209 0168 750 975 Physical Exam: Gen: NAD HEENT: normal Lungs: clear to auscultation, normal resp. effort Heart: RRR, S1, S2, 1 out of 6 systolic murmur Abdomen: Soft, nontender, no masses Extremities: No clubbing, cyanosis, or edema. Neuro: Alert and oriented x 3, cranial nerves intact Current Medications: Current Medications Sig/Onur Start time Last Medication Dose Route Stop Time Status Admin Acetaminophen 1,000 MG .STK-MED ONE 06/14 0015 DC IV 06/14 0016 Acetaminophen 650 MG Q6P PRN 06/09 1929 AC 06/12 PO 2131 Acetaminophen 1,000 MG Q6P PRN 06/09 193 AC 06/14 IV 0019 Ampicillin Sodium/ 1,500 MG Q6 06/14 1200 AC Sulbactam Sodium IV Sodium Chloride 100 ML Ampicillin Sodium/ 1,500 MG Q6 06/09 1928 DC 06/13 Sulbactam Sodium IV 1723 Sodium Chloride 100 ML Chlorhexidine 15 ML DAILY 06/12 1400 AC 06/14 Gluconate PO 1014 Divalproex Sodium 750 MG BID 06/11 1000 AC 06/14 PO 1013 Gabapentin 800 MG TID 06/10 1600 AC 06/14 PO 1013 Guaifenesin 10 ML Q6P PRN 06/09 2215 AC 06/13 PO 0852 Levetiracetam 1,500 MG BID 06/100 AC 06/14 PO 1014 Magnesium Sulfate 1 GM Q2H 06/13 1100 DC 06/13 Dextrose/Water 100 ML IV 06/13 1459 1420 Nicotine 21 MG DAILY 06/09 1930 AC 06/13 TOP 0853 Pantoprazole Sodium 40 MG DAILY 06/09 193 AC 06/14 IV 1013 Potassium Chloride 40 MEQ ONCE ONE 06/13 2000 DC 06/13 PO 06/13 Potassium Chloride 40 MEQ ONCE ONE 06/13 1245 DC 06/13 PO 06/13 1246 1420 Potassium Chloride 40 MEQ ONCE ONE 06/13 1145 CAN PO 06/13 1146 Topiramate 100 MG QAM 06/11 1000 AC 06/14 PO 1014 Topiramate 150 MG QPM 06/10 2199 AC 06/13 PO 2116 Vitamin A/Vitamin D 1 SARWAT BID 06/12 1356 AC 06/14 TOP 1014 Zinc Oxide 1 SARWAT BID 06/12 1356 AC 06/14 TOP 1014 Results Last 48 Hrs of Labs/Mics: Laboratory Tests 06/14/17 0629: ESR Westergren 10 06/14/17 0629: Anion Gap 11, Estimated GFR > 60, BUN/Creatinine Ratio 15.0, Magnesium 2.0, CBC w Diff NO MAN DIFF REQ, RBC 4.28 L, MCV 89.6, MCH 30.9, MCHC 34.5, RDW 13.9, MPV 8.1, Gran % 49.3, Lymphocytes % 38.3, Monocytes % 10.4 H, Eosinophils % 1.7 , Basophils % 0.3, Absolute Granulocytes 4.5, Absolute Lymphocytes 3.5 H, Absolute Monocytes 1.0 H, Absolute Eosinophils 0.2, Absolute Basophils 0 06/13/17 0638: Anion Gap 12, Estimated GFR > 60, BUN/Creatinine Ratio 15.0, Phosphorus 3.5, Magnesium 1.7, CBC w Diff NO MAN DIFF REQ, RBC 4.23 L, MCV 90.1, MCH 30.5, MCHC 33.8, RDW 13.8, MPV 8.6, Gran % 58.9, Lymphocytes % 30.7, Monocytes % 9.2, Eosinophils % 0.9, Basophils % 0.3, Absolute Granulocytes 5.4, Absolute Lymphocytes 2.8, Absolute Monocytes 0.9 H, Absolute Eosinophils 0.1, Absolute Basophils 0 Assessment/Plan Assessment/Plan Assessment: 1. Bradycardia; sinus and junctional 2. Ventricular ectopy 3. Chronic opiate use 4. Altered mental status - improved 5. Hypokalemia - improved 6. Seizure disorder Plan: * Continue current medications. * Permanent pacemaker planned for today if approved by ID Continue telemetry? Yes
--- NOTE | 2017-06-14 13:58 | Cons- Thoracic Surgery ---
General Information and HPI Consulting Request Date of Consult: 06/13/17 Requested By: Pooja CHAVEZ,Chiki Long Reason for Consult: Evaluate for permanent pacemaker placement for symptomatic bradycardia Source of Information: patient, old records, PCP Exam Limitations: no limitations History of Present Illness: The patient is a 51-year-old gentleman who is been followed as an outpatient for bradycardia. He has been managed with medication adjustment and has never had any symptomatology. He was admitted on 06/09/2017 with an episode in the emergency room of him being lethargic and at the time was bradycardic. He was given reversal agents for narcotics and for benzodiazepines with some improvement in his mental status. However because of the association of his lethargy and unarousable state with his bradycardia his department mgr feels that a permanent pacemaker is indicated because of his episodic bradycardia with junctional rhythm. Allergies/Medications Allergies: Coded Allergies: Sulfa (Sulfonamide Antibiotics) (Intermediate, HIVES 06/09/17) acetaminophen (From VICODIN) (Intermediate, HIVES 06/09/17) hydrocodone (From VICODIN) (Intermediate, HIVES 06/09/17) tramadol (Intermediate, HIVES 06/09/17) aripiprazole (Intermediate, RASH PER PT. 06/09/17) Home Med List: Amitriptyline HCl 25 MG TABLET 1 TAB PO QPM psychiatric/sleep Divalproex Sodium (Divalproex Sodium ER) 250 MG TAB.ER.24H 3 TAB PO TID seizures (Reported) Gabapentin 400 MG CAPSULE 3 CAP PO TID SEIZURES (Reported) Levetiracetam (Keppra) 750 MG TABLET 1,500 MG PO BID SEIZURES (Reported) Magnesium Oxide 400 MG TABLET 1 TAB PO BID SUPPLEMENT (Reported) Melatonin 3 MG TABLET 2 TAB PO QHS SLEEP (Reported) Morphine Sulfate 15 MG TABLET 1 TAB PO BID PRN PAIN (Reported) Pantoprazole Sodium 40 MG TABLET.DR 1 TAB PO DAILY GI (Reported) Topiramate (Topamax) 50 MG TABLET 2 TAB PO QAM seizure (Reported) Topiramate (Topamax) 50 MG TABLET 3 TAB PO QPM seizure (Reported) Current Medications: Current Medications Sig/Onur Start time Last Medication Dose Route Stop Time Status Admin Acetaminophen 1,000 MG .STK-MED ONE 06/14 14 DC IV 06/14 15 Acetaminophen 650 MG Q6P PRN 06/09 1930 AC 06/12 PO 2131 Acetaminophen 1,000 MG Q6P PRN 06/09 1930 AC 06/14 IV 0019 Ampicillin Sodium/ 1,500 MG Q6 06/14 1200 AC Sulbactam Sodium IV Sodium Chloride 100 ML Ampicillin Sodium/ 1,500 MG Q6 06/09 1928 DC 06/13 Sulbactam Sodium IV 1723 Sodium Chloride 100 ML Chlorhexidine 15 ML DAILY 06/12 1400 AC 06/14 Gluconate PO 1014 Divalproex Sodium 750 MG BID 06/11 1000 AC 06/14 PO 1013 Gabapentin 800 MG TID 06/10 1600 AC 06/14 PO 1013 Guaifenesin 10 ML Q6P PRN 06/09 2215 AC 06/13 PO 0852 Levetiracetam 1,500 MG BID 06/10 2200 AC 06/14 PO 1014 Magnesium Sulfate 1 GM Q2H 06/13 1100 DC 06/13 Dextrose/Water 100 ML IV 06/13 1459 1420 Nicotine 21 MG DAILY 06/09 1930 AC 06/13 TOP 0853 Pantoprazole Sodium 40 MG DAILY 06/09 1934 AC 06/14 IV 1013 Potassium Chloride 40 MEQ ONCE ONE 06/13 2000 DC 06/13 PO 06/13 2000 2117 Topiramate 100 MG QAM 06/11 1000 AC 06/14 PO 1014 Topiramate 150 MG QPM 06/10 2200 AC 06/13 PO 2116 Vitamin A/Vitamin D 1 SARWAT BID 06/12 1356 AC 06/14 TOP 1014 Zinc Oxide 1 SARWAT BID 06/12 1356 AC 06/14 TOP 1014 Past History Medical History Neurological: seizure EENT: NONE Cardiovascular: NONE Respiratory: COPD Gastrointestinal: GERD, PANCREATITIS Hepatic: NONE Renal: NONE Musculoskeletal: chronic back pain, osteoarthritis, 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 Ambulation: independent IADLs Independent: shopping, housework, finances, food prep, telephone, transportation , medication admin. Review of Systems Review of Systems: Review systems is notable for him currently being asymptomatic from a cardiovascular standpoint. He has had no syncopal or presyncopal episodes while in the hospital. He is had no chest pain and no palpitations. There've been no fevers night sweats or chills. The Respess 12 point review of systems unremarkable. Exam & Diagnostic Data Vital Signs and I&O Vital Signs Date Time Temp Pulse Resp B/P B/P Pulse O2 O2 Flow FiO2 Mean Ox Delivery Rate 06/14 0000 Room Air 06/13 2305 98.7 48 16 102/78 98 06/13 1447 98.0 54 16 100/66 98 Room Air Intake & Output 06/14 1600 06/14 0800 06/14 0000 06/13 1600 06/13 0800 06/13 0000 Intake Total 260 1030 1420 340 590 Output Total 228 248 2728 750 975 Balance -540 730 120 -410 -385 Intake, IV 250 460 140 110 Intake, Oral 260 780 960 200 480 Number 1 5 2 1 Bowel Movements Output, Urine 577 057 0628 750 975 Physical Exam: On physical examination he appears well. His skin is warm and well perfused no suspicious lesions noted. The sclerae are anicteric and his mucous membranes are moist. There is no cervical or subclavicular lymphadenopathy. His breath sounds are clear and full bilaterally with no wheezes or rhonchi noted. His cardiac exam shows regular rhythm and rate no murmurs or sounds. His abdomen is soft and nontender with no masses. His periphery shows no cyanosis clubbing or edema. His neurologic exam is grossly normal for motor and sensory function. Last 24 Hours of Labs: Laboratory Tests 06/14 06/14 0629 0629 Chemistry Sodium (137 - 145 mmol/L) 140 Potassium (3.5 - 5.1 mmol/L) 4.0 Chloride (98 - 107 mmol/L) 112 H Carbon Dioxide (22 - 30 mmol/L) 17 L Anion Gap (5 - 16) 11 BUN (9 - 20 mg/dL) 9 Creatinine (0.7 - 1.2 mg/dL) 0.6 L Estimated GFR (>60 ml/min) > 60 BUN/Creatinine Ratio (7 - 25 %) 15.0 Magnesium (1.6 - 2.3 mg/dL) 2.0 Hematology CBC w Diff NO MAN DIFF REQ WBC (4.8 - 10.8 /CUMM) 9.1 RBC (4.70 - 6.10 /CUMM) 4.28 L Hgb (14.0 - 18.0 G/DL) 13.2 L Hct (42 - 52 %) 38.3 L MCV (80.0 - 94.0 FL) 89.6 MCH (27.0 - 31.0 PG) 30.9 MCHC (33.0 - 37.0 G/DL) 34.5 RDW (11.5 - 14.5 %) 13.9 Plt Count (130 - 400 /CUMM) 235 MPV (7.4 - 10.4 FL) 8.1 Gran % (42.2 - 75.2 %) 49.3 Lymphocytes % (20.5 - 51.1 %) 38.3 Monocytes % (1.7 - 9.3 %) 10.4 H Eosinophils % (0 - 5 %) 1.7 Basophils % (0.0 - 2.0 %) 0.3 Absolute Granulocytes (1.4 - 6.5 /CUMM) 4.5 Absolute Lymphocytes (1.2 - 3.4 /CUMM) 3.5 H Absolute Monocytes (0.10 - 0.60 /CUMM) 1.0 H Absolute Eosinophils (0.0 - 0.7 /CUMM) 0.2 Absolute Basophils (0.0 - 0.2 /CUMM) 0 ESR Westergren (0 - 10 MM) 10 Other Results: Strips from the monitor were review with cardiology showing episodes of junctional bradycardia with a heart rate in the 20s. He has episodic sick sinus syndrome a junctional rhythm. Assessment/Plan Assessment/Plan 51-year-old gentleman with symptomatic bradycardia and an intermittent junctional bradycardia. I think a permanent pacemaker is indicated and we will go ahead with an MRI compatible device. I explained the risks and benefits of the procedure including bleeding infection pneumothorax and cardiac perforation. The patient understands and agrees. As long as infectious diseases no contraindication we'll proceed on Wednesday morning with MRI compatible permanent pacemaker placement. Consult Acknowledgment - Thank you for your consult request.
--- NOTE | 2017-06-14 14:03 | Operative Report ---
Operative/Inv Procedure Report Surgery Date: 06/14/17 Name of Procedure: MRI compatible dual-chamber pacemaker Pre-Operative Diagnosis: Symptomatic bradycardia with occasional junctional bradycardia Post-Operative Diagnosis: Same Estimated Blood Loss: scant Surgeon/Senior Engineering Manager: Arias Duvall Anesthesia: local monitored anesthesi Operative/Procedure Note Note: After placement of monitoring lines the patient's left shoulder and upper chest were prepped and draped in a sterile fashion. 1% lidocaine was used local anesthetic. Incision was made in the deltopectoral groove and carried down to prepectoralis fascia. The cephalic vein is found as a fairly superficial vein. It was dissected free and encircled with silk ties and occluded proximally with surgical clips. A venotomy was made and a guidewire was passed into the right atrium under fluoroscopic guidance. 2 wires were passed and 1 wire was retained. A 7 [place] sheath was passed over one of the wires and a Medtronic lead model #[id number] MRI compatible lead was advanced into the pulmonary outflow tract. It was withdrawn into the right ventricular chamber and positioned at the apex. R waves were measured at 10.8 mV. The pacing threshold was at 0.4 V with a current of 0.2 mA and an impedance of 1456 ohms. A sheath was passed over the retained wire and a preformed J atrial lead was passed into the right atrium. We were unable to get position in the right atrial appendage with the passive fixation lead so that lead was changed to an active fixation Medtronic model #[id number] screw-in type lead. The lead was positioned in the right atrial appendage and screwed into the atrial wall with a preformed J stylette in position. P waves were measured at 5.2 mV. The patient threshold was 0.8 V with a current of 1.2 mA and impedance of 827 ohms. Out vein and then secured to the prepectoralis fascia. A pacemaker pocket was made and was irrigated with antibiotic irrigation. The leads were then connected to a Medtronic MRI compatible dual-chamber pacemaker. Hemostasis was achieved with electrocautery and surgical clips. The wound was closed in layers with a running Vicryl suture followed by running Vicryl subcuticular suture. It was dressed with a dry sterile dressing and a pressure dressing. The patient tolerated procedure well and was brought to the recovery room awake in stable condition. CC: Pooja CHAVEZ,Chiki Long; Roxann Espinosa MD
--- NOTE | 2017-06-14 15:09 | RADIOLOGY REPORT ---
EXAMINATION: XR PORTABLE CHEST CLINICAL INFORMATION: 51-year-old male patient status post pacemaker COMPARISON: Preop chest x-ray done 06/11/2017. TECHNIQUE: Portable AP portable semierect view of the chest was obtained in the PACU. FINDINGS: There are remains normal in size. A left pectoral pacemaker generator has been placed, one wire which is in the right atrium and the other the right ventricle. No pneumothorax or hemothorax is seen. The lungs remain clear of significant atelectasis. Very subtle interstitial edema is seen in both costophrenic sulci but there is no airspace edema. IMPRESSION: 1. No pneumothorax status post left pectoral pacemaker placement. 2. Very minimal residual fluid representing interstitial edema located in both lateral costophrenic sulci.
--- NOTE | 2017-06-14 15:48 | PN- Thoracic Surgery ---
Subjective Subjective: post-op check in pacu pt in bed with mild pain around op site. denies palpitations/cp/sob. denies n/v. denies numbness or tingling in left upper extremity. Objective Vital Signs and I&Os Vital Signs Date Time Temp Pulse Resp B/P B/P Pulse O2 O2 Flow FiO2 Mean Ox Delivery Rate 06/14 0000 Room Air 06/13 2305 98.7 48 16 102/78 98 Intake & Output 06/14 0806/14 0000 06/13 0806/13 0000 Intake Total 30 260 1030 1420 340 590 Output Total 820 377 3581 750 975 Balance 30 -540 730 120 -410 -385 Intake, IV 250 460 140 110 Intake, Oral 30 260 780 960 200 480 Number 1 1 5 2 1 Bowel Movements Output, Urine 380 390 1434 750 975 Physical Exam: gen-nad resp-clear. breath sounds equal bilaterally chest wall- dressing over left shoulder clean and dry. soft, appropriately tender. distal sensory and motor function intact. left arm in sling cardio- rrr abd- soft, nt Current Medications: Current Medications Sig/Onur Start time Last Medication Dose Route Stop Time Status Admin Acetaminophen 1,000 MG .STK-MED ONE 06/14 0015 DC IV 06/14 0016 Acetaminophen 650 MG Q6P PRN 06/09 1929 AC 06/12 PO 2131 Acetaminophen 1,000 MG Q6P PRN 06/09 1929 AC 06/14 IV 0019 Ampicillin Sodium/ 1,500 MG Q6 06/14 1200 AC Sulbactam Sodium IV Sodium Chloride 100 ML Ampicillin Sodium/ 1,500 MG Q6 06/09 1928 DC 06/13 Sulbactam Sodium IV 1723 Sodium Chloride 100 ML Chlorhexidine 15 ML DAILY 06/12 1400 AC 06/14 Gluconate PO 1014 Divalproex Sodium 750 MG BID 06/11 1000 AC 06/14 PO 1013 Gabapentin 800 MG TID 06/10 1600 AC 06/14 PO 1013 Guaifenesin 10 ML Q6P PRN 06/09 2215 AC 06/13 PO 0852 Levetiracetam 1,500 MG BID 06/100 AC 06/14 PO 1014 Nicotine 21 MG DAILY 06/09 1929 AC 06/13 TOP 0853 Oxycodone HCl 5 MG Q4 HRS NEEDED PRN 06/14 1415 AC PO Pantoprazole Sodium 40 MG DAILY 06/09 1934 AC 06/14 IV 1013 Potassium Chloride 40 MEQ ONCE ONE 06/13 1999 DC 06/13 PO 06/13 Topiramate 100 MG QAM 06/11 1000 AC 06/14 PO 1014 Topiramate 150 MG QPM 06/10 2200 AC 06/13 PO 2116 Vitamin A/Vitamin D 1 SARWAT BID 06/12 1356 AC 06/14 TOP 1014 Zinc Oxide 1 SARWAT BID 06/12 1356 AC 06/14 TOP 1014 Results Last 48 Hours of Labs: Laboratory Tests 06/14 06/14 0629 0629 Chemistry Sodium (137 - 145 mmol/L) 140 Potassium (3.5 - 5.1 mmol/L) 4.0 Chloride (98 - 107 mmol/L) 112 H Carbon Dioxide (22 - 30 mmol/L) 17 L Anion Gap (5 - 16) 11 BUN (9 - 20 mg/dL) 9 Creatinine (0.7 - 1.2 mg/dL) 0.6 L Estimated GFR (>60 ml/min) > 60 BUN/Creatinine Ratio (7 - 25 %) 15.0 Magnesium (1.6 - 2.3 mg/dL) 2.0 Hematology CBC w Diff NO MAN DIFF REQ WBC (4.8 - 10.8 /CUMM) 9.1 RBC (4.70 - 6.10 /CUMM) 4.28 L Hgb (14.0 - 18.0 G/DL) 13.2 L Hct (42 - 52 %) 38.3 L MCV (80.0 - 94.0 FL) 89.6 MCH (27.0 - 31.0 PG) 30.9 MCHC (33.0 - 37.0 G/DL) 34.5 RDW (11.5 - 14.5 %) 13.9 Plt Count (130 - 400 /CUMM) 235 MPV (7.4 - 10.4 FL) 8.1 Gran % (42.2 - 75.2 %) 49.3 Lymphocytes % (20.5 - 51.1 %) 38.3 Monocytes % (1.7 - 9.3 %) 10.4 H Eosinophils % (0 - 5 %) 1.7 Basophils % (0.0 - 2.0 %) 0.3 Absolute Granulocytes (1.4 - 6.5 /CUMM) 4.5 Absolute Lymphocytes (1.2 - 3.4 /CUMM) 3.5 H Absolute Monocytes (0.10 - 0.60 /CUMM) 1.0 H Absolute Eosinophils (0.0 - 0.7 /CUMM) 0.2 Absolute Basophils (0.0 - 0.2 /CUMM) 0 ESR Westergren (0 - 10 MM) 10 06/13 0638 Chemistry Sodium (137 - 145 mmol/L) 142 Potassium (3.5 - 5.1 mmol/L) 3.4 L Chloride (98 - 107 mmol/L) 112 H Carbon Dioxide (22 - 30 mmol/L) 18 L Anion Gap (5 - 16) 12 BUN (9 - 20 mg/dL) 9 Creatinine (0.7 - 1.2 mg/dL) 0.6 L Estimated GFR (>60 ml/min) > 60 BUN/Creatinine Ratio (7 - 25 %) 15.0 Phosphorus (2.5 - 4.5 mg/dL) 3.5 Magnesium (1.6 - 2.3 mg/dL) 1.7 Hematology CBC w Diff NO MAN DIFF REQ WBC (4.8 - 10.8 /CUMM) 9.2 RBC (4.70 - 6.10 /CUMM) 4.23 L Hgb (14.0 - 18.0 G/DL) 12.9 L Hct (42 - 52 %) 38.1 L MCV (80.0 - 94.0 FL) 90.1 MCH (27.0 - 31.0 PG) 30.5 MCHC (33.0 - 37.0 G/DL) 33.8 RDW (11.5 - 14.5 %) 13.8 Plt Count (130 - 400 /CUMM) 201 MPV (7.4 - 10.4 FL) 8.6 Gran % (42.2 - 75.2 %) 58.9 Lymphocytes % (20.5 - 51.1 %) 30.7 Monocytes % (1.7 - 9.3 %) 9.2 Eosinophils % (0 - 5 %) 0.9 Basophils % (0.0 - 2.0 %) 0.3 Absolute Granulocytes (1.4 - 6.5 /CUMM) 5.4 Absolute Lymphocytes (1.2 - 3.4 /CUMM) 2.8 Absolute Monocytes (0.10 - 0.60 /CUMM) 0.9 H Absolute Eosinophils (0.0 - 0.7 /CUMM) 0.1 Absolute Basophils (0.0 - 0.2 /CUMM) 0 Recent Imaging Studies: EXAMINATION: XR PORTABLE CHEST CLINICAL INFORMATION: 51-year-old male patient status post pacemaker COMPARISON: Preop chest x-ray done 06/11/2017. TECHNIQUE: Portable AP portable semierect view of the chest was obtained in the PACU. FINDINGS: There are remains normal in size. A left pectoral pacemaker generator has been placed, one wire which is in the right atrium and the other the right ventricle. No pneumothorax or hemothorax is seen. The lungs remain clear of significant atelectasis. Very subtle interstitial edema is seen in both costophrenic sulci but there is no airspace edema. IMPRESSION: 1. No pneumothorax status post left pectoral pacemaker placement. 2. Very minimal residual fluid representing interstitial edema located in both lateral costophrenic sulci. DICTATED BY: Aj Serrato MD DATE/TIME DICTATED:06/14/171458 OVERNIGHT CASHIER:ARIELLE DATE/TIME TRANSCRIBED:06/14/171458 Assessment/Plan Assessment/Plan 51yo M SP PPM pod0 left arm in sling for now to remain on tele for now reg diet cont medical management Core Measures Venous Thromboembolism VTE Risk Factors Age>40 No Mechanical VTE Prophylaxis d/t N/A MechProphylax Ordered No VTE Pharm Prophylaxis d/t NA PharmProphylax ordered
[2017-06-14 16:19] VITALS: BP 120/60
[2017-06-14 22:16] VITALS: BP 100/70
--- NOTE | 2017-06-14 23:19 | RADIOLOGY REPORT ---
EXAMINATION:\H\ \N\XR CHEST CLINICAL INFORMATION: Left pacemaker COMPARISON: 06/14/2017 TECHNIQUE: Single frontal fluoroscopic image of the chest. Total fluoroscopic time 902.7 seconds. FINDINGS: The single view demonstrates cardiac pacer leads overlying the right atrium and right ventricle. Spinal stimulator wiring noted. IMPRESSION: Fluoroscopic guidance for pacemaker lead placement.
--- NOTE | 2017-06-15 05:02 | PN- Housestaff ---
Mary CHAVEZ,Camille 06/15/17 0502: Subjective Follow-up For: AMS Sepsis secondary to aspiration pneumonia Bradycardia Tele-Events Since Last Visit: Heart rate 61, 0.08, PVCs Subjective: Patient was seen and examined today at bedside, he only reports pain in his left shoulder after we get the pacemaker yesterday and applying ice packs, he was also concerned about when he will be able to go home. He denies any fever, chills, chest pain, palpitation, nausea, vomiting, diarrhea or constipation Review of Systems Constitutional: Denies: no symptoms. Musculoskeletal: Reports: see HPI. Objective Last 24 Hrs of Vital Signs/I&O Vital Signs Date Time Temp Pulse Resp B/P B/P Pulse O2 O2 Flow FiO2 Mean Ox Delivery Rate 06/15 0703 98.7 64 20 102/68 96 Room Air 06/14 2216 99.1 68 20 100/70 95 06/14 1619 97.7 70 20 120/60 100 Intake & Output 06/15 1600 06/15 0800 06/15 0000 Intake Total 440 210 Output Total 550 200 Balance -110 10 Intake, IV 140 10 Intake, Oral 300 200 Number 1 Bowel Movements Output, Urine 550 200 Physical Exam General Appearance: Alert, Oriented X3, Cooperative, No Acute Distress Skin: No Rashes, No Breakdown, No Significant Lesion Neck: Supple, No JVD Cardiovascular: Normal S1, Normal S2 Lungs: Clear to Auscultation Abdomen: Normal Bowel Sounds, Soft, No Tenderness Neurological: Normal Speech, Strength at 5/5 X4 Ext, Normal Tone Extremities: clean , non soiled surgical dressing on the right shoulder, Vascular: Normal Pulses Assessment/Plan Assessment: Patient is a 51-year-old female with past medical history of chronic back pain status post neurostimulator and opiate therapy, seizures, GERD, COPD, anxiety, depression who presented with altered mental status and was initially admitted to general medicine for sepsis secondary to left lower lobe pneumonia, altered mental status attributed to opiate/benzo use versus seizures. On day of admission patient had a rapid response for unresponsiveness. Patient received Narcan with minimal response, IV fluids, IV Keppra and was transferred to ICU for closer monitoring. Patient was seen by cardiology, pulmonology, infectious disease. There was concern for meningitis initially and patient was started on empiric IV antibiotics and dexamethasone. Patient was seen by infectious disease and an LP was deemed necessary. Patient's altered mental status was attributed to medications including opiates and benzos. Patient was found to be bradycardic to the 30s to 40s. Patient is being followed by cardiology and cardiothoracic surgery. Patient had pacemaker placed today by cardiothoracic surgery. Postop chest x-ray shows no pneumothorax with left pectoral pacemaker placement. 1. AMS likely drug-induced secondary to opiates and benzos- Improved 2. Sinus Bradycardia S/P Pacemaker placement- HR improved 3. Aspiration pneumonia 4. Electrolyte abnormalities: Hypokalemia, hypomagnesemia 5. History of seizures 6. Diarrhea, c.dif negative Plan: - Continue to monitor on telemetry -Start PO Augmentin per ID recs. Patient requires a total of 7 days of antibiotic therapy. Patient is on day 6 today. - Continue gabapentin, Keppra, topiramate, Depakote - Continue Protonix 40 mg IV daily - Continue Tylenol when necessary for pain - Hold off sedatives at this time - Continue nicotine 21 mg - Continue to monitor electrolytes - Follow up c.dif - Cardiology, cardiothoracic surgery, infectious disease, neurology on board. Appreciate recommendations. DVT prophylaxis: Alps Diet: Regular diet Code: Full code Problem List: 1. Altered mental state 2. Pneumonia Pain Ratin Pain Location: N/A Pain Goal: Remain pain free Pain Plan: pathway Tomorrow's Labs & Rationales: cbc bep Justin Perez MD 06/15/17 2227: Attending MD Review Statement Attending Statement Attending MD Statement: examined this patient, discuss w/resident/PA/POLE PEELING MACHINE OPERATOR HELPER, agreed w/resident/PA/POLE PEELING MACHINE OPERATOR HELPER, reviewed EMR data (avail), discussed with nursing, discussed with case mgmt, reviewed images, amended to note Attending Assessment/Plan: The patient was seen and discussed with house staff. Appreciate ID follow-up and PT. OK to discharge today to [facility]).
[2017-06-15 07:03] VITALS: BP 102/68
--- NOTE | 2017-06-15 08:11 | Patient Discharge Instructions ---
Discharge Instructions General Discharge Information You were seen/treated for: AMS Sepsis secondary to aspiration pneumonia Bradycardia Special Instructions: 1- please follow up with your primary care doctor in 1 week of discharge 2please follow up with orthopedic assistant in 1 week of discharge. Diet Continue normal diet: Yes Activity Full Activity/No Limits: Yes Acute Coronary Syndrome Inclusion Criteria At DC or during hospital stay patient has or had the following: ACS DIAGNOSIS No Discharge Core Measures Meds if any: Prescribed or Continued at Discharge Meds if any: NOT Prescribed or Continued at Discharge Congestive Heart Failure Inclusion Criteria At DC or during hospital stay patient has or had the following: CHF DIAGNOSIS No Discharge Core Measures Meds if any: Prescribed or Continued at Discharge Meds if any: NOT Prescribed or Continued at Discharge Cerebrovascular accident Inclusion Criteria At DC or during hospital stay patient has or had the following: CVA/TIA Diagnosis No Discharge Core Measures Meds if any: Prescribed or Continued at Discharge Meds if any: NOT Prescribed or Continued at Discharge Venous thromboembolism Inclusion Criteria VTE Diagnosis No VTE Type NONE VTE Confirmed by (Test) NONE Discharge Core Measures - Per Current guidelines, there needs to be overlap - treatment for the first 5 days of Warfarin therapy. - If discharged on Warfarin prior to 5 days of - overlap therapy, the patient will need to be - assessed for post discharge needs including - *Post discharge parental anticoagulation - *Warfarin and/or parental anticoagulation education - *Follow up date to check INR post discharge At least 5 days overlap therapy as Inpatient No Meds if any: Prescribed or Continued at Discharge Note: Overlap Therapy is Warfarin and Anticoagulant Meds if any: NOT Prescribed or Continued at Discharge
[2017-06-15 08:24] LABS: ABSOLUTE BASOPHIL COUNT 0.1 /CUMM (0.0-0.2); ABSOLUTE EOSINOPHIL COUNT 0.6 /CUMM (0.0-0.7); ABSOLUTE GRANULOCYTE CT 7.2 /CUMM (1.4-6.5); ABSOLUTE LYMPH COUNT 3.1 /CUMM (1.2-3.4); ABSOLUTE MONOCYTE COUNT 1.5 /CUMM (0.10-0.60); BASOPHIL % 0.5 % (0.0-2.0); EOSINOPHIL % 4.7 % (0-5); GRANULOCYTE % 57.9 % (42.2-75.2); HEMATOCRIT 41.7 % (42-52); MEAN CORPUSCULAR HGB 30.4 PG (27.0-31.0); MEAN CORPUSCULAR HGB CONC 33.9 G/DL (33.0-37.0); MEAN CORPUSCULAR VOLUME 89.7 FL (80.0-94.0); MEAN PLATELET VOLUME 8.3 FL (7.4-10.4); PLATELET COUNT 268 /CUMM (130-400); RBC DISTRIBUTION WIDTH 13.7 % (11.5-14.5); RED BLOOD CELL CT 4.65 /CUMM (4.70-6.10); WHITE BLOOD CELL COUNT 12.4 /CUMM (4.8-10.8)
--- NOTE | 2017-06-15 11:01 | PN- Cardiology ---
Subjective Subjective: Doing well status post permanent pacemaker placement yesterday. No chest pain. No shortness of breath. No palpitations. No diaphoresis. No lightheadedness or dizziness. No nausea or vomiting. Objective Vital Signs and I&Os Vital Signs Date Time Temp Pulse Resp B/P B/P Pulse O2 O2 Flow FiO2 Mean Ox Delivery Rate 06/15 0703 98.7 64 20 102/68 96 Room Air 06/14 2215 99.1 68 20 100/70 95 06/14 1619 97.7 70 20 120/60 100 Intake & Output 06/15 1600 06/15 0800 06/15 0000 06/14 1600 06/14 0000 Intake Total 989 559 1715 260 1030 Output Total 550 200 350 800 300 Balance -110 10 680 -540 730 Intake, IV 979 56 2532 250 Intake, Oral 300 200 30 260 780 Number 1 1 1 Bowel Movements Output, Urine 550 200 350 800 300 Physical Exam: Gen: NAD HEENT: normal Lungs: clear to auscultation, normal resp. effort Heart: RRR, S1, S2, 1 out of 6 systolic murmur Abdomen: Soft, nontender, no masses Extremities: No clubbing, cyanosis, or edema. Neuro: Alert and oriented x 3, cranial nerves intact Current Medications: Current Medications Sig/Onur Start time Last Medication Dose Route Stop Time Status Admin Acetaminophen 650 MG Q6P PRN 06/09 1929 AC 06/15 PO 0433 Acetaminophen 1,000 MG Q6P PRN 06/09 1929 AC 06/14 IV 0019 Amoxicillin/ 875 MG Q12 06/15 2199 AC Clavulanate Potassium PO 06/16 2200 Ampicillin Sodium/ 1,500 MG Q6 06/14 1200 DC 06/15 Sulbactam Sodium IV 0505 Sodium Chloride 100 ML Chlorhexidine 15 ML DAILY 06/12 1400 AC 06/15 Gluconate PO 1002 Divalproex Sodium 750 MG BID 06/11 1000 AC 06/15 PO 1000 Fentanyl Citrate 100 MCG .STK-MED ONE 06/14 1131 DC IM 06/14 1132 Gabapentin 800 MG TID 06/10 1600 AC 06/15 PO 1000 Guaifenesin 10 ML Q6P PRN 06/09 2215 AC 06/13 PO 0852 Levetiracetam 1,500 MG BID 06/10 2199 AC 06/15 PO 1002 Midazolam HCl 4 MG .STK-MED ONE 06/14 1131 DC IM 06/14 1132 Nicotine 21 MG DAILY 06/090 06/15 TOP 1001 Oxycodone HCl 5 MG Q4 HRS NEEDED PRN 06/14 1415 AC PO Pantoprazole Sodium 40 MG DAILY 06/09 193 AC 06/15 IV 1002 Topiramate 100 MG QAM 06/11 1000 AC 06/15 PO 1000 Topiramate 150 MG QPM 06/10 2199 AC 06/14 PO 2202 Vitamin A/Vitamin D 1 SARWAT BID 06/12 1356 AC 06/15 TOP 1002 Zinc Oxide 1 SARWAT BID 06/12 1356 AC 06/15 TOP 1002 Results Last 48 Hrs of Labs/Mics: Laboratory Tests 06/15/17 0645: Anion Gap 12, Estimated GFR > 60, BUN/Creatinine Ratio 13.3, CBC w Diff NO MAN DIFF REQ, RBC 4.65 L, MCV 89.7, MCH 30.4, MCHC 33.9, RDW 13.7, MPV 8.3, Gran % 57.9, Lymphocytes % 25.0, Monocytes % 11.9 H, Eosinophils % 4.7, Basophils % 0.5, Absolute Granulocytes 7.2 H, Absolute Lymphocytes 3.1, Absolute Monocytes 1.5 H, Absolute Eosinophils 0.6, Absolute Basophils 0.1 06/14/17 0629: ESR Westergren 10 06/14/17 0629: Anion Gap 11, Estimated GFR > 60, BUN/Creatinine Ratio 15.0, Magnesium 2.0, CBC w Diff NO MAN DIFF REQ, RBC 4.28 L, MCV 89.6, MCH 30.9, MCHC 34.5, RDW 13.9, MPV 8.1, Gran % 49.3, Lymphocytes % 38.3, Monocytes % 10.4 H, Eosinophils % 1.7 , Basophils % 0.3, Absolute Granulocytes 4.5, Absolute Lymphocytes 3.5 H, Absolute Monocytes 1.0 H, Absolute Eosinophils 0.2, Absolute Basophils 0 Microbiology 06/13 1500 STOOL: Clostridium difficile Toxin A & B - COMP Recent Imaging Studies: Chest x-ray: 1. No pneumothorax status post left pectoral pacemaker placement. 2. Very minimal residual fluid representing interstitial edema located in both lateral costophrenic sulci. Assessment/Plan Assessment/Plan Assessment: 1. Bradycardia; sinus and junctional 2. Ventricular ectopy 3. Chronic opiate use 4. Altered mental status - improved 5. Hypokalemia - improved 6. Seizure disorder Plan: * Continue current medications. * Follow up in the office with Dr. Espinosa in 1 week. Continue telemetry? No
[2017-06-15 14:31] VITALS: BP 102/70
[2017-06-15] MEDS ORDERED: TYLENOL325 M1 PO (17:11)
--- NOTE | 2017-06-15 17:13 | PN- Infect Dx ---
Subjective Subjective: Anxious; s/p PPM; no fever or chills. Review of Systems Comments: 12 points reviewed as noted, otherwise negative. Objective Last 24 Hrs of Vital Signs/I&O Vital Signs Date Time Temp Pulse Resp B/P B/P Pulse O2 O2 Flow FiO2 Mean Ox Delivery Rate 06/15 1431 99.6 98 20 102/70 99 Room Air 06/15 1301 Room Air Room Air 06/15 0703 98.7 64 20 102/68 96 Room Air 06/14 2216 99.1 68 20 100/70 95 Intake & Output 06/15 1600 06/15 0800 06/15 0000 Intake Total 400 440 210 Output Total 800 550 200 Balance -400 -110 10 Intake, IV 140 10 Intake, Oral 400 300 200 Number 2 1 Bowel Movements Output, Urine 800 550 200 Physical Exam Other Physical Findings: He is awake and alert in no acute distress. Skin reveals no rash; PPM site covered by dressing; no erythema. HEENT negative. Neck is supple with no adenopathy. Lungs are clear. Heart regular rhythm with no murmur. Abdomen is soft, mildly tender on palpation over the lower abdomen, with no guarding or rebound, with positive bowel sounds. Back no CVA tenderness. Extremities no cyanosis, clubbing or edema; right hip neurostimulator in place with no inflammation at the site. Results Last 24 Hours of Lab Results: Laboratory Tests 06/15 0645 Chemistry Sodium (137 - 145 mmol/L) 140 Potassium (3.5 - 5.1 mmol/L) 3.8 Chloride (98 - 107 mmol/L) 109 H Carbon Dioxide (22 - 30 mmol/L) 19 L Anion Gap (5 - 16) 12 BUN (9 - 20 mg/dL) 8 L Creatinine (0.7 - 1.2 mg/dL) 0.6 L Estimated GFR (>60 ml/min) > 60 BUN/Creatinine Ratio (7 - 25 %) 13.3 Hematology CBC w Diff NO MAN DIFF REQ WBC (4.8 - 10.8 /CUMM) 12.4 H RBC (4.70 - 6.10 /CUMM) 4.65 L Hgb (14.0 - 18.0 G/DL) 14.1 Hct (42 - 52 %) 41.7 L MCV (80.0 - 94.0 FL) 89.7 MCH (27.0 - 31.0 PG) 30.4 MCHC (33.0 - 37.0 G/DL) 33.9 RDW (11.5 - 14.5 %) 13.7 Plt Count (130 - 400 /CUMM) 268 MPV (7.4 - 10.4 FL) 8.3 Gran % (42.2 - 75.2 %) 57.9 Lymphocytes % (20.5 - 51.1 %) 25.0 Monocytes % (1.7 - 9.3 %) 11.9 H Eosinophils % (0 - 5 %) 4.7 Basophils % (0.0 - 2.0 %) 0.5 Absolute Granulocytes (1.4 - 6.5 /CUMM) 7.2 H Absolute Lymphocytes (1.2 - 3.4 /CUMM) 3.1 Absolute Monocytes (0.10 - 0.60 /CUMM) 1.5 H Absolute Eosinophils (0.0 - 0.7 /CUMM) 0.6 Absolute Basophils (0.0 - 0.2 /CUMM) 0.1 Last 24 Hours of Michael Results: EC #: [id number] HAI: 06/09/17 STATUS: COMP RECD: 06/09/[address]: [facility] SOURCE: UPPER RESP ENTR: 06/09/[address]: Jaron CHAVEZ,Jaron SPDESC: NARES R ORDERED: ACT SURV NARES Procedure Result > ACTIVE SURVEILLANCE CULTURE Final 06/11/17 METH RESIST STAPH AUREUS ISOLATED Called to/Readback by ROSEMARY by LAB.[facility] 06/11/17811 Recent Imaging Studies: CXR TECHNIQUE: Portable AP portable semierect view of the chest was obtained in the PACU. FINDINGS: There are remains normal in size. A left pectoral pacemaker generator has been placed, one wire which is in the right atrium and the other the right ventricle. No pneumothorax or hemothorax is seen. The lungs remain clear of significant atelectasis. Very subtle interstitial edema is seen in both costophrenic sulci but there is no airspace edema. IMPRESSION: 1. No pneumothorax status post left pectoral pacemaker placement. 2. Very minimal residual fluid representing interstitial edema located in both lateral costophrenic sulci. DICTATED BY: Aj Serrato MD DATE/TIME DICTATED:06/14/171458 CASINO BEVERAGE SERVER:ARIELLE Assessment/Plan ID Impression: 51-year-old man with past medical history of GERD, seizures, chronic back pain status post neurostimulator and on chronic opiate therapy admitted 06/09 w/ lethargy, MS improved. No further fevers and with white blood cell count decreasing on Unasyn treatment for presumed aspiration pneumonia, with bibasilar densities on his chest x-ray and CT of the chest. His sinus bradycardia persists; POD#1 s/p pacemaker placement Mild leukocytosis MRSA colonized Suggestion: 1. Oral Augmentin 875 mg po bid in order to complete 7 d treatment (last day today). 2. CBC in am. 3. C.difficile assay if persistent diarrhea/worsening leukocytosis
[2017-06-15] MEDS ORDERED: GABAPENTIN400 M2 PO (17:15)
[2017-06-15] MEDS ORDERED: NICODERM CQ1 EAC2 TOP (17:16)
--- NOTE | 2017-06-15 17:31 | Discharge Summary ---
Visit Information Visit Dates Admission Date: 06/09/17 Discharge Date: 06/15/2017 Hospital Course Course Attending Physician: Justin Perez MD Primary Care Physician: Jaron CHAVEZ,Jaron Hospital Course: 51 yo M with h/o chronic back pain s/p neurostimulator and on opiate therapy ( Pain Mx Dr. Lambert), seizures, GERD, COPD, was brought in from home for left sided chest pain. ED course Vitals: Tmax 102.2, HR 80-100's, BP 103/65, sats 99% RA. Exam: lethargic, arousable to painful stimuli, was able to follow commands, pupils small but RTL, dry mucous membranes, Skin warm and dry, Neck supple, No obvious skin rash, Capillary refill ~2 secs, Chest b/l scattered rhonchi (L>R), no wheeze, Heart S1S2 regular, no murmurs, Abd soft, NT, LE: no edema, Neuro: moving all extremities, withdraws to painful stimuli. Neuro stimulator generator located on right hip. Labs: WBC 13.6, bands 7, BUN 21, creat 0.9, lactic acid 1.8, trop neg, lipase normal. UA normal. Urine tox positive for opiates (>4000), methadone, amphetamines, cannabis. Alcohol <10. Valproic acid 123.4. Initial AB.43/32/71/21 on RA. CXR: ill defined bibasilar opacities suggestive of pneumonia. Head CT: no acute pathology. CT CAP: left lower lobe infiltrate, small infiltrate/atelectasis at dependent right lung. Hemangioma right lobe of liver unchanged. Large volume of stool throughout colon. Degenerative spondylosis, neural stimulator probe central spinal canal, catheter at lower thoracic spine. EKG: baseline artifact being read as Afib, but appears sinus Symptomatic bradycardia with occasional junctional bradycardia -had MRI compatible dual-chamber pacemaker on 06/14/2017 - Patient was having persistent and intermittent worsening episodes of sinus and junctional bradycardia. Discussed with the dance critic/Dr. Duvall/ Dr. Churchill advised for, pacemaker. Patient had underwent dual-chamber pacemaker on 06/14/2017. Postoperative period was uneventful. We discharged him and advised to follow-up with dance critic within 1-2 weeks of discharge and cardiothoracic surgery within 2 weeks of discharge. Altered mental status -probably secondary to medication(opiates/benzos); probably postictal state Patient responded transiently to Narcan. He was admitted initially to general medicine floor. On 06/10/2017, he became unresponsive, and was given Narcan. He was transferred to ICU, for Narcan drip. Patient was not having any witnessed seizure activity.We obtained neurologic consult, who advised to check the valproic acid level(123 and 36.8) and continue Keppra, Depakote, Topamax. We decreased the dose of tablet gabapentin to 800 mg 3 times daily. Sepsis secondary to left lower lobe pneumonia - Patient was having transient fever and leukocytosis at the time of admission and chest x-ray was showing left lower lobe pneumonia. He consulted infectious disease specialist and advised for IV Unasyn followed by tablet Augmentin to complete a total course of 7 days. We will discharge patient with oral antibiotic and advised to follow-up with PCP within a week of discharge. Chronic Seizure - We discussed with a neurologist and adjusted the dose of the antiseizure medication. Chronic back pain - Patient does not require narcotics at the time of discharge. We will suggest to avoid narcotics as much as possible. Allergies: Coded Allergies: Sulfa (Sulfonamide Antibiotics) (Intermediate, HIVES 06/09/17) acetaminophen (From VICODIN) (Intermediate, HIVES 06/09/17) hydrocodone (From VICODIN) (Intermediate, HIVES 06/09/17) tramadol (Intermediate, HIVES 06/09/17) aripiprazole (Intermediate, RASH PER PT. 06/09/17) Disposition Summary Disposition Principal Diagnosis: 1. Symptomatic bradycardia with occasional junctional bradycardia -had MRI compatible dual-chamber pacemaker on 06/14/2017 2. Sepsis, left lower lobe pneumonia aspiration 3. Altered mental status secondary to opiate use/post ictal state Additional Diagnosis: Chronic back pain on narcotic pain medication History of seizures Discharge Disposition: SNF Discharge Instructions General Discharge Information Code Status: Full Code Patient's Diet: Heart healthy diet Patient's Activity: As tolerated with assistance Follow-Up Instructions/Appts: Please follow-up with her dance critic within a week of discharge Please follow-up with the cardiothoracic surgeon Dr. Duvall, within a week of discharge Please follow-up with the neurologist for further management of seizure medication Please take the medication as advised Medications at Discharge Discharge Medications: Stop taking the following medications: Morphine Sulfate (Morphine Sulfate) 15 MG TABLET ORAL TWICE DAILY as needed for PAIN Dicyclomine Hydrochloride (Bentyl) 10 MG CAPSULE ORAL THREE TIMES DAILY Qty = 9 Continue taking these medications: Pantoprazole Sodium (Pantoprazole Sodium) 40 MG TABLET.DR 1 Tablet ORAL DAILY Comments: Last Taken: 06/15/17 Time: 6:30 AM Levetiracetam (Keppra) 750 MG TABLET 1,500 Milligram ORAL TWICE DAILY Comments: Last Taken:06/15/17 Time:1000 Melatonin (Melatonin) 3 MG TABLET 2 Tablet ORAL TAKE AT BEDTIME Comments: NOT GIVEN IN HOSPITAL Amitriptyline HCl (Amitriptyline HCl) 25 MG TABLET 1 Tablet ORAL Every night Qty = 30 Comments: NOT GIVEN IN HOSPITAL Magnesium Oxide (Magnesium Oxide) 400 MG TABLET 1 Tablet ORAL TWICE DAILY Comments: Last Taken: 06/15/17 Time: 10 AM Divalproex Sodium (Divalproex Sodium ER) 250 MG TAB.ER.24H 3 Tablet ORAL THREE TIMES DAILY Comments: Last Taken:06/15/17 Time:1000 Topiramate (Topamax) 50 MG TABLET 2 Tablet ORAL Every Morning Comments: Last Taken:06/15/17 Time:1000 Topiramate (Topamax) 50 MG TABLET 3 Tablet ORAL Every night Comments: Last Taken:06/14/17 Time:2200 Start taking the following new medications: Acetaminophen (Tylenol) 325 MG TABLET 650 Milligram ORAL EVERY SIX HOURS NEEDED as needed for PAIN SCALE 1-3 ( MILD) Qty = 60 No Refills Nicotine (Nicoderm Cq) 21 MG/24 HOUR PATCH.TD24 1 Patch On the skin DAILY Qty = 28 No Refills Comments: Last Taken:06/15/17 Time:1000 The following medications have been changed: Old: Gabapentin (Gabapentin) 400 MG CAPSULE 3 Capsule ORAL THREE TIMES DAILY New: Gabapentin (Gabapentin) 400 MG CAPSULE 2 Capsule ORAL THREE TIMES DAILY Qty = 60 Comments: Last Taken: 06/15/17 Time: 4:30 PM Copies To: Remigio CHAVEZ,Calos Long; Avel Salmeron MD, Jr., MD,Arias Amaya Attending Review Statement Documenting Attending: Justin Perez MD Other Findings: The patient was seen and discussed with house staff. Agree with the plan of care as outlined. OK to discharge today to [facility] for rehab. No narcotics at present needed. Neuro follow-up as OP.
[2017-06-15 17:45] VITALS: BP 102/70
== END 2017-06-15 19:52 | DRG 871 ==
LOC: ERH 15:00 → ERHI 17:49 → 1NO 17:49 → CRI 17:49 → ENRESERV 19:21 → ENTRNSPT 19:56 → EDTRNSPTSTS 19:58 → EDTRNSPT 19:58 → 2NA 20:25 → CMPTRNSPT 21:19 → CRI 21:35 → 1NO 06-12 16:38 → ENTRNSPT 06-14 15:46 → EDTRNSPT 06-14 15:53 → EDTRNSPTSTS 06-14 15:53 → CMPTRNSPT 06-14 16:12 → 1NO 06-15 08:58
PROVIDERS: Hospitalist; Internal Medicine; Physician Assistant Medical; Student in an Organized Health Care Education/Training Program
PROC: 02HK3JZ Insertion of Pacemaker Lead into Right Ventricle, Percutaneous Approach (ICD-10-PCS; principal; 2017-06-14)
PROC: 0JH606Z Insertion of Pacemaker, Dual Chamber into Chest Subcutaneous Tissue and Fascia, Open Approach (ICD-10-PCS; principal; 2017-06-14)
PROC: 02H63JZ Insertion of Pacemaker Lead into Right Atrium, Percutaneous Approach (ICD-10-PCS; principal; 2017-06-14)
DX: A41.9 Sepsis, unspecified organism (principal); J69.0 Pneumonitis due to inhalation of food and vomit; F32.9 Major depressive disorder, single episode, unspecified; R00.1 Bradycardia, unspecified; F41.9 Anxiety disorder, unspecified; G40.909 Epilepsy, unspecified, not intractable, without status epilepticus; K21.9 Gastro-esophageal reflux disease without esophagitis; D18.03 Hemangioma of intra-abdominal structures; J44.9 Chronic obstructive pulmonary disease, unspecified; M54.9 Dorsalgia, unspecified; Z87.820 Personal history of traumatic brain injury; K59.03 Drug induced constipation; T40.605A Adverse effect of unspecified narcotics, initial encounter; E87.6 Hypokalemia; G89.4 Chronic pain syndrome; Z79.891 Long term (current) use of opiate analgesic; F17.200 Nicotine dependence, unspecified, uncomplicated
CPT/HCPCS: 1NP; CCU; 36415; 36592; 71045; 74176; 80307; 81003; 82436; 87040; 87070; 87086; 87449; 87450; 87804; 87804-59; 93005; 93010; 93306; 94799; 96374; 96375; 97116-GO; 97161-GP; 99232; 99291; C1785; C1898; G0480; J0131; J0456; J0690; J0696; J1100; J1644; J1650; J1885; J1953; J2310; J3370; J7040; J7060

== ENCOUNTER 2017-08-04 20:31 | Emergency (ER) | payer OTHER ==
[~2017-08-04] VITALS: Ht 182.9 cm; Wt 74.4 kg
[~2017-08-04 20:31] MED LIST changes: +IBUPROFEN600 M1 PO; +LIDOCAINE1 EACH TOP; +NICODERM CQ1 EAC2 TOP; +REMERON15 M2 PO; +TOPAMAX50 M1 PO; +TOPIRAMATE50 M1 PO; +TYLENOL325 M1 PO
[2017-08-04 20:39] VITALS: BP 113/74
--- NOTE | 2017-08-04 21:18 | RADIOLOGY REPORT ---
EXAMINATION: XR FOOT, LEFT CLINICAL INFORMATION: Difficulty ambulating and left leg pain. COMPARISON: None TECHNIQUE: AP, lateral, and oblique views of the left foot. FINDINGS: No acute fracture or dislocation is seen. Bony demineralization is noted in the foot. No significant degenerative changes are seen. Soft tissues appear normal. IMPRESSION: No acute osseous abnormality. Bony demineralization of the left foot.
--- NOTE | 2017-08-04 22:30 | ED UPPER/LOWER EXTREMITY COMPL ---
History of Present Illness General Chief Complaint: Foot or Ankle Injury Stated Complaint: PT IS HERE FOR LT FOOT PAIN Source: patient Exam Limitations: no limitations Vital Signs & Intake/Output Vital Signs & Intake/Output Vital Signs Date Time Temp Pulse Resp B/P B/P Pulse O2 O2 Flow FiO2 Mean Ox Delivery Rate 08/04 2038 97.6 77 20 113/74 97 Room Air Allergies Coded Allergies: Sulfa (Sulfonamide Antibiotics) (Intermediate, HIVES 06/09/17) haloperidol (From HALDOL) (Intermediate, BRADYCARDIA 07/11/17) hydrocodone (From VICODIN) (Intermediate, HIVES 06/09/17) tramadol (Intermediate, HIVES 06/09/17) aripiprazole (Intermediate, RASH PER PT. 06/09/17) Reconcile Medications Acetaminophen (Tylenol) 325 MG TABLET 650 MG PO Q6P PRN PAIN SCALE 1-3 (MILD) Amitriptyline HCl 25 MG TABLET 1 TAB PO QPM psychiatric/sleep Divalproex Sodium (Divalproex Sodium ER) 250 MG TAB.ER.24H 3 TAB PO TID seizures (Reported) Fluticasone/Salmeterol (Advair 250-50 Diskus) 250 MCG-50 MCG/DOSE BLST.W.DEV 1 PUF INH BID BREATHING PROBLEMS (Reported) Gabapentin 400 MG CAPSULE 2 CAP PO TID SEIZURES Ibuprofen 600 MG TABLET 1 TAB PO TID PAIN CONTROL (Reported) with food Levetiracetam (Keppra) 750 MG TABLET 1,500 MG PO BID SEIZURES (Reported) Levetiracetam (Keppra) 750 MG TABLET 1 TAB PO BID SEIZURES (Reported) Lidocaine 5 % ADH..PATCH 1 PAT TOP DAILY PAIN CONTROL (Reported) Magnesium Oxide 400 MG TABLET 1 TAB PO BID SUPPLEMENT (Reported) Melatonin 3 MG TABLET 2 TAB PO QHS SLEEP (Reported) Mirtazapine (Remeron) 15 MG TABLET 1 TAB PO QPM SLEEP HELP (Reported) Nicotine (Nicoderm Cq) 21 MG/24 HOUR PATCH.TD24 1 PAT TOP DAILY SMOCKING Pantoprazole Sodium 40 MG TABLET.DR 1 TAB PO DAILY GI (Reported) Topiramate (Topamax) 50 MG TABLET 2 TAB PO QAM seizure (Reported) Topiramate (Topamax) 50 MG TABLET 3 TAB PO QPM seizure (Reported) Triage Note: PT BIBA FOR EVAL OF L SIDE OF FOOT PAIN. PT STATES "MAY BE FROM HITTING MY SHOES ON A BRICK WALL YESTERDAY TO GET MUD OFF OF THEM." +PMS, -DEFORMITY. ICE PACK APPLIED. PER PT HAS BEEN TAKING TYLENOL WITH MINIMAL RELIEF. WALKS WITH CANE AT BASELINE. Triage Nurses Notes Reviewed? yes Onset: Gradual Duration: day(s): (1) Timing: remote history Severity: moderate Severity Numbers: 7 Pain/Injury Location: Left: Foot. Method of Injury: direct blow Modifying Factors: Improves With: immobilization. Worsens With: movement. HPI: Patient is a 51-year-old male presenting to the emergency department complaining of left foot pain after hitting his for a number equalities training at moderate office his shoe. Pain is achy and throbbing worse with range of motion and palpation. Denies numbness or tingling. No history of injury to the foot in the past, nothing recent. Denies taking any medications to help. Denies any other injuries. (Payal Boucher) Past History Travel History Traveled to [place] past 21 day No Medical History Any Pertinent Medical History? see below for history Neurological: seizure EENT: NONE Cardiovascular: NONE Respiratory: COPD Gastrointestinal: GERD, PANCREATITIS Hepatic: NONE Renal: NONE Musculoskeletal: chronic back pain, osteoarthritis, BACK PAIN STIMULATOR Psychiatric: anxiety, depression Endocrine: NONE Blood Disorders: NONE Cancer(s): NONE SOCIAL WORK THERAPIST/Reproductive: NONE History of MRSA: Yes History of VRE: No History of CDIFF: No Surgical History Surgical History: hernia repair-inguinal (2013) Psychosocial History Who do you live with Patient/Self What is your primary language Guinean Tobacco Use: Current Daily Use Daily Tobacco Use Amount/Type: => 5 Cigarettes daily Family History Hx Contributory? No (Payal Boucher) Review of Systems Review of Systems Constitutional: Reports: no symptoms. Comments Review of systems: See HPI, All other systems negative. Constitutional, no chills fever or weight loss HEENT: No visual changes no sore throat no congestion Cardiovascular: No chest pain Skin, no jaundice no rashes Respiratory: No dyspnea GI: No nausea no vomiting Muscle skeletal: no back pain, no neck pain, Neurologic: No numbness Psych: No increased stress anxiety or depression,. Heme/endocrine: No bruising no bleeding no polyuria or polydipsia Immunology: No splenectomy or history of AIDS (Payal Boucher) Physical Exam Physical Exam General Appearance: well developed/nourished, no apparent distress, alert, awake , comfortable Comments: Well-developed well-nourished person in no acute distress HEENT: Atraumatic, normocephalic Neck: Normal inspectionmotion Respiratory: No respiratory distress. Extremity: No edema, no calf tenderness to palpation, normal and equal pulses. Tender to palpation over the dorsum of the left foot over the fourth and third metatarsals. No signs of ecchymosis erythema or edema. Nontender to palpation over the medial and lateral aspect of the left ankle. Able to move all toes on the left foot without difficulty or pain. Neuro: Alert oriented x3, motor sensory normal Skin: No appreciable rash on exposed skin, skin is warm and dry. Psych: Mood and affect is normal, memory and judgment is normal. (Payal Boucher) Progress Differential Diagnosis: contusion, fracture, sprain, tendon injury Plan of Care: Patient placed in Bharat wrap. He'll continue icing and take [id number] Tylenol as directed for any aches or pains. pt non-toxic. Diagnostic Imaging: Viewed by Me: Radiology Read. Discussed w/RAD: Radiology Read. Radiology Impression: PATIENT: KARLA PATTON PRESENT AGE: 51 PATIENT ACCOUNT NO: [id number] : 67 LOCATION: [facility] ORDERING PHYSICIAN: Fred Henderson DO (TBS) SERVICE DATE: 08/04/17 EXAM TYPE: RAD - XRY-FOOT COMPLETE, LEFT EXAMINATION: XR FOOT, LEFT CLINICAL INFORMATION: Difficulty ambulating and left leg pain. COMPARISON: None TECHNIQUE : AP, lateral, and oblique views of the left foot. FINDINGS: No acute fracture or dislocation is seen. Bony demineralization is noted in the foot. No significant degenerative changes are seen. Soft tissues appear normal. IMPRESSION: No acute osseous abnormality. Bony demineralization of the left foot. DICTATED BY: Levy Timmons MD DATE/TIME DICTATED:08/04/172108 OLIVING MACHINE OPERATOR:ARIELLE DATE/TIME TRANSCRIBED:08/04/172108 CONFIDENTIAL, DO NOT COPY WITHOUT APPROPRIATE AUTHORIZATION. <Electronically signed in Other Vendor System> (Payal Boucher) Departure Departure Time of Disposition: 2226 Disposition: HOME OR SELF CARE Condition: Stable Clinical Impression Primary Impression: Contusion Qualifiers: Encounter type: initial encounter Contusion area: foot Referrals: Jaron Salmeron MD (PCP/Family) Additional Instructions: Follow-up with your primary care physician in the next 5-7 days, call to make an appointment. Wear Bharat wrap for support. Take [id number] Tylenol as directed for any aches or pains. Ice affected area. Return for worsening symptoms or concerns. Departure Forms: Customer Survey General Discharge Information (Payal Boucher) PA/BLOCK FEEDER Co-Sign Statement Statement: ED Attending supervision documentation- [] I saw and evaluated the patient. I have also reviewed all the pertinent lab results and diagnostic results. I agree with the findings and the plan of care as documented in the PA's/BLOCK FEEDER's documentation. [X] I have reviewed the ED Record and agree with the PA's/BLOCK FEEDER's documentation. [] Additions or exceptions (if any) to the PAs/BLOCK FEEDER's note and plan are summarized below: [] (John CHAVEZ,Levy White)
== END 2017-08-04 23:32 ==
LOC: ERH 20:31
DX: S90.32XA Contusion of left foot, initial encounter (principal); W22.01XA Walked into wall, initial encounter; Y92.9 Unspecified place or not applicable; Y93.9 Activity, unspecified
CPT/HCPCS: 73630-LT